=== PATIENT | male | born 1940 | race Caucasian/White ===

== ENCOUNTER 2017-02-12 09:50 | Emergency (ER) | payer MEDICARE ==
[~2017-02-12] VITALS: Ht 182.9 cm; Wt 93.0 kg
[~2017-02-12 09:50] MED LIST: ALLO300T PO; CLON1TAB3 PO; CLOP75TA PO; ESOM40CA PO; FLUO40CA2 PO; LOSA50TA6 PO; SIMV80TA3 PO; SUCR1TAB29 PO; TAMS0.4C2 PO
[2017-02-12] MEDS ORDERED: ONDANSETRON PF 4 MG/2 ML VIAL. IV ONE (10:15)
[2017-02-12] MEDS ORDERED: IV NORMAL SALINE 1000ML BAG 1,000 ML IV ONE (10:15)
--- NOTE | 2017-02-12 10:17 | RAD ---
Indication: Dizziness and lightheadedness beginning today. Technique: Upright portable chest radiograph was obtained. No comparison is available. Findings: The lungs are clear. The cardiopulmonary silhouette is within normal limits. The bony structures are intact. Leads overlie the patient. Impression: No active pulmonary disease.
[2017-02-12 10:25] LABS: CALCIUM 9.5 mg/dL (8.5-10.1); CREATININE 1.3 mg/dL (0.7-1.3); GFR 53.5
[2017-02-12 10:27] LABS: BASO % 1 % (0-3); EOS % 1 % (0-3); HEMATOCRIT 44.3 % (39.0-53.0); HEMOGLOBIN 14.7 g/dL (13.0-17.5); LYMPH # 1.2 x10^3/uL (1.0-4.8); LYMPH % 17 % (24-48); MEAN CORPUSCULAR HEMOGLOBIN 29 pg (25-35); MEAN CORPUSCULAR HGB CONC 33 g/dL (31-37); MEAN CORPUSCULAR VOLUME 86 fL (79-100); MONO % 10 % (0-9); NEUT % 72 % (31-73); PLATELET COUNT 168 x10^3/uL (140-400); RED BLOOD COUNT 5.17 x10^6/uL (4.30-5.70); RED CELL DISTRIBUTION WIDTH 14.3 % (11.5-14.5); WHITE BLOOD COUNT 7.4 x10^3/uL (4.0-11.0)
[2017-02-12] MEDS ORDERED: IOHEXOL 300 MG/ML 75 ML VIAL IV ONE (10:30)
[2017-02-12 10:31] LABS: ALBUMIN 3.8 g/dL (3.4-5.0); ALBUMIN/GLOBULIN RATIO 1.5 (1.0-1.7); MAGNESIUM 2.1 mg/dL (1.8-2.4); TOTAL BILIRUBIN 0.6 mg/dL (0.2-1.0); TOTAL PROTEIN 6.4 g/dL (6.4-8.2)
[2017-02-12 10:32] LABS: POTASSIUM ISTAT 3.9 mmol/L (3.5-5.0)
[2017-02-12 10:39] LABS: CKMB MASS 0.7 ng/mL (0.0-3.6); CREATINE KINASE 63 U/L (39-308)
[2017-02-12] MEDS ORDERED: CONTRAST GIVEN MC PRN (10:45)
--- NOTE | 2017-02-12 11:11 | RAD ---
Indication: 76-year-old with abdominal pain and near syncopal episode. Technique: Axial images and coronal and sagittal reformatted images are provided. 60 mL of intravenous Omnipaque 300 was administered without complication. No comparison is available. One or more of the following individualized dose reduction techniques were utilized for this examination: 1. Automated exposure control 2. Adjustment of the mA and/or kV according to patient size 3. Use of iterative reconstruction technique Findings: There is atelectasis in the lung bases. There is no pleural effusion. The heart is not enlarged. There is fatty infiltration of the liver. Gallbladder is unremarkable. Spleen is not enlarged. Pancreas and left adrenal are unremarkable. Right adrenal nodule measures 14 mm. Kidneys are symmetrically perfused with bilateral cysts, largest on the left measuring 3.9 cm. There is atheromatous disease in the abdominal aorta with mild ectasia. There is no small bowel obstruction or mural thickening. Colon is grossly unremarkable. Normal appendix is visualized Bladder is unremarkable. Prostate is mildly enlarged. Calcified phleboliths are noted. Degenerative changes in the spine are greatest at the lumbosacral junction. Impression: 1. No acute abdominal findings. 2. Fatty infiltration of the liver, mild. 3. Probable cysts in each kidney 4. Indeterminate small right adrenal nodule.
--- NOTE | 2017-02-12 11:15 | EKG ---
[facility] [address] [place] [address] Test Date: 2017-02-12 Test Time: 10:00:10 Pat Name: COREEN MALIN Department: Room: Gender: M Sql Tech: : 1940 Requested By: JAYA SALGADO Order Number: [id number] Reading MD: Kirsten German Measurements Intervals [place] Rate: 65 P: -28 VA: 214 QRS: -9 QRSD: 82 T: 27 QT: 388 QTc: 408 Interpretive Statements SINUS RHYTHM LEFTWARD AXIS RI6.01 Unconfirmed report Compared to ECG 08/20/2016 09:53:53 No significant changes Electronically Signed On 02-12-2017 15:22:21 CDT by Kirsten German
[2017-02-12 13:43] VITALS: BP 130/72
[2017-02-12 13:49] LABS: BILIRUBIN,URINE NEGATIVE (NEG); GLUCOSE,URINE NEGATIVE (NEG); NITRITE,URINE NEGATIVE (NEG); PH,URINE 7.5; PROTEIN,URINE NEGATIVE (NEG-TRACE)
[2017-02-12 14:07] LABS: BACTERIA,URINE 0 /HPF (0-FEW); RBC,URINE RARE /HPF (0-2); WBC,URINE RARE /HPF (0-4)
--- NOTE | 2017-02-12 14:24 | PHYS DOC ---
Past Medical History Past Medical History: CVA, High Cholesterol, Hypertension, Other Additional Past Medical Histor: gout Past Surgical History: Other Additional Past Surgical Histo: cataract surgery Alcohol Use: None Drug Use: None Adult General Chief Complaint Chief Complaint: NEAR SYNCOPE HPI HPI Patient is a 76 year old male who presents after near syncopal episode. Patient reports she started having some lower abdominal pain at mandaen. He then got sweaty and lightheaded, and almost passed out. He did not actually lose consciousness. EMS was called; on their arrival patient had heart rate in the 40s, and he was given 0.5 mg of atropine. Heart rate increased to 60s, and has been there since. Patient does report some nausea, and vomited once. He denies any chest discomfort or shortness of breath at any point. He is no longer lightheaded. Review of Systems Review of Systems Constitutional: Episode of lightheadedness, diaphoresis. Denies fever or chills Eyes: Denies change in visual acuity or eye pain HENT: Denies nasal congestion or sore throat Respiratory: Denies cough or shortness of breath Cardiovascular: Denies chest pain GI: Nausea, emesis x1. Denies abdominal pain, bloody stools or diarrhea : Denies dysuria or hematuria Musculoskeletal: Denies back pain or joint pain Integument: Denies rash or skin lesions Neurologic: Denies headache, focal weakness or sensory changes Current Medications Current Medications Current Medications Medications (Trade) Dose Ordered Sig/[place] Start Time Stop Time Status Last Admin Dose Admin Info (Do NOT chart on this entry -- for MONITORING) 1 each PRN DAILY PRN 02/12/17 10:45 02/12/17 15:14 DC Iohexol (Omnipaque 300 Mg/ml) 75 ml 1X ONCE 02/12/17 10:30 02/12/17 10:31 DC 02/12/17 10:50 75 ML Ondansetron HCl (Zofran) 4 mg 1X ONCE 02/12/17 10:15 02/12/17 10:16 DC 02/12/17 10:26 4 MG Sodium Chloride (Iv Sodium Chloride 0.9% 1000ml Bag) 1,000 ml @ 1,000 mls/hr 1X ONCE 02/12/17 10:15 02/12/17 11:14 DC 02/12/17 10:26 1,000 MLS/HR Allergies Allergies Allergies Coded Allergies Type Severity Reaction Last Updated Verified No Known Drug Allergies 08/20/16 No Physical Exam Physical Exam Constitutional: Well developed, well nourished, no acute distress, non-toxic appearance HENT: Normocephalic, atraumatic, bilateral external ears normal Eyes: PERRL, EOMI, conjunctiva normal, no discharge Neck: Normal range of motion, no stridor Cardiovascular: Heart rate normal, regular rhythm, no murmur Lungs & Thorax: Bilateral breath sounds clear to auscultation Abdomen: Bowel sounds normal, soft, non-distended, no TTP Skin: Warm, dry, no erythema, no rash Extremities: No obvious deformity, no edema Neurologic: Alert and oriented X 3, GCS 15, CN II-XII grossly intact, strength intact and symmetrical throughout, sensation to light touch intact throughout, no dystaxia noted Psychologic: Affect normal, judgement normal, mood normal Current Patient Data Vital Signs Vital Signs Date Time Temp Pulse Resp B/P Pulse Ox O2 Delivery O2 Flow Rate FiO2 02/12/17 13:43 56 130/72 99 Room Air 02/12/17 13:13 19 02/12/17 09:50 97.4 97.4 Lab Values Laboratory Tests Test 02/12/17 10:00 02/12/17 10:27 02/12/17 13:28 White Blood Count 7.4x10^3/uL (4.0-11.0) Red Blood Count 5.17x10^6/uL (4.30-5.70) Hemoglobin 14.7g/dL (13.0-17.5) Hematocrit 44.3% (39.0-53.0) Mean Corpuscular Volume 86fL (79-100) Mean Corpuscular Hemoglobin 29pg (25-35) Mean Corpuscular Hemoglobin Concent 33g/dL (31-37) Red Cell Distribution Width 14.3% (11.5-14.5) Platelet Count 168x10^3/uL (140-400) Neutrophils (%) (Auto) 72% (31-73) Lymphocytes (%) (Auto) 17% (24-48) L Monocytes (%) (Auto) 10% (0-9) H Eosinophils (%) (Auto) 1% (0-3) Basophils (%) (Auto) 1% (0-3) Neutrophils # (Auto) 5.3x10^3uL (1.8-7.7) Lymphocytes # (Auto) 1.2x10^3/uL (1.0-4.8) Monocytes # (Auto) 0.7x10^3/uL (0.0-1.1) Eosinophils # (Auto) 0.1x10^3/uL (0.0-0.7) Basophils # (Auto) 0.0x10^3/uL (0.0-0.2) Sodium Level 143mmol/L (136-145) Potassium Level 4.0mmol/L (3.5-5.1) Chloride Level 107mmol/L (98-107) Carbon Dioxide Level 33mmol/L (21-32) H Anion Gap 3 (6-14) L 15mmol/L (6-14) H Blood Urea Nitrogen 23mg/dL (8-26) Creatinine 1.3mg/dL (0.7-1.3) Estimated GFR (Cockcroft-Gault) 53.5 BUN/Creatinine Ratio 18 (6-20) Glucose Level 101mg/dL (70-99) H 93mg/dL (70-99) Lactic Acid Level 1.6mmol/L (0.4-2.0) Calcium Level 9.5mg/dL (8.5-10.1) Magnesium Level 2.1mg/dL (1.8-2.4) Total Bilirubin 0.6mg/dL (0.2-1.0) Aspartate Amino Transferase (AST) 24U/L (15-37) Alanine Aminotransferase (ALT) 34U/L (16-63) Alkaline Phosphatase 84U/L (46-116) Creatine Kinase 63U/L (39-308) Creatine Kinase MB (Mass) 0.7ng/mL (0.0-3.6) Creatine Kinase MB Relative Index % (0-4) Troponin I Quantitative < 0.017ng/mL (0.000-0.055) Total Protein 6.4g/dL (6.4-8.2) Albumin 3.8g/dL (3.4-5.0) Albumin/Globulin Ratio 1.5 (1.0-1.7) Lipase 141U/L (73-393) POC Hemoglobin 15.0g/dL (14-18) POC Hematocrit 44% (37-52) POC Sodium 141mmol/L (135-145) POC Potassium 3.9mmol/L (3.5-5.0) POC Chloride 99mmol/L (98-110) POC Total CO2 32mmol/L (23-32) POC Blood Urea Nitrogen 25mg/dL (8-26) POC Creatinine 1.2mg/dL (0.5-1.4) POC Ionized Calcium (Yolanda) 1.28mmol/L (1.13-1.32) Urine Collection Type Void Urine Color Yellow Urine Clarity Clear Urine pH 7.5 Urine Specific Isabel[place] >=1.030 Urine Protein Negativemg/dL (NEG-TRACE) Urine Glucose (UA) Negativemg/dL (NEG) Urine Ketones (Stick) Negativemg/dL (NEG) Urine Blood Negative (NEG) Urine Nitrite Negative (NEG) Urine Bilirubin Negative (NEG) Urine Urobilinogen Dipstick 1.0mg/dL (0.2 mg/dL) Urine Leukocyte Esterase Negative (NEG) Urine RBC Rare/HPF (0-2) Urine WBC Rare/HPF (0-4) Urine Squamous Epithelial Cells None/LPF Urine Bacteria 0/HPF (0-FEW) Urine Hyaline Casts Few/HPF Urine Mucus Slight/LPF Laboratory Tests 02/12/17 10:00 Laboratory Tests 02/12/17 10:00 02/12/17 10:27 EKG EKG EKG (my read): sinus rhythm, rate 65, borderline LAD, intervals wnl, no acute ST /T changes Radiology/Procedures Radiology/Procedures CT A/P: Impression: 1. No acute abdominal findings. 2. Fatty infiltration of the liver, mild. 3. Probable cysts in each kidney 4. Indeterminate small right adrenal nodule. CXR: Impression: No active pulmonary disease. Course & Med Decision Making Course & Med Decision Making Pertinent Labs and Imaging studies reviewed. (See chart for details) Patient is 76-year-old male who presents after a near syncopal episode. Description sounds like vasovagal episode. Patient essentially asymptomatic at this point in time (other than minimal nausea). Physical exam shows no concerning findings. Will obtain EKG, chest x-ray, CT abdomen/pelvis, labs to evaluate. IV fluid bolus and dose of Zofran ordered. EKG and imaging results as above. Labs largely unremarkable. Discussed results with patient, who remains asymptomatic. Patient discharged home with instructions for close follow-up, strict return precautions. Dragon Disclaimer Dragon Disclaimer This electronic medical record was generated, in whole or in part, using a voice recognition dictation system. Departure Departure Impression: Primary Impression: Vasovagal episode Disposition: HOME, SELF-CARE Condition: IMPROVED Referrals: BATOOL KIMBLE (PCP) Patient Instructions: Vagal Nerve Stimulation Additional Instructions: Thank you for allowing us to provide care today in the Emergency Department. It appears that her symptoms this morning were caused by a vasovagal episode. Schedule a follow up appointment with your primary care doctor. Return promptly to the Emergency Department if you develop any new or concerning symptoms, such as difficulty breathing or loss of consciousness. BERTHA VALERIO MD Feb 12, 2017 14:24
== END 2017-02-12 14:35 | disposition home or self-care (01) ==
LOC: ER 09:50
DX: R55 Syncope and collapse (principal); R11.2 Nausea with vomiting, unspecified; R10.30 Lower abdominal pain, unspecified; E78.00 Pure hypercholesterolemia, unspecified; I10 Essential (primary) hypertension; Z86.73 Personal history of transient ischemic attack (TIA), and cerebral infarction without residual deficits; M10.9 Gout, unspecified; Z98.49 Cataract extraction status, unspecified eye
CPT/HCPCS: 36415; 71010; 74177; 80047; 80053; 81001; 82553; 83605; 83690; 83735; 84484; 85027; 93005; 96361; 96374; 99285; J2405; J7030; Q9967

== ENCOUNTER 2017-10-15 08:55 | Inpatient (IN) | payer MEDICARE ==
[~2017-10-15] VITALS: Ht 180.3 cm; Wt 89.4 kg
[~2017-10-15 08:55] MED LIST changes: +LANS15CA78 PO; -SUCR1TAB29 PO; +SUCR1TAB35 PO
--- NOTE | 2017-10-15 09:21 | EKG ---
[facility] [address] [place] [address] Test Date: 2017-10-15 Test Time: 09:10:09 Pat Name: COREEN MALIN Department: Room: Gender: M Financial Advocate: MADHURI : 1940 Requested By: JAYA STOVER Order Number: [id number] Reading MD: Adal Guerrero MD Measurements Intervals [place] Rate: 74 P: 0 AK: 188 QRS: -1 QRSD: 84 T: 22 QT: 362 QTc: 402 Interpretive Statements SINUS RHYTHM Electronically Signed On 10-16-2017 12:51:49 CONTRACT IMPLEMENTATION ANALYST by Adal Guerrero MD
--- NOTE | 2017-10-15 09:43 | RAD ---
AP PORTABLE CHEST Clinical Indication: Syncope. Upper abdominal pain and nausea. Comparison: Two-view chest 07/11/2017. Findings: There is left chest dual-chamber pacer. The cardiomediastinal silhouette is normal. Linear scarring or atelectasis at the left costophrenic angle. Lungs are otherwise clear. There is no pneumothorax. No pleural effusion is appreciated. There is no acute bone abnormality. IMPRESSION: No acute cardiopulmonary process.
[2017-10-15 10:06] LABS: BASO % 0 % (0-3); CALCIUM 9.6 mg/dL (8.5-10.1); CREATININE 1.1 mg/dL (0.7-1.3); EOS % 0 % (0-3); GFR 64.7; HEMATOCRIT 50.5 % (39.0-53.0); HEMOGLOBIN 16.8 g/dL (13.0-17.5); LYMPH # 0.8 x10^3/uL (1.0-4.8); LYMPH % 12 % (24-48); MEAN CORPUSCULAR HEMOGLOBIN 30 pg (25-35); MEAN CORPUSCULAR HGB CONC 33 g/dL (31-37); MEAN CORPUSCULAR VOLUME 89 fL (79-100); MONO % 7 % (0-9); NEUT % 80 % (31-73); PLATELET COUNT 197 x10^3/uL (140-400); POTASSIUM 3.7 mmol/L (3.5-5.1); RED BLOOD COUNT 5.68 x10^6/uL (4.30-5.70); RED CELL DISTRIBUTION WIDTH 14.4 % (11.5-14.5); WHITE BLOOD COUNT 6.6 x10^3/uL (4.0-11.0)
--- NOTE | 2017-10-15 10:07 | ED.ADGEN ---
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 Guerrero. Patient states that he was at [employer], he states that he been standing for approximately 5 minutes, [facility], when he had a sudden onset of sharp shooting pain underneath his "breastbone", without radiation, associated with nausea and one episode of vomiting, then had a witnessed syncopal event. Patient was lowered to the ground , did not fall or strike his head, although he does have a small abrasion on his knee and on his finger for when he swayed 4. He denies any focal weakness, numbness or tingling, any headache, any vision changes, any changes in cognition , any preceding GI symptoms, chest pain shortness of breath, recent travel, swelling extremities or other complaints. He states that "this is exactly like what happened" with his 2 previous episodes of syncope, which also occurred while he was at [employer]. Patient's episode was witnessed by family, they deny any seizure-like activity, or any deviation from the patient reports, they stated that he regained consciousness quickly, but it took a few minutes to come back to normal. Patient is currently a and O 4 in the emergency department moving all extremities and denying all complaints, he states that he is feeling much better. Tetanus is up-to-date. Review of Systems Review of Systems Constitutional: Denies fever or chills. [] Eyes: Denies change in visual acuity. [] HENT: Denies nasal congestion or sore throat. [] Respiratory: Denies cough or shortness of breath. [] Cardiovascular: Denies chest pain or edema. [] Sudden onset of substernal chest pain associated with nausea and vomiting with a syncopal episode. GI: Denies abdominal pain, nausea, vomiting, bloody stools or diarrhea. [] : Denies dysuria. [] Musculoskeletal: Denies back pain or joint pain. [] Integument: Denies rash. [] Neurologic: Denies headache, focal weakness or sensory changes. [] Syncope. Endocrine: Denies polyuria or polydipsia. [] Lymphatic: Denies swollen glands. [] Psychiatric: Denies depression or anxiety. [] Allergies Allergies Allergies Coded Allergies Type Severity Reaction Last Updated Verified No Known Drug Allergies 08/20/16 No Physical Exam Physical Exam Constitutional: Well developed, well nourished, no acute distress, non-toxic appearance. [] HENT: Normocephalic, atraumatic, bilateral external ears normal, oropharynx moist, no oral exudates, nose normal. [] Eyes: PERRLA, EOMI, conjunctiva normal, no discharge. [] Neck: Normal range of motion, no tenderness, supple, no stridor. [] Cardiovascular:Heart rate regular rhythm, no murmur, S1, S2, no rubs or gallops. No chest wall crepitus or tenderness, patient with pacemaker in place, site is clean dry and intact in the left chest wall, no crepitus, no abnormalities identified.[] Lungs & Thorax: Bilateral breath sounds clear to auscultation [] Abdomen: Bowel sounds normal, soft, no tenderness, no masses, no pulsatile masses. [] Skin: Warm, dry, no erythema, no rash. [] Back: No tenderness, no CVA tenderness. [] Extremities: No tenderness, no cyanosis, no clubbing, ROM intact, no edema. Negative Homans sign. Patient noted to have a small abrasion just distal to the left knee, full range of motion without pain, noted to have a small abrasion on the fifth phalanx, with full range of motion that is painless.[] Neurologic: Alert and oriented X 3, normal motor function, normal sensory function, no focal deficits noted. [] Psychologic: Affect normal, judgement normal, mood normal. [] Current Patient Data Vital Signs Vital Signs Date Time Temp Pulse Resp B/P (MAP) Pulse Ox O2 Delivery O2 Flow Rate FiO2 10/15/17 12:02 72 20 142/74 (96) 98 Room Air 10/15/17 09:33 98.2 98.2 Lab Values Laboratory Tests Test 10/15/17 09:30 10/15/17 11:10 White Blood Count 6.6 x10^3/uL (4.0-11.0) Red Blood Count 5.68 x10^6/uL (4.30-5.70) Hemoglobin 16.8 g/dL (13.0-17.5) Hematocrit 50.5 % (39.0-53.0) Mean Corpuscular Volume 89 fL (79-100) Mean Corpuscular Hemoglobin 30 pg (25-35) Mean Corpuscular Hemoglobin Concent 33 g/dL (31-37) Red Cell Distribution Width 14.4 % (11.5-14.5) Platelet Count 197 x10^3/uL (140-400) Neutrophils (%) (Auto) 80 % (31-73) H Lymphocytes (%) (Auto) 12 % (24-48) L Monocytes (%) (Auto) 7 % (0-9) Eosinophils (%) (Auto) 0 % (0-3) Basophils (%) (Auto) 0 % (0-3) Neutrophils # (Auto) 5.3 x10^3uL (1.8-7.7) Lymphocytes # (Auto) 0.8 x10^3/uL (1.0-4.8) L Monocytes # (Auto) 0.5 x10^3/uL (0.0-1.1) Eosinophils # (Auto) 0.0 x10^3/uL (0.0-0.7) Basophils # (Auto) 0.0 x10^3/uL (0.0-0.2) Prothrombin Time 12.9 SEC (11.7-14.0) Prothrombin Time INR 1.0 (0.8-1.1) PTT 28 SEC (24-38) Sodium Level 138 mmol/L (136-145) Potassium Level 3.7 mmol/L (3.5-5.1) Chloride Level 101 mmol/L (98-107) Carbon Dioxide Level 32 mmol/L (21-32) Anion Gap 5 (6-14) L Blood Urea Nitrogen 15 mg/dL (8-26) Creatinine 1.1 mg/dL (0.7-1.3) Estimated GFR (Cockcroft-Gault) 64.7 BUN/Creatinine Ratio 14 (6-20) Glucose Level 103 mg/dL (70-99) H Calcium Level 9.6 mg/dL (8.5-10.1) Magnesium Level 1.9 mg/dL (1.8-2.4) Total Bilirubin 0.9 mg/dL (0.2-1.0) Aspartate Amino Transferase (AST) 27 U/L (15-37) Alanine Aminotransferase (ALT) 42 U/L (16-63) Alkaline Phosphatase 96 U/L (46-116) Troponin I Quantitative < 0.017 ng/mL (0.000-0.055) Total Protein 7.0 g/dL (6.4-8.2) Albumin 4.3 g/dL (3.4-5.0) Albumin/Globulin Ratio 1.6 (1.0-1.7) Urine Collection Type Unknown Urine Color Nancy Urine Clarity Cloudy Urine pH 7.0 Urine Specific [place] 1.020 Urine Protein 30 mg/dL (NEG-TRACE) Urine Glucose (UA) Negative mg/dL (NEG) Urine Ketones (Stick) Trace mg/dL (NEG) Urine Blood Negative (NEG) Urine Nitrite Negative (NEG) Urine Bilirubin Small (NEG) Urine Urobilinogen Dipstick 1.0 mg/dL (0.2 mg/dL) Urine Leukocyte Esterase Small (NEG) Urine RBC 0 /HPF (0-2) Urine WBC 1-4 /HPF (0-4) Urine Squamous Epithelial Cells Few /LPF Urine Bacteria 0 /HPF (0-FEW) Urine Hyaline Casts Moderate /HPF Urine Mucus Slight /LPF Urine Opiates Screen Neg (NEG) Urine Methadone Screen Neg (NEG) Urine Barbiturates Neg (NEG) Urine Phencyclidine Screen Neg (NEG) Urine Amphetamine/Methamphetamine Neg (NEG) Urine Benzodiazepines Screen Neg (NEG) Urine Cocaine Screen Neg (NEG) Urine Cannabinoids Screen Neg (NEG) Urine Ethyl Alcohol Neg (NEG) Laboratory Tests 10/15/17 09:30 Laboratory Tests 10/15/17 09:30 EKG EKG EC: Sinus rhythm, left axis deviation, heart rate 74 bpm, no ST elevations, no depressions, aside from left axis deviation, no specific ECG abnormalities identified. QTC of 42, [place] 188, QRS of 84, as interpreted by me.[] Radiology/Procedures Radiology/Procedures [][facility] [address] [place] [address] IMAGING REPORT Signed PATIENT: COREEN MALIN ACCOUNT: [id number] : 1940 LOCATION: ER AGE: 77 SEX: M EXAM STATUS: PRE ER ORD. PHYSICIAN: JAYA STOVER DO REASON: Syncope PROCEDURE: PORTABLE CHEST 1V AP PORTABLE CHEST Clinical Indication: Syncope. Upper abdominal pain and nausea. Comparison: Two-view chest 07/11/2017. Findings: There is left chest dual-chamber pacer. The cardiomediastinal silhouette is normal. Linear scarring or atelectasis at the left costophrenic angle. Lungs are otherwise clear. There is no pneumothorax. No pleural effusion is appreciated. There is no acute bone abnormality. IMPRESSION: No acute cardiopulmonary process. DICTATED and SIGNED BY: JOSE RICE MD DATE: 10/15/17 0936 CC: JAYA STOVER DO; BATOOL KIMBLE ~ Course & Med Decision Making Course & Med Decision Making Pertinent Labs and Imaging studies reviewed. (See chart for details) Patient well-appearing at this time, and at 4, CT of head obtained along with imaging of the chest, laboratory studies, an interrogation of the patient's pacemaker. No concerning findings were identified. I did discuss this with patient and family at bedside, due to the patient's age, comorbidities, and unclear etiology of syncopal be, although it may be vasovagal, patient is agreeable for admission the hospital for acute monitoring and evaluation. I did discuss with Dr. Stringer of internal medicine, patient was accepted to her service as a full admission to the medical telemetry floor, with consultation placed for cardiology. Patient remained stable and comfortable in the emergency department without recurrence of symptoms, with bridge orders entered per discussion. Dragon Disclaimer Dragon Disclaimer This electronic medical record was generated, in whole or in part, using a voice recognition dictation system. Departure Impression: Primary Impression: Syncope Disposition: ADMITTED INPATIENT Condition: STABLE JAYA STOVER DO Oct 15, 2017 10:07
[2017-10-15 10:13] LABS: ALBUMIN 4.3 g/dL (3.4-5.0); ALBUMIN/GLOBULIN RATIO 1.6 (1.0-1.7); MAGNESIUM 1.9 mg/dL (1.8-2.4); TOTAL BILIRUBIN 0.9 mg/dL (0.2-1.0)
[2017-10-15 10:22] LABS: PROTHROMBIN TIME PATIENT 12.9 SEC (11.7-14.0)
--- NOTE | 2017-10-15 10:37 | RAD ---
PQRS Compliance Statement: One or more of the following individualized dose reduction techniques were utilized for this examination: 1. Automated exposure control 2. Adjustment of the mA and/or kV according to patient size 3. Use of iterative reconstruction technique CT HEAD WITHOUT CONTRAST History: Syncope x this morning . Comparison: CT head without contrast 08/20/2016. MR brain with and without contrast, 08/21/2016. Technique: Axial images are obtained of the head from the skull base through the vertex without IV contrast. Findings: No mass-effect, midline shift, hemorrhage or obvious acute infarction is identified. Basilar cisterns are patent. The ventricles and sulci are prominent, consistent with age-related cerebral atrophy. There is subcortical and periventricular white matter hypoattenuation. This is a nonspecific finding but is commonly due to chronic small vessel ischemic disease in a patient of this age. Bone windows demonstrate no acute calvarial abnormality. The visualized paranasal sinuses appear clear. Mastoid air cells are well aerated. IMPRESSION: No acute intracranial abnormality. Stable senescent changes.
[2017-10-15 11:17] LABS: BILIRUBIN,URINE SMALL (NEG); GLUCOSE,URINE NEGATIVE (NEG); NITRITE,URINE NEGATIVE (NEG); PROTEIN,URINE 30 mg/dL (NEG-TRACE)
[2017-10-15 11:23] LABS: BARBITURATES NEG (NEG); BENZODIAZEPINES NEG (NEG); CANNABINOIDS NEG (NEG); COCAINE NEG (NEG); METHADONE NEG (NEG); OPIATES NEG (NEG); PHENCYCLIDINE NEG (NEG)
[2017-10-15 11:34] LABS: BACTERIA,URINE 0 /HPF (0-FEW); RBC,URINE 0 /HPF (0-2); SQUAMOUS EPITHELIAL CELL,UR FEW /LPF
[2017-10-15 13:30] VITALS: BP 160/84
[2017-10-15] MEDS ORDERED: ONDANSETRON PF 4 MG/2 ML VIAL. IV PRN (13:45)
[2017-10-15] MEDS ORDERED: ACETAMINOPHEN 325 MG TABLET. PO PRN (13:45)
--- NOTE | 2017-10-15 14:13 | PDOC2 ---
CONSULT Date of Consult Date of Consult DATE: 10/15/17 TIME: 14:13 Reason for Consult Reason for Consult: Syncope Referring Physician Referring Physician: Dr. Galeana Identification/Chief Complaint Chief Complaint Syncope Problems: Source Source: Chart review, Patient History of Present Illness Reason for Visit: 77-year-old male with history of sick sinus syndrome and syncope s/p permanent pacemaker implantation by my partner Dr. Guerrero in June 2017 was apparently at [employer] standing for 5 minutes when he suddenly felt queasy in his stomach, dizzy and passed out. Patient stated that this is the first time his syncope recurred after pacemaker implantation. He denied any chest pain, orthopnea/PND or palpitations. Past Medical History Cardiovascular: Hyperlipidemia, Other (SSS s/p permanent pacemaker implantation ) Pulmonary: Bronchitis CENTRAL NERVOUS SYSTEM: TIA GI: GERD Rheumatologic: Gout Past Surgical History Past Surgical History: Pacemaker Family History Family History: Hypertension Social History ALCOHOL: none Drugs: None Current Problem List Problem List Problems Medical Problems: (1) Syncope Status: Acute Current Medications Current Medications Current Medications Ondansetron HCl (Zofran) 4 mg PRN Q8HRS PRN IV NAUSEA/VOMITING; Start at 13:45; Stop 10/16/17 at 13:44 Acetaminophen (Tylenol) 650 mg PRN Q4HRS PRN PO FEVER; Start 10/15/17 at 13:45 ; Stop 10/16/17 at 13:44 Active Scripts Active Reported Prevacid (Lansoprazole) 15 Mg Capsule.dr 1 Cap PO DAILY Clonazepam 1 Mg Tablet 1 Mg PO DAILY Clopidogrel (Clopidogrel Bisulfate) 75 Mg Tablet 75 Mg PO DAILY Tamsulosin Hcl 0.4 Mg Cap.er.24h 0.4 Mg PO DAILY Simvastatin 80 Mg Tablet 80 Mg PO DAILY Fluoxetine Hcl 40 Mg Capsule 40 Mg PO DAILY Carafate (Sucralfate) 1 Gm Tablet 1 Gm PO BID Losartan Potassium 50 Mg Tablet 50 Mg PO DAILY Allopurinol 300 Mg Tablet 300 Mg PO DAILY Allergies Allergies: Coded Allergies: No Known Drug Allergies (Unverified , 08/20/16) ROS PSYCHOLOGICAL ROS: No: Hallucinations Eyes: No Loss of vision Respiratory: No: Shortness of breath Cardiovascular: No Chest Pain Gastrointestinal: No Vomiting Genitourinary: No Hematuria Neurological: Yes Other (syncope), No Seizures Skin: No Rash Physical Exam General: Alert, Oriented X3 HEENT: Atraumatic, PERRLA Lungs: Clear to auscultation Heart: Regular rate Abdomen: Soft, No tenderness Extremities: No edema Psych/Mental Status: Mood NL Vitals VITALS Vital Signs Date Time Temp Pulse Resp B/P (MAP) Pulse Ox O2 Delivery O2 Flow Rate FiO2 10/15/17 13:03 65 18 140/65 (90) 98 Room Air 10/15/17 09:33 98.2 98.2 Labs Labs Laboratory Tests Test 10/15/17 09:30 10/15/17 11:10 White Blood Count 6.6 x10^3/uL (4.0-11.0) Red Blood Count 5.68 x10^6/uL (4.30-5.70) Hemoglobin 16.8 g/dL (13.0-17.5) Hematocrit 50.5 % (39.0-53.0) Mean Corpuscular Volume 89 fL (79-100) Mean Corpuscular Hemoglobin 30 pg (25-35) Mean Corpuscular Hemoglobin Concent 33 g/dL (31-37) Red Cell Distribution Width 14.4 % (11.5-14.5) Platelet Count 197 x10^3/uL (140-400) Neutrophils (%) (Auto) 80 % (31-73) Lymphocytes (%) (Auto) 12 % (24-48) Monocytes (%) (Auto) 7 % (0-9) Eosinophils (%) (Auto) 0 % (0-3) Basophils (%) (Auto) 0 % (0-3) Neutrophils # (Auto) 5.3 x10^3uL (1.8-7.7) Lymphocytes # (Auto) 0.8 x10^3/uL (1.0-4.8) Monocytes # (Auto) 0.5 x10^3/uL (0.0-1.1) Eosinophils # (Auto) 0.0 x10^3/uL (0.0-0.7) Basophils # (Auto) 0.0 x10^3/uL (0.0-0.2) Prothrombin Time 12.9 SEC (11.7-14.0) Prothromb Time International Ratio 1.0 (0.8-1.1) Activated Partial Thromboplast Time 28 SEC (24-38) Sodium Level 138 mmol/L (136-145) Potassium Level 3.7 mmol/L (3.5-5.1) Chloride Level 101 mmol/L (98-107) Carbon Dioxide Level 32 mmol/L (21-32) Anion Gap 5 (6-14) Blood Urea Nitrogen 15 mg/dL (8-26) Creatinine 1.1 mg/dL (0.7-1.3) Estimated GFR (Cockcroft-Gault) 64.7 BUN/Creatinine Ratio 14 (6-20) Glucose Level 103 mg/dL (70-99) Calcium Level 9.6 mg/dL (8.5-10.1) Magnesium Level 1.9 mg/dL (1.8-2.4) Total Bilirubin 0.9 mg/dL (0.2-1.0) Aspartate Amino Transf (AST/SGOT) 27 U/L (15-37) Alanine Aminotransferase (ALT/SGPT) 42 U/L (16-63) Alkaline Phosphatase 96 U/L (46-116) Troponin I Quantitative < 0.017 ng/mL (0.000-0.055) Total Protein 7.0 g/dL (6.4-8.2) Albumin 4.3 g/dL (3.4-5.0) Albumin/Globulin Ratio 1.6 (1.0-1.7) Urine Collection Type Unknown Urine Color Nancy Urine Clarity Cloudy Urine pH 7.0 Urine Specific [place] 1.020 Urine Protein 30 mg/dL (NEG-TRACE) Urine Glucose (UA) Negative mg/dL (NEG) Urine Ketones (Stick) Trace mg/dL (NEG) Urine Blood Negative (NEG) Urine Nitrite Negative (NEG) Urine Bilirubin Small (NEG) Urine Urobilinogen Dipstick 1.0 mg/dL (0.2 mg/dL) Urine Leukocyte Esterase Small (NEG) Urine RBC 0 /HPF (0-2) Urine WBC 1-4 /HPF (0-4) Urine Squamous Epithelial Cells Few /LPF Urine Bacteria 0 /HPF (0-FEW) Urine Hyaline Casts Moderate /HPF Urine Mucus Slight /LPF Urine Opiates Screen Neg (NEG) Urine Methadone Screen Neg (NEG) Urine Barbiturates Neg (NEG) Urine Phencyclidine Screen Neg (NEG) Urine Amphetamine/Methamphetamine Neg (NEG) Urine Benzodiazepines Screen Neg (NEG) Urine Cocaine Screen Neg (NEG) Urine Cannabinoids Screen Neg (NEG) Urine Ethyl Alcohol Neg (NEG) Laboratory Tests Test 10/15/17 09:30 10/15/17 11:10 White Blood Count 6.6 x10^3/uL (4.0-11.0) Red Blood Count 5.68 x10^6/uL (4.30-5.70) Hemoglobin 16.8 g/dL (13.0-17.5) Hematocrit 50.5 % (39.0-53.0) Mean Corpuscular Volume 89 fL (79-100) Mean Corpuscular Hemoglobin 30 pg (25-35) Mean Corpuscular Hemoglobin Concent 33 g/dL (31-37) Red Cell Distribution Width 14.4 % (11.5-14.5) Platelet Count 197 x10^3/uL (140-400) Neutrophils (%) (Auto) 80 % (31-73) Lymphocytes (%) (Auto) 12 % (24-48) Monocytes (%) (Auto) 7 % (0-9) Eosinophils (%) (Auto) 0 % (0-3) Basophils (%) (Auto) 0 % (0-3) Neutrophils # (Auto) 5.3 x10^3uL (1.8-7.7) Lymphocytes # (Auto) 0.8 x10^3/uL (1.0-4.8) Monocytes # (Auto) 0.5 x10^3/uL (0.0-1.1) Eosinophils # (Auto) 0.0 x10^3/uL (0.0-0.7) Basophils # (Auto) 0.0 x10^3/uL (0.0-0.2) Prothrombin Time 12.9 SEC (11.7-14.0) Prothromb Time International Ratio 1.0 (0.8-1.1) Activated Partial Thromboplast Time 28 SEC (24-38) Sodium Level 138 mmol/L (136-145) Potassium Level 3.7 mmol/L (3.5-5.1) Chloride Level 101 mmol/L (98-107) Carbon Dioxide Level 32 mmol/L (21-32) Anion Gap 5 (6-14) Blood Urea Nitrogen 15 mg/dL (8-26) Creatinine 1.1 mg/dL (0.7-1.3) Estimated GFR (Cockcroft-Gault) 64.7 BUN/Creatinine Ratio 14 (6-20) Glucose Level 103 mg/dL (70-99) Calcium Level 9.6 mg/dL (8.5-10.1) Magnesium Level 1.9 mg/dL (1.8-2.4) Total Bilirubin 0.9 mg/dL (0.2-1.0) Aspartate Amino Transf (AST/SGOT) 27 U/L (15-37) Alanine Aminotransferase (ALT/SGPT) 42 U/L (16-63) Alkaline Phosphatase 96 U/L (46-116) Troponin I Quantitative < 0.017 ng/mL (0.000-0.055) Total Protein 7.0 g/dL (6.4-8.2) Albumin 4.3 g/dL (3.4-5.0) Albumin/Globulin Ratio 1.6 (1.0-1.7) Urine Collection Type Unknown Urine Color Nancy Urine Clarity Cloudy Urine pH 7.0 Urine Specific [place] 1.020 Urine Protein 30 mg/dL (NEG-TRACE) Urine Glucose (UA) Negative mg/dL (NEG) Urine Ketones (Stick) Trace mg/dL (NEG) Urine Blood Negative (NEG) Urine Nitrite Negative (NEG) Urine Bilirubin Small (NEG) Urine Urobilinogen Dipstick 1.0 mg/dL (0.2 mg/dL) Urine Leukocyte Esterase Small (NEG) Urine RBC 0 /HPF (0-2) Urine WBC 1-4 /HPF (0-4) Urine Squamous Epithelial Cells Few /LPF Urine Bacteria 0 /HPF (0-FEW) Urine Hyaline Casts Moderate /HPF Urine Mucus Slight /LPF Urine Opiates Screen Neg (NEG) Urine Methadone Screen Neg (NEG) Urine Barbiturates Neg (NEG) Urine Phencyclidine Screen Neg (NEG) Urine Amphetamine/Methamphetamine Neg (NEG) Urine Benzodiazepines Screen Neg (NEG) Urine Cocaine Screen Neg (NEG) Urine Cannabinoids Screen Neg (NEG) Urine Ethyl Alcohol Neg (NEG) Assessment/Plan Assessment/Plan 1. Syncope, most probably vasovagal since he had stomach discomfort before he passed out. He could have had significant vasodepressor response during this episode. Pacemaker interrogation in ED showed normal function. 2-D echo in June 2017 showed normal LV function without any significant structural abnormalities. 2. Hypertension: Controlled 3. Hyperlipidemia: Continue statin therapy 4. History of TIA: Currently on Plavix Thank you for your consultation HARDIK BRAGG MD Oct 15, 2017 14:13
[2017-10-15 15:00] VITALS: BP 148/82
[2017-10-15 19:55] VITALS: BP 128/71
[2017-10-15] MEDS ORDERED: SIMVASTATIN 40 MG TABLET. PO SCH (21:00)
--- NOTE | 2017-10-15 21:27 | HP ---
ADMIT DATE: 10/15/2017 CHIEF COMPLAINT: Syncope. HISTORY OF PRESENT ILLNESS: The patient is a 77-year-old gentleman with history of sick sinus syndrome and syncopal events, who had a pacemaker placed subsequently in June of 2017. He had been doing well. Today, however, once again in restoration, he started feeling dizzy, had severe subxiphoid pain and burning and tried to go outside to get some fresh air. There he leaned against the restoration wall and another person actually helped him slight down to the ground. He states he did not lose consciousness, recovered fairly quickly. Denies any chest pain. Denies any diaphoresis. When he awoke, he actually felt much better. Pain has resolved. In the Emergency Room, he was found with stable labs and stable vital signs and admitted for further management. PAST MEDICAL HISTORY: Sick sinus syndrome, status post pacer placement, hyperlipidemia, hypertension, CVA and gout. He is status post cataract surgery. FAMILY HISTORY: Hypertension. SOCIAL HISTORY: Never smoked. No toxic habits. ALLERGIES: No known drug allergies. MEDICATIONS: MAR reconciled with home medications. REVIEW OF SYSTEMS: Positive as per HPI. Denies any ongoing nausea, vomiting or any diarrhea. No abdominal pain. No other symptoms in rest of organ system review. PHYSICAL EXAMINATION: VITAL SIGNS: From today show a blood pressure of 148/82, heart rate of 69 and respiratory rate of 20. He is afebrile. GENERAL: This is a well-nourished 77-year-old gentleman, awake and alert, in no acute distress. LUNGS: Clear. HEART: Has regular rate and rhythm. ABDOMEN: Has positive bowel sounds. Soft and nontender. EXTREMITIES: Show no edema. SKIN: Warm, soft and dry without any rash. NEUROLOGICAL: He appears grossly intact. LABORATORY DATA: CBC with a WBC of 6.6, hemoglobin 16.8 and platelets of 197. Chemistries with a BUN and creatinine of 15 and 1.1, normal electrolytes and normal LFTs. Glucose at 103. Initial troponin negative. Tox screen completely negative. Urine negative for infectious symptoms. IMAGING STUDIES: Chest x-ray in the Emergency Room revealed no acute cardiopulmonary process. Noncontrast CT of the head shows no acute intracranial abnormality. ASSESSMENT AND PLAN: The patient is a 77-year-old gentleman with sick sinus syndrome, status post pacer placement 3 months ago who now presents with syncopal episode. His vital signs at the event were actually completely within normal. A bystander actually checked his blood pressure and it was in the 140s/70s. Further workup as per Cardiology, Dr. Ordaz has seen the patient already. We will continue all his other home medications in the meantime. TAYLOR JACOB MD DR: UR/nts JOB#: [id number] / [id number] [facility] Grace
[2017-10-15 22:19] VITALS: BP 116/75
[2017-10-16 01:54] LABS: BASO % 0 % (0-3); EOS % 1 % (0-3); HEMATOCRIT 45.6 % (39.0-53.0); HEMOGLOBIN 15.1 g/dL (13.0-17.5); LYMPH # 1.4 x10^3/uL (1.0-4.8); LYMPH % 22 % (24-48); MEAN CORPUSCULAR HEMOGLOBIN 29 pg (25-35); MEAN CORPUSCULAR HGB CONC 33 g/dL (31-37); MEAN CORPUSCULAR VOLUME 88 fL (79-100); MONO % 8 % (0-9); NEUT % 70 % (31-73); PLATELET COUNT 172 x10^3/uL (140-400); RED BLOOD COUNT 5.16 x10^6/uL (4.30-5.70); RED CELL DISTRIBUTION WIDTH 14.3 % (11.5-14.5); WHITE BLOOD COUNT 6.3 x10^3/uL (4.0-11.0)
[2017-10-16 02:04] LABS: CALCIUM 9.3 mg/dL (8.5-10.1); CREATININE 0.7 mg/dL (0.7-1.3); GFR 109.1; POTASSIUM 3.7 mmol/L (3.5-5.1)
[2017-10-16 03:34] VITALS: BP 132/79
[2017-10-16 07:00] VITALS: BP 142/88
[2017-10-16] MEDS ORDERED: CLOPIDOGREL BISULFATE 75 MG TABLET PO SCH (07:00)
[2017-10-16] MEDS ORDERED: PANTOPRAZOLE 40 MG TABLET.DR. PO SCH (07:30)
[2017-10-16] MEDS ORDERED: ALLOPURINOL 300 MG TABLET. PO SCH (09:00)
[2017-10-16] MEDS ORDERED: FLUoxetine HCL 20 MG CAPSULE PO SCH (09:00)
[2017-10-16] MEDS ORDERED: clonazePAM 1 MG TABLET PO SCH (09:00)
[2017-10-16] MEDS ORDERED: TAMSULOSIN 0.4 MG CAP.ER.24H. PO SCH (09:00)
[2017-10-16] MEDS ORDERED: LOSARTAN POTASSIUM 50 MG TABLET. PO SCH (09:00)
[2017-10-16 11:00] VITALS: BP 134/79
--- NOTE | 2017-10-16 13:12 | PDOC ---
PROGRESS NOTES Chief Complaint Chief Complaint CVA High Cholesterol Hypertension Gout History of Present Illness History of Present Illness Pt admits to three previous events of loosing consciousness. They have all been during [facility] near 8am. Vitals Vitals Vital Signs Date Time Temp Pulse Resp B/P (MAP) Pulse Ox O2 Delivery O2 Flow Rate FiO2 10/16/17 11:00 97.4 62 18 134/79 (97) 95 Room Air 97.4 Physical Exam General: Alert, Cooperative, No acute distress Heart: Other (Orthostatic testing was negative) Lungs: Other Labs LABS Laboratory Tests Test 10/15/17 17:25 10/16/17 01:40 Troponin I Quantitative < 0.017 ng/mL (0.000-0.055) < 0.017 ng/mL (0.000-0.055) White Blood Count 6.3 x10^3/uL (4.0-11.0) Red Blood Count 5.16 x10^6/uL (4.30-5.70) Hemoglobin 15.1 g/dL (13.0-17.5) Hematocrit 45.6 % (39.0-53.0) Mean Corpuscular Volume 88 fL (79-100) Mean Corpuscular Hemoglobin 29 pg (25-35) Mean Corpuscular Hemoglobin Concent 33 g/dL (31-37) Red Cell Distribution Width 14.3 % (11.5-14.5) Platelet Count 172 x10^3/uL (140-400) Neutrophils (%) (Auto) 70 % (31-73) Lymphocytes (%) (Auto) 22 % (24-48) Monocytes (%) (Auto) 8 % (0-9) Eosinophils (%) (Auto) 1 % (0-3) Basophils (%) (Auto) 0 % (0-3) Neutrophils # (Auto) 4.4 x10^3uL (1.8-7.7) Lymphocytes # (Auto) 1.4 x10^3/uL (1.0-4.8) Monocytes # (Auto) 0.5 x10^3/uL (0.0-1.1) Eosinophils # (Auto) 0.0 x10^3/uL (0.0-0.7) Basophils # (Auto) 0.0 x10^3/uL (0.0-0.2) Sodium Level 137 mmol/L (136-145) Potassium Level 3.7 mmol/L (3.5-5.1) Chloride Level 103 mmol/L (98-107) Carbon Dioxide Level 30 mmol/L (21-32) Anion Gap 4 (6-14) Blood Urea Nitrogen 14 mg/dL (8-26) Creatinine 0.7 mg/dL (0.7-1.3) Estimated GFR (Cockcroft-Gault) 109.1 Glucose Level 104 mg/dL (70-99) Calcium Level 9.3 mg/dL (8.5-10.1) Assessment and Plan Assessmemt and Plan Problems Medical Problems: (1) Syncope Status: Acute ASSESSMENT CVA High Cholesterol Hypertension Gout PLAN Continue cardiac monitoring Discussed with RN Await cardiac input Consult PT/OT Continue home meds Possible discharge today if ok with cardiology Problems: Comment Review of Relevant I have reviewed the following items [place] (where applicable) has been applied. Labs Laboratory Tests Test 10/15/17 09:30 10/15/17 11:10 10/15/17 17:25 10/16/17 01:40 White Blood Count 6.6 x10^3/uL (4.0-11.0) 6.3 x10^3/uL (4.0-11.0) Red Blood Count 5.68 x10^6/uL (4.30-5.70) 5.16 x10^6/uL (4.30-5.70) Hemoglobin 16.8 g/dL (13.0-17.5) 15.1 g/dL (13.0-17.5) Hematocrit 50.5 % (39.0-53.0) 45.6 % (39.0-53.0) Mean Corpuscular Volume 89 fL (79-100) 88 fL (79-100) Mean Corpuscular Hemoglobin 30 pg (25-35) 29 pg (25-35) Mean Corpuscular Hemoglobin Concent 33 g/dL (31-37) 33 g/dL (31-37) Red Cell Distribution Width 14.4 % (11.5-14.5) 14.3 % (11.5-14.5) Platelet Count 197 x10^3/uL (140-400) 172 x10^3/uL (140-400) Neutrophils (%) (Auto) 80 % (31-73) 70 % (31-73) Lymphocytes (%) (Auto) 12 % (24-48) 22 % (24-48) Monocytes (%) (Auto) 7 % (0-9) 8 % (0-9) Eosinophils (%) (Auto) 0 % (0-3) 1 % (0-3) Basophils (%) (Auto) 0 % (0-3) 0 % (0-3) Neutrophils # (Auto) 5.3 x10^3uL (1.8-7.7) 4.4 x10^3uL (1.8-7.7) Lymphocytes # (Auto) 0.8 x10^3/uL (1.0-4.8) 1.4 x10^3/uL (1.0-4.8) Monocytes # (Auto) 0.5 x10^3/uL (0.0-1.1) 0.5 x10^3/uL (0.0-1.1) Eosinophils # (Auto) 0.0 x10^3/uL (0.0-0.7) 0.0 x10^3/uL (0.0-0.7) Basophils # (Auto) 0.0 x10^3/uL (0.0-0.2) 0.0 x10^3/uL (0.0-0.2) Prothrombin Time 12.9 SEC (11.7-14.0) Prothromb Time International Ratio 1.0 (0.8-1.1) Activated Partial Thromboplast Time 28 SEC (24-38) Sodium Level 138 mmol/L (136-145) 137 mmol/L (136-145) Potassium Level 3.7 mmol/L (3.5-5.1) 3.7 mmol/L (3.5-5.1) Chloride Level 101 mmol/L (98-107) 103 mmol/L (98-107) Carbon Dioxide Level 32 mmol/L (21-32) 30 mmol/L (21-32) Anion Gap 5 (6-14) 4 (6-14) Blood Urea Nitrogen 15 mg/dL (8-26) 14 mg/dL (8-26) Creatinine 1.1 mg/dL (0.7-1.3) 0.7 mg/dL (0.7-1.3) Estimated GFR (Cockcroft-Gault) 64.7 109.1 BUN/Creatinine Ratio 14 (6-20) Glucose Level 103 mg/dL (70-99) 104 mg/dL (70-99) Calcium Level 9.6 mg/dL (8.5-10.1) 9.3 mg/dL (8.5-10.1) Magnesium Level 1.9 mg/dL (1.8-2.4) Total Bilirubin 0.9 mg/dL (0.2-1.0) Aspartate Amino Transf (AST/SGOT) 27 U/L (15-37) Alanine Aminotransferase (ALT/SGPT) 42 U/L (16-63) Alkaline Phosphatase 96 U/L (46-116) Troponin I Quantitative < 0.017 ng/mL (0.000-0.055) < 0.017 ng/mL (0.000-0.055) < 0.017 ng/mL (0.000-0.055) Total Protein 7.0 g/dL (6.4-8.2) Albumin 4.3 g/dL (3.4-5.0) Albumin/Globulin Ratio 1.6 (1.0-1.7) Urine Collection Type Unknown Urine Color Nancy Urine Clarity Cloudy Urine pH 7.0 Urine Specific [place] 1.020 Urine Protein 30 mg/dL (NEG-TRACE) Urine Glucose (UA) Negative mg/dL (NEG) Urine Ketones (Stick) Trace mg/dL (NEG) Urine Blood Negative (NEG) Urine Nitrite Negative (NEG) Urine Bilirubin Small (NEG) Urine Urobilinogen Dipstick 1.0 mg/dL (0.2 mg/dL) Urine Leukocyte Esterase Small (NEG) Urine RBC 0 /HPF (0-2) Urine WBC 1-4 /HPF (0-4) Urine Squamous Epithelial Cells Few /LPF Urine Bacteria 0 /HPF (0-FEW) Urine Hyaline Casts Moderate /HPF Urine Mucus Slight /LPF Urine Opiates Screen Neg (NEG) Urine Methadone Screen Neg (NEG) Urine Barbiturates Neg (NEG) Urine Phencyclidine Screen Neg (NEG) Urine Amphetamine/Methamphetamine Neg (NEG) Urine Benzodiazepines Screen Neg (NEG) Urine Cocaine Screen Neg (NEG) Urine Cannabinoids Screen Neg (NEG) Urine Ethyl Alcohol Neg (NEG) Laboratory Tests Test 10/15/17 17:25 10/16/17 01:40 Troponin I Quantitative < 0.017 ng/mL (0.000-0.055) < 0.017 ng/mL (0.000-0.055) White Blood Count 6.3 x10^3/uL (4.0-11.0) Red Blood Count 5.16 x10^6/uL (4.30-5.70) Hemoglobin 15.1 g/dL (13.0-17.5) Hematocrit 45.6 % (39.0-53.0) Mean Corpuscular Volume 88 fL (79-100) Mean Corpuscular Hemoglobin 29 pg (25-35) Mean Corpuscular Hemoglobin Concent 33 g/dL (31-37) Red Cell Distribution Width 14.3 % (11.5-14.5) Platelet Count 172 x10^3/uL (140-400) Neutrophils (%) (Auto) 70 % (31-73) Lymphocytes (%) (Auto) 22 % (24-48) Monocytes (%) (Auto) 8 % (0-9) Eosinophils (%) (Auto) 1 % (0-3) Basophils (%) (Auto) 0 % (0-3) Neutrophils # (Auto) 4.4 x10^3uL (1.8-7.7) Lymphocytes # (Auto) 1.4 x10^3/uL (1.0-4.8) Monocytes # (Auto) 0.5 x10^3/uL (0.0-1.1) Eosinophils # (Auto) 0.0 x10^3/uL (0.0-0.7) Basophils # (Auto) 0.0 x10^3/uL (0.0-0.2) Sodium Level 137 mmol/L (136-145) Potassium Level 3.7 mmol/L (3.5-5.1) Chloride Level 103 mmol/L (98-107) Carbon Dioxide Level 30 mmol/L (21-32) Anion Gap 4 (6-14) Blood Urea Nitrogen 14 mg/dL (8-26) Creatinine 0.7 mg/dL (0.7-1.3) Estimated GFR (Cockcroft-Gault) 109.1 Glucose Level 104 mg/dL (70-99) Calcium Level 9.3 mg/dL (8.5-10.1) Microbiology 10/15/17 Urine Culture - Preliminary, Resulted 10/15/17 Urine Culture Result 1 (ONOFRE) - Preliminary, Resulted Medications Current Medications Ondansetron HCl (Zofran) 4 mg PRN Q8HRS PRN IV NAUSEA/VOMITING; Start at 13:45; Stop 10/16/17 at 13:44 Acetaminophen (Tylenol) 650 mg PRN Q4HRS PRN PO FEVER; Start 10/15/17 at 13:45 ; Stop 10/16/17 at 13:44 Allopurinol (Zyloprim) 300 mg DAILY PO Last administered on 10/16/17 08:15; Start 10/16/17 at 09:00 Clonazepam (KlonoPIN) 1 mg DAILY PO Last administered on 10/16/17 08:16; Start 10/16/17 at 09:00 Clopidogrel Bisulfate (Plavix) 75 mg DAILY07 PO Last administered on 08:15; Start 10/16/17 at 07:00 Losartan Potassium (Cozaar) 50 mg DAILY PO Last administered on 10/16/17 08: 16; Start 10/16/17 at 09:00 Tamsulosin HCl (Flomax) 0.4 mg DAILY PO Last administered on 10/16/17 08:16; Start 10/16/17 at 09:00 Fluoxetine HCl (PROzac) 40 mg DAILY PO Last administered on 10/16/17 08:15; Start 10/16/17 at 09:00 Pantoprazole Sodium (Protonix) 40 mg DAILYAC PO Last administered on 08:16; Start 10/16/17 at 07:30 Simvastatin (Zocor) 80 mg QHS PO Last administered on 10/15/17 21:14; Start 10/15/17 at 21:00 Active Scripts Active Reported Prevacid (Lansoprazole) 15 Mg Capsule.dr 1 Cap PO DAILY Clonazepam 1 Mg Tablet 1 Mg PO DAILY Clopidogrel (Clopidogrel Bisulfate) 75 Mg Tablet 75 Mg PO DAILY Tamsulosin Hcl 0.4 Mg Cap.er.24h 0.4 Mg PO DAILY Simvastatin 80 Mg Tablet 80 Mg PO DAILY Fluoxetine Hcl 40 Mg Capsule 40 Mg PO DAILY Carafate (Sucralfate) 1 Gm Tablet 1 Gm PO BID Losartan Potassium 50 Mg Tablet 50 Mg PO DAILY Allopurinol 300 Mg Tablet 300 Mg PO DAILY Vitals/I & O Vital Sign - Last 24 Hours 10/15/17 10/15/17 10/15/17 10/15/17 13:30 13:30 15:00 19:55 Temp 98.0 98.0 98.1 97.7 98.0 98.0 98.1 97.7 Pulse 64 68 69 65 Resp 20 20 B/P (MAP) 160/84 (109) 160/84 (109) 148/82 (104) 128/71 (90) Pulse Ox 97 97 96 97 O2 Delivery Room Air Room Air Room Air Room Air 10/15/17 10/15/17 10/16/17 10/16/17 20:00 22:19 03:34 07:00 Temp 97.9 98.2 97.7 97.9 98.2 97.7 Pulse 62 68 65 Resp 18 18 19 B/P (MAP) 116/75 (89) 132/79 (96) 142/88 (106) Pulse Ox 95 96 94 O2 Delivery Room Air Room Air Room Air Room Air 10/16/17 10/16/17 10/16/17 08:00 08:16 11:00 Temp 97.4 97.4 Pulse 65 62 Resp 18 B/P (MAP) 134/79 (97) Pulse Ox 95 O2 Delivery Room Air Room Air Intake and Output 10/15/17 10/15/17 10/16/17 15:00 23:00 07:00 Intake Total 1075 ml 880 ml Output Total 450 ml 200 ml Balance 625 ml 680 ml CHAU CARTER III DO Oct 16, 2017 13:12
== END 2017-10-16 13:25 | disposition home or self-care (01) | DRG 66 ==
LOC: ER 08:55 → 2 NORTH 12:12
PROVIDERS: ADMIT Internal Medicine Hematology & Oncology; ATTEND Internal Medicine Hematology & Oncology
DX: I63.9 Cerebral infarction, unspecified (principal); G90.8 Other disorders of autonomic nervous system; E78.5 Hyperlipidemia, unspecified; I10 Essential (primary) hypertension; K21.9 Gastro-esophageal reflux disease without esophagitis; S80.212A Abrasion, left knee, initial encounter; S60.312A Abrasion of left thumb, initial encounter; X58.XXXA Exposure to other specified factors, initial encounter; M10.9 Gout, unspecified; Z82.49 Family history of ischemic heart disease and other diseases of the circulatory system; Z86.73 Personal history of transient ischemic attack (TIA), and cerebral infarction without residual deficits; Z95.0 Presence of cardiac pacemaker; Z98.49 Cataract extraction status, unspecified eye; Y93.89 Activity, other specified; Y92.89 Other specified places as the place of occurrence of the external cause; Y99.8 Other external cause status
CPT/HCPCS: 36415; 70450; 71010; 80048; 80053; 80307; 81001; 83735; 84484; 85025; 85610; 85730; 87086; 93005; 99285-25; G0479

== ENCOUNTER → 2017-10-30 | Outpatient (CLI) | payer MEDICARE ==
[2017-10-16 11:00] VITALS: BP 134/79
[~2017-10-30] MED LIST changes: +REGADENOSON 0.4 MG/5 ML DISP.SYRIN. IV ONE
--- NOTE | 2017-10-30 12:39 | RAD ---
APPROVED REPORT Test Type: Pharmacological Stress Nurse/Tech: Shanna Michael R.N. Test Indications: syncope Cardiac History: Family history, Hypertension, pacemaker Medications: See Electronic Medical Record Medical History: See Electronic Medical Record Resting ECG: NSR Resting Heart Rate: 68 bpm Resting Blood Pressure: 143/76mmHg Pretest Chest Pain: No chest pain Nurse/Tech Notes S1S2, lungs sound clear Consent: The procedure was explained to the patient in lay terms. Informed consent was witnessed. Robert eout was entered into [employer]. History and Stress Test performed by Shanna Michael R.N. Pharm. Details Pharmacologic stress testing was performed using 0.4mg per 5ml of regadenoson given intravenously ove r 7-10 seconds. Stress Symptoms No chest pain or symptoms. POST EXERCISE Reason for Termination: Infusion complete Max HR: 90 bpm Max Blood Pressure: 152/66mmHg Blood Pressure response to exercise: Normal blood pressure response during stress. Chest Pain: No. Arrhythmia: No. ST Change: No. INTERPRETATION Stress EKG Conclusion: Baseline EKG showed sinus rhythm. No ischemic changes at peak stress. No arr hythmias. Imaging Protocol IMAGE PROTOCOL: Rest Tc-99m/stress Tc-99m 1 day Rest: Stress: Viability: Radiopharm.Tc99m [id number] Sestamibi Dose10.6mCi 32.4mCi Duration 15min. 10min. Img Date 10/30/2017 10/30/2017 Inj-Img [id number]. 60min. Rest Admin Site:IV - Right AntecubitalAdministrator:RT Obey (R)(N) Stress Admin Site: IV - Right AntecubitalAdministrator: COLBY Nunez STRESS DATA End Diast. Vol.120.0mlAv. Heart Rate69.0bpm End Syst. Vol.54.0mlCO Index BSA0.0L/min Myocardial Mrfm231.0gEject. Feyrjolv58.0% Stress Rates Pk. Fill Rate1.91EDV/secLVtime Pk. Fill 247.90msec Pk. Empty Rate3.32ESV/secLVtime Pk. Fcflh674.46msec 1/3 Pk. Fill0.58EDV/sec Stress Scores Regional WT2.00Summed WT23.00 Regional WM0.00Summed WM7.00 LV Perfusion Scintigraphic images showed fixed inferoapical perfusion defect most probably diaphragmatic attenuati on artifact based on normal regional wall motion. No other fixed or reversible defects seen. Wall Motion Normal left ventricle systolic function with ejection fraction calculated at 55%. LV Perf. Quant 17 Seg. SSS11.00 17 Seg. SRS12.00 17 Seg. SDS1.00 Stress Defect Extent (% LAD)13.80Rest Defect Extent (% LAD)20.60Rev. Defect Extent (% LAD)0.00 Stress Defect Extent (% LCX) 28.80Rest Defect Extent (% LCX)31.30Rev. Defect Extent (% LCX)0.00 Stress Defect Extent (% RCA)7.80Rest Defect Extent (% RCA)11.10Rev. Defect Extent (% RCA)0.00 Stress Defect Extent (% DAMON)17.60Rest Defect Extent (% DAMON)22.00Rev. Defect Extent (% DAMON)0.00 Conclusion 1. Regadenoson cardioisotope stress test showed diaphragmatic attenuation artifact without any defini te evidence of ischemia or infarct. 2. Normal left ventricular systolic function with ejection fraction calculated at 55%. 3. Low risk for cardiac events.
--- NOTE | 2017-10-30 13:14 | RAD ---
APPROVED REPORT Patient Location: OUT-PATIENT Laterality:Bilateral Indications Syncope Doppler Spectral Velocity Analysis Right Left pCCA 66/16 cm/spCCA 82/20 cm/s mCCA 71/15 cm/smCCA 77/18 cm/s dCCA 72/16 cm/sdCCA 71/18 cm/s Bulb 69/19 cm/sBulb 162/38 cm/s ECA 96/ cm/sECA 172/ cm/s pICA 111/38 cm/spICA 123/35 cm/s Nancy 122/42 cm/smICA 109/34 cm/s dICA 63/17 cm/sdICA 81/29 cm/s Vert. 23/ cm/sVert. 34/ cm/s Subcl. 54/ cm/sSubcl. 83/ cm/s ICA/CCA 1.69ICA/CCA 1.50 Findings Grayscale images of the bilateral common carotid arteries reveal moderate atherosclerotic plaque on t he left greater than the right involving the carotid bulbs. Whether the plaque extends into the proxi mal internal carotid artery is unclear. Spectral waveforms and color Doppler in the proximal mid and distal internal carotid artery on the ri ght side suggestive 0 to less than 50% stenosis. The external carotid artery on the right side is pat ent. The vertebral artery velocity is antegrade and within normal limits. The ICA to CCA ratios are a lso within normal limits. On the left the proximal mid and distal internal carotid arteries are suggestive of approximately 50% stenosis. Spectral waveforms and color Doppler are unremarkable. The external carotid artery on the left side appears to demonstrate greater than 50% stenosis at a velocity 172 cm/s. Again ICA to CCA r atios are grossly unremarkable. The vertebral velocity is antegrade. Critical Notification Critical Value: No <Conclusion> 1. Mild to moderate nonobstructive atherosclerotic plaque involving the bilateral carotid bulbs. 2. Mild to moderate bilateral internal carotid artery disease.
== END | disposition home or self-care (01) ==
LOC: NM 08:45
PROVIDERS: ATTEND Internal Medicine Cardiovascular Disease
DX: I65.23 Occlusion and stenosis of bilateral carotid arteries (principal); I49.5 Sick sinus syndrome; R55 Syncope and collapse
CPT/HCPCS: 78452; 93017; 93880; 96374; 96375; 96376; A9500; J2785

== ENCOUNTER 2019-02-03 09:08 | Inpatient (IN) | payer MEDICARE ==
[~2019-02-03] VITALS: Ht 182.9 cm; Wt 91.2 kg
[~2019-02-03 09:08] MED LIST changes: +CLON1TAB11 PO; -CLON1TAB3 PO; +LOSA-73 PO; -LOSA50TA6 PO; +METO-239 PO; -REGADENOSON 0.4 MG/5 ML DISP.SYRIN. IV ONE; +SIMV80TA17 PO; -SIMV80TA3 PO
[2019-02-03] MEDS ORDERED: IV NORMAL SALINE 1000ML BAG 1,000 ML IV ONE (09:15)
--- NOTE | 2019-02-03 09:15 | PHYS DOC ---
Past Medical History Past Medical History: Anxiety, Depression, GERD, Hypertension, Stroke Additional Past Medical Histor: GOUT, BPH; ulcers Past Surgical History: Pacemaker Additional Past Surgical Histo: cataract surgery, PACEMAKER; hemorrhoid Alcohol Use: None Drug Use: None Adult General HPI HPI 78-year-old male presents to ER via EMS from [facility] after her multiple syncope episodes while sitting in a pew. Per EMS patient slumped over while sitting and woke up complaining of left-sided abdominal pain and vomited what appeared to be blood. Following vomiting episode patient had another syncope episode. EMS deny patient falling out of the pew. EMS report pt was unresponsive during initial exam and during IV start they report pt had no response. On arrival pt has eyes closed- did open on voice command and was A&Ox3. Slow to respond to questions c/o lt side abd pain. He is denying any CP/SOA. He is denying WILKES, dizziness, or vision changes. He reports he is feeling fatigued. Review of Systems Review of Systems Constitutional: Denies fever or chills. Reports generalized fatigue Eyes: Denies change in visual acuity, redness, or eye pain [] HENT: Denies nasal congestion or sore throat [] Respiratory: Denies cough or shortness of breath [] Cardiovascular: Denies CP/palpitations GI: Denies bloody stools or diarrhea. Per EMS pt had episode of vomiting en route which appeared bloody. Reports lt side abd pain : Denies dysuria or hematuria [] Musculoskeletal: Denies back pain or joint pain [] Integument: Denies rash or skin lesions [] Neurologic: Denies headache, focal weakness or sensory changes Endocrine: Denies polyuria or polydipsia [] All other systems were reviewed and found to be within normal limits, except as documented in this note. Current Medications Current Medications Current Medications Medications (Trade) Dose Ordered Sig/[place] Start Time Stop Time Status Last Admin Dose Admin Info (CONTRAST GIVEN -- Rx MONITORING) 1 each PRN DAILY PRN 02/03/19 10:15 02/05/19 10:14 Cancel Iohexol (Omnipaque 300 Mg/ml) 60 ml 1X ONCE 02/03/19 10:15 02/03/19 10:16 DC 02/03/19 10:14 60 ML Sodium Chloride 1,000 ml @ 1,000 mls/hr 1X ONCE 02/03/19 09:15 02/03/19 10:14 DC 02/03/19 09:15 1,000 MLS/HR Allergies Allergies Allergies Coded Allergies Type Severity Reaction Last Updated Verified No Known Drug Allergies 08/20/16 No Physical Exam Physical Exam Constitutional: Well developed, well nourished, no acute distress, non-toxic appearance. Fatigued appearance HENT: Normocephalic, atraumatic, bilateral ears normal, mucous membranes pink/ dry, no oral exudates, nose normal. [] Eyes: 3mm PERRLA, EOMI- no eye pain with movements, no nystagmus, conjunctiva normal, no discharge. [] Neck: Normal range of motion, no tenderness, supple, no stridor. Trachea midline Cardiovascular: Heart rate regular rhythm, no murmur [] Lungs & Thorax: Bilateral breath sounds clear to auscultation. Resp. equal/ nonlabored Abdomen: Bowel sounds normal, soft, tender on palp. lt side abd- diffuse in upper/lower quadrants- no distention/rigidity, no masses, no pulsatile masses. [ ] Skin: Warm, dry, no erythema, no rash. [] Back: No tenderness, no CVA tenderness. [] Extremities: No tenderness, no cyanosis, no clubbing, ROM intact, no edema. [] Neurologic: Alert and oriented X 3- slow responses to questions- answering questions appropr, normal motor function, normal sensory function, no focal deficits noted. [] Psychologic: Affect normal, judgement normal, mood normal. [] Current Patient Data Vital Signs Vital Signs Date Time Temp Pulse Resp B/P (MAP) Pulse Ox O2 Delivery O2 Flow Rate FiO2 02/03/19 10:00 60 16 142/68 (92) 95 Room Air 02/03/19 09:08 97.4 97.4 Lab Values Laboratory Tests Test 02/03/19 09:15 White Blood Count 7.5 x10^3/uL (4.0-11.0) Red Blood Count 5.32 x10^6/uL (4.30-5.70) Hemoglobin 15.5 g/dL (13.0-17.5) Hematocrit 47.2 % (39.0-53.0) Mean Corpuscular Volume 89 fL (79-100) Mean Corpuscular Hemoglobin 29 pg (25-35) Mean Corpuscular Hemoglobin Concent 33 g/dL (31-37) Red Cell Distribution Width 14.9 % (11.5-14.5) H Platelet Count 200 x10^3/uL (140-400) Neutrophils (%) (Auto) 70 % (31-73) Lymphocytes (%) (Auto) 20 % (24-48) L Monocytes (%) (Auto) 9 % (0-9) Eosinophils (%) (Auto) 1 % (0-3) Basophils (%) (Auto) 0 % (0-3) Neutrophils # (Auto) 5.2 x10^3uL (1.8-7.7) Lymphocytes # (Auto) 1.5 x10^3/uL (1.0-4.8) Monocytes # (Auto) 0.7 x10^3/uL (0.0-1.1) Eosinophils # (Auto) 0.1 x10^3/uL (0.0-0.7) Basophils # (Auto) 0.0 x10^3/uL (0.0-0.2) Prothrombin Time 14.9 SEC (11.7-14.0) H Prothrombin Time INR 1.2 (0.8-1.1) H PTT 28 SEC (24-38) Sodium Level 142 mmol/L (136-145) Potassium Level 4.1 mmol/L (3.5-5.1) Chloride Level 102 mmol/L (98-107) Carbon Dioxide Level 31 mmol/L (21-32) Anion Gap 9 (6-14) Blood Urea Nitrogen 16 mg/dL (8-26) Creatinine 1.3 mg/dL (0.7-1.3) Estimated GFR (Cockcroft-Gault) 53.3 BUN/Creatinine Ratio 12 (6-20) Glucose Level 108 mg/dL (70-99) H Lactic Acid Level 1.5 mmol/L (0.4-2.0) Calcium Level 9.7 mg/dL (8.5-10.1) Magnesium Level 2.2 mg/dL (1.8-2.4) Total Bilirubin 1.2 mg/dL (0.2-1.0) H Aspartate Amino Transferase (AST) 51 U/L (15-37) H Alanine Aminotransferase (ALT) 73 U/L (16-63) H Alkaline Phosphatase 96 U/L (46-116) Troponin I Quantitative < 0.017 ng/mL (0.000-0.055) Total Protein 6.9 g/dL (6.4-8.2) Albumin 4.2 g/dL (3.4-5.0) Albumin/Globulin Ratio 1.6 (1.0-1.7) Lipase 189 U/L (73-393) Ethyl Alcohol Level < 10 mg/dL (0-10) Laboratory Tests 02/03/19 09:15 Laboratory Tests 02/03/19 09:15 EKG EKG EKG obtained 02/03/19 at [address] Carlos Paced rhythm Rate 64 No STEMI Radiology/Procedures Radiology/Procedures PROCEDURE: CHEST AP ONLY AP chest. HISTORY: Syncope, vomiting blood AP view was taken of the chest. Pacemaker on the left is unchanged. There is linear scarring in the left lung base without change. Heart is normal in size without heart failure. There is no effusion. There are no confluent infiltrates. IMPRESSION: 1. No acute infiltrates. Electronically signed by: Gonzalo Bustillo MD (02/03/2019 9:41 AM) [facility] DICTATED and SIGNED BY: GONZALO BUSTILLO MD DATE: 02/03/19 0993 PROCEDURE: CT HEAD WO CONTRAST CT brain without contrast. HISTORY: Syncope, left-sided abdominal pain, vomiting blood CT scan of brain was done without contrast. There is no intracranial hemorrhage or subdural hematoma. Ventricles are normal in size. There is no mass or shift of the midline. Sinuses are clear. There is decreased density in the periventricular white matter from chronic microvascular changes. An acute CVA is not identified. IMPRESSION: 1. Chronic microvascular changes in the white matter. 2. No intracranial hemorrhage or acute CVA noted. Electronically signed by: Gonzalo Bustillo MD (02/03/2019 10:09 AM) [facility] DICTATED and SIGNED BY: GONZALO BUSTILLO MD DATE: 02/03/19 1009 PROCEDURE: CT ABD PELV W/ IV CONTRST ONLY CT abdomen and pelvis with contrast. HISTORY: Left-sided abdominal pain, vomiting blood CT scan of the abdomen and pelvis was done using 60 mL Omnipaque 300 contrast. Lung bases are clear. There is mild atelectasis in the lung bases. There is no effusion. A liver lesion is not identified. There is no calcified gallstone. Spleen and adrenal glands are normal. Pancreas is normal. There are bilateral renal cysts. There is no renal mass or hydronephrosis. Stomach is mildly distended. There is no obvious gastric mass. There is no bowel obstruction or ascites. Appendix is normal. There is facet arthritis and degenerative disc disease in the lower lumbar spine. There is slight degenerative spondylolisthesis at L4-5. There is a small aortic aneurysm measuring 3.4 cm. IMPRESSION: 1. Multiple bilateral renal cysts. 2. Degenerative change in the lumbar spine. 3. Small abdominal aortic aneurysm. 4. Mild distention of the stomach. 5. No abdominal or pelvic mass or other acute finding noted. PQRS Compliance Statement: One or more of the following individualized dose reduction techniques were utilized for this examination: 1. Automated exposure control 2. Adjustment of the mA and/or kV according to patient size 3. Use of iterative reconstruction technique Electronically signed by: Gonzalo Bustillo MD (02/03/2019 11:14 AM) [facility] DICTATED and SIGNED BY: GONZALO BUSTILLO MD DATE: 02/03/19 1114 Course & Med Decision Making Course & Med Decision Making Pertinent Labs and Imaging studies reviewed. (See chart for details) 0955: Pt's Tania arrived at bedside and provided additional information- she reports patient has had 4 other episodes where he has syncope during spiritism with her reporting episodes typically happen when patient is singing. She reports patient had eaten breakfast this morning and had been acting appropriate with no complaints of medical symptoms. She reports during singing while at spiritism he slumped over while sitting on the by mouth she denies any falls. She reports patient woke up and had a few more episodes where he went unresponsive. She reports patient had not vomited while at the spiritism so the vomiting episode must have happened during transport by EMS. She reports this episode is different as patient appears in a fall and slow to respond. She reports the other episodes per the time she arrived to the bedside in the ER patient was alert and back to baseline for his normal mental status. Patient is A&Ox3 with slow responses to questions and slow purposeful movements. No facial droop/drifts in extremities. He is answering questions appropriate with full range of motion of all extremities. 1024: Spoke with Dr. Osborne, hospitalist and discussed pt's case and plan of care- will admit to their services for further care. Will consult neurology/ cardiology with admit orders and admit to Med/Tele for further monitoring. Pt's H&H was 15.5/47.2 he did receive IV flds while in the ER. WBCs NL at 7.5 with NL lactic acid of 1.5. EKG with no acute ST elevation/STEMI and troponin < 0.017. Head CT and abd pelvis CT were obtained- results discussed with Dr. Osborne. Test results and admit plan was discussed with pt and his . Dragon Disclaimer Dragon Disclaimer This electronic medical record was generated, in whole or in part, using a voice recognition dictation system. Departure Departure Impression: Primary Impression: Syncope Disposition: ADMITTED INPATIENT Admitting Physician: Derick Osborne Condition: STABLE Referrals: BATOOL KIMBLE (PCP) NIHSS Stroke Scale NIH Stroke Scale: NIH Stroke Scale Response (Comments) Value Level of Consciousness: 0 Alert/Responsive 0 LOC Questions: 0 Answers both correctly 0 LOC Commands: 0 Performs both tasks 0 Best Gaze: 0 Normal 0 Visual: 0 No visual loss 0 Facial Palsy: 0 Normal, symmetrical 0 Motor - Left Arm 0 No drift 0 Motor - Right Arm 0 No drift 0 Motor - Left Leg 0 No drift 0 Motor: Right Leg 0 No drift 0 Limb Ataxia: 0 Absent 0 Sensory: 0 No loss 0 Best Language: 0 Normal 0 Dysathria: 0 Normal 0 Extinction and Inattention: 0 Normal (NIHSS obtained during initial exam) 0 Total 0 SHANDA COVARRUBIAS APRN Feb 03, 2019 09:15
[2019-02-03 09:42] LABS: CALCIUM 9.7 mg/dL (8.5-10.1); CREATININE 1.3 mg/dL (0.7-1.3); GFR 53.3; POTASSIUM 4.1 mmol/L (3.5-5.1)
[2019-02-03 09:43] LABS: BASO % 0 % (0-3); EOS # 0.1 x10^3/uL (0.0-0.7); EOS % 1 % (0-3); HEMATOCRIT 47.2 % (39.0-53.0); HEMOGLOBIN 15.5 g/dL (13.0-17.5); LYMPH # 1.5 x10^3/uL (1.0-4.8); LYMPH % 20 % (24-48); MEAN CORPUSCULAR HEMOGLOBIN 29 pg (25-35); MEAN CORPUSCULAR HGB CONC 33 g/dL (31-37); MEAN CORPUSCULAR VOLUME 89 fL (79-100); MONO # 0.7 x10^3/uL (0.0-1.1); MONO % 9 % (0-9); NEUT # 5.2 x10^3uL (1.8-7.7); NEUT % 70 % (31-73); PLATELET COUNT 200 x10^3/uL (140-400); RED BLOOD COUNT 5.32 x10^6/uL (4.30-5.70); RED CELL DISTRIBUTION WIDTH 14.9 % (11.5-14.5); WHITE BLOOD COUNT 7.5 x10^3/uL (4.0-11.0)
--- NOTE | 2019-02-03 09:44 | RAD ---
AP chest. HISTORY: Syncope, vomiting blood AP view was taken of the chest. Pacemaker on the left is unchanged. There is linear scarring in the left lung base without change. Heart is normal in size without heart failure. There is no effusion. There are no confluent infiltrates. IMPRESSION: 1. No acute infiltrates. Electronically signed by: Gonzalo Bustillo MD (02/03/2019 9:41 AM) [facility]
[2019-02-03 09:46] LABS: PROTHROMBIN TIME PATIENT 14.9 SEC (11.7-14.0)
[2019-02-03 09:48] LABS: ALBUMIN 4.2 g/dL (3.4-5.0); ALBUMIN/GLOBULIN RATIO 1.6 (1.0-1.7); MAGNESIUM 2.2 mg/dL (1.8-2.4); TOTAL BILIRUBIN 1.2 mg/dL (0.2-1.0); TOTAL PROTEIN 6.9 g/dL (6.4-8.2)
--- NOTE | 2019-02-03 10:12 | RAD ---
CT brain without contrast. HISTORY: Syncope, left-sided abdominal pain, vomiting blood CT scan of brain was done without contrast. There is no intracranial hemorrhage or subdural hematoma. Ventricles are normal in size. There is no mass or shift of the midline. Sinuses are clear. There is decreased density in the periventricular white matter from chronic microvascular changes. An acute CVA is not identified. IMPRESSION: 1. Chronic microvascular changes in the white matter. 2. No intracranial hemorrhage or acute CVA noted. Electronically signed by: Gonzalo Bustillo MD (02/03/2019 10:09 AM) [facility]
[2019-02-03] MEDS ORDERED: CONTRAST GIVEN. MC PRN (10:15)
[2019-02-03] MEDS ORDERED: IOHEXOL 300 MG/ML 100ML VIAL. IV ONE (10:15)
[2019-02-03 11:09] VITALS: BP 136/86
--- NOTE | 2019-02-03 11:10 | NUR ---
PATIENT BROUGHT TO ROOM 260 BY ED PERSONNEL PER WILLOW. PATIENT ORIENTED TO THIS RN, ROOM, AND CALL LIGHT. PATIENT STATES HE IS NOT DIZZY OR NAUSEOUS AT THIS TIME. PATIENTS VITALS OBTAINED AND PATIENT ASSESSED AT THIS TIME. PATIENT IS STABLE. PATIENT INFORMED TO NOT GET OUT OF BED WITHOUT HELP. BED ALARM IN PLACE. CALL LIGHT IN REACH. WILL CONTINUE TO MONITOR PATIENT.
--- NOTE | 2019-02-03 11:17 | RAD ---
CT abdomen and pelvis with contrast. HISTORY: Left-sided abdominal pain, vomiting blood CT scan of the abdomen and pelvis was done using 60 mL Omnipaque 300 contrast. Lung bases are clear. There is mild atelectasis in the lung bases. There is no effusion. A liver lesion is not identified. There is no calcified gallstone. Spleen and adrenal glands are normal. Pancreas is normal. There are bilateral renal cysts. There is no renal mass or hydronephrosis. Stomach is mildly distended. There is no obvious gastric mass. There is no bowel obstruction or ascites. Appendix is normal. There is facet arthritis and degenerative disc disease in the lower lumbar spine. There is slight degenerative spondylolisthesis at L4-5. There is a small aortic aneurysm measuring 3.4 cm. IMPRESSION: 1. Multiple bilateral renal cysts. 2. Degenerative change in the lumbar spine. 3. Small abdominal aortic aneurysm. 4. Mild distention of the stomach. 5. No abdominal or pelvic mass or other acute finding noted. PQRS Compliance Statement: One or more of the following individualized dose reduction techniques were utilized for this examination: 1. Automated exposure control 2. Adjustment of the mA and/or kV according to patient size 3. Use of iterative reconstruction technique Electronically signed by: Gonzalo Bustillo MD (02/03/2019 11:14 AM) [facility]
[2019-02-03] MEDS: FLUoxetine HCL 20 MG CAPSULE PO SCH (12:00)
[2019-02-03] MEDS: PANTOPRAZOLE 40 MG TABLET.DR. PO SCH (12:00)
[2019-02-03] MEDS: ALLOPURINOL 300 MG TABLET. PO SCH (12:00)
[2019-02-03] MEDS: clonazePAM 1 MG TABLET PO SCH (12:00)
[2019-02-03] MEDS: LOSARTAN POTASSIUM 50 MG TABLET. PO SCH (12:00)
[2019-02-03] MEDS: CLOPIDOGREL BISULFATE 75 MG TABLET PO SCH (12:00)
[2019-02-03] MEDS: METOPROLOL SUCC 24HR ER 25 MG TAB.ER.24H. PO SCH (12:00)
--- NOTE | 2019-02-03 12:37 | PDOC2 ---
CARDIOLOGY CONSULT NOTE CHEIF COMPLAINT: Passing out HPI: Pleasant 78-year-old man who is well-known to our office and previously admitted for recurrent syncope presents again with another episode of syncope. Each of his last for episodes appear to have occurred at [facility]. He is usually in his usual state of health and has a normal breakfast and subsequently at [facility] while singing or sitting there has a transient episode of syncope and this resolves within a few minutes. This time around it lasted several minutes and he had some confusion up to one hour. He denies any preceding auras or visual changes. He denies any chest pain or palpitations. He's otherwise been well functioning at home. He thinks he may have had some left lower quadrant abdominal pain prior to this episode. He was due to get a tilt table study to rule out any vasovagal etiologies. He does have a pacemaker which is been well-functioning upon recent evaluation. Upon initial arrival in the ER his blood pressure was in the 80s or 50s. Heart rate was not significantly elevated. PMHX: 1. CVA 2. Hypertension 3. Dyslipidemia 4. Sick sinus syndrome with syncope status post dual-chamber pacemaker. SOCHX: No alcohol, tobacco or illicit drug use. He is . FAMHX: Noncontributory. CURRENT MEDS: Current Medications Medications (Trade) Dose Ordered Sig/[place] Start Time Stop Time Status Last Admin Dose Admin Allopurinol (Zyloprim) 300 mg DAILY 02/03/19 12:00 Clonazepam (KlonoPIN) 1 mg DAILY 02/03/19 12:00 Clopidogrel Bisulfate (Plavix) 75 mg DAILY 02/03/19 12:00 Fluoxetine HCl (PROzac) 40 mg DAILY 02/03/19 12:00 Info (CONTRAST GIVEN -- Rx MONITORING) 1 each PRN DAILY PRN 02/03/19 10:15 02/05/19 10:14 Iohexol (Omnipaque 300 Mg/ml) 60 ml 1X ONCE 02/03/19 10:15 02/03/19 10:16 DC 02/03/19 10:14 60 ML Losartan Potassium (Cozaar) 25 mg DAILY 02/03/19 12:00 Metoprolol Succinate (Toprol Xl) 12.5 mg DAILY 02/03/19 12:00 Pantoprazole Sodium (Protonix) 40 mg DAILYAC 02/03/19 12:00 Simvastatin (Zocor) 40 mg QHS 02/03/19 21:00 Sodium Chloride 1,000 ml @ 1,000 mls/hr 1X ONCE 02/03/19 09:15 02/03/19 10:14 DC 02/03/19 09:15 1,000 MLS/HR Sucralfate (Carafate) 1 gm BIDAC 02/03/19 16:30 ALLERGIES: Allergies Coded Allergies Type Severity Reaction Last Updated Verified No Known Drug Allergies 08/20/16 No ROS: Negative for 10 out of 14 systems reviewed unless otherwise mentioned above in history of present illness. PHYSICAL EXAM: Vital Signs: Vital Signs Date Time Temp Pulse Resp B/P (MAP) Pulse Ox O2 Delivery O2 Flow Rate FiO2 02/03/19 11:09 97.3 76 18 136/86 (103) 95 Room Air 97.3 Physical Exam: On examination he appears alert and oriented. Head and neck exam is unremarkable. Cardiac regular rate and rhythm without any obvious murmurs rubs Normal lung sounds. No significant edema. No focal deficits. DIAGNOSTIC TESTING: Labs are grossly unremarkable. EKG does not demonstrate any significant abnormalities. ASSESSMENT: 1. Recurrent syncope of unclear etiology, this episode appears to be vagal in nature as this may have been preceded by a episode of left lower quadrant pain. The situational nature of his syncope is quite perplexing as he only usually passes out at [facility] so it is unclear if he is exposed to any noxious stimuli may precipitate this. PLAN: 1. Vasovagal syncope - unclear why it keeps happening at [facility]. Plan for tilt table testing in a.m. 2. Will obtain a device interrogation tomorrow morning and likely increase his base pacing rate to 70 bpm. Discussed with patient and family and nursing team. Nothing by mouth at midnight. CORAZON ABREU MD Feb 03, 2019 12:36
--- NOTE | 2019-02-03 13:01 | HP ---
ADMIT DATE: 02/03/2019 CHIEF COMPLAINT: Near syncope at [facility]. HISTORY OF PRESENT ILLNESS: The patient is a pleasant 78-year-old male who had a near syncopal episode at the [facility]w in [facility]. EMS was called. He was brought in by ambulance and while he was in the ambulance, he apparently vomited some blood. He woke up complaining of some left-sided abdominal pain and then had another syncopal episode. He rates his symptoms as 7/10, he has associated anxiety. I discussed the case with the ER physician. We are going to admit the patient and consult Neurology and Cardiology and GI. PAST MEDICAL HISTORY: Anxiety, depression, GERD, hypertension, gout, BPH, pacemaker, cataract surgery, hemorrhoids. ALLERGIES: None. FAMILY HISTORY: Hypertension. SOCIAL HISTORY: Does not drink, smoke or take drugs. He is retired from [employer] where he worked for 33 years. MEDICATIONS: Reviewed. He is on Flomax, Plavix, simvastatin, metoprolol, losartan, clonazepam, fluoxetine, Carafate, Prevacid and allopurinol. REVIEW OF SYSTEMS: GENERAL: No history of weight change, weakness or fevers. SKIN: No bruising, hair changes or rashes. EYES: No blurred, double or loss of vision. NOSE AND THROAT: No history of nosebleeds, hoarseness or sore throat. HEART: No history of palpitations, chest pain or shortness of breath on exertion. LUNGS: Denies cough, hemoptysis, wheezing or shortness of breath. GASTROINTESTINAL: Denies changes in appetite, nausea, vomiting, diarrhea or constipation. GENITOURINARY: No history of frequency, urgency, hesitancy or nocturia. NEUROLOGIC: Denies history of numbness, tingling, tremor or weakness. PSYCHIATRIC: No history of panic, anxiety or depression. ENDOCRINE: No history of heat or cold intolerance, polyuria or polydipsia. EXTREMITIES: Denies muscle weakness, joint pain, pain on walking or stiffness. PHYSICAL EXAMINATION: VITAL SIGNS: Temperature afebrile, pulse 98, respirations 18, blood pressure 144/90. GENERAL: He is alert, cooperative. HEART: Normal S1, S2. LUNGS: Clear. ABDOMEN: Soft. EXTREMITIES: No edema. SKIN: No rash. ENDOCRINE: No thyromegaly. LYMPHATICS: No cervical nodes. HEMATOPOIETIC: No bruising. PSYCHIATRIC: He is stable. LABORATORY DATA: Hematology is normal. Electrolytes are normal. Troponin is 0. INR is 1.2. Alcohol level is negative. CT of the abdomen, he has multiple renal cysts and some arthritis of the lumbar spine, a small abdominal aortic aneurysm, but no acute findings. Chest x-ray negative. CT of the head, chronic small vessel disease, but no acute changes. ASSESSMENT AND PLAN: Near syncopal episode with a possible gastrointestinal bleed where he vomited blood. The patient has been admitted. We will go ahead and resume his home meds, but I am going to hold his Flomax perhaps that could be causing some of these near syncopal episodes. Consult GI, consult Cardiology, consult Neurology, home meds, DVT prophylaxis, full code, IV fluids. CHAU CARTER DO DR: SHANTA/cynthia JOB#: [id number] / [id number]
--- NOTE | 2019-02-03 13:28 | NUR ---
VERBAL ORDERS PER DR ABREU TO HOLD PATIENTS BLOOD PRESSURE MEDICATIONS AT THIS TIME. WILL CONTINUE TO MONITOR PATIENT
[2019-02-03 13:36] LABS: BILIRUBIN,URINE NEGATIVE (NEG); CLARITY,URINE CLEAR; COLOR,URINE YELLOW; NITRITE,URINE NEGATIVE (NEG); PH,URINE 7.5; PROTEIN,URINE 30 mg/dL (NEG-TRACE)
[2019-02-03 13:41] LABS: AMPHETAMINE/METHAMPHETAMINE NEG (NEG); BARBITURATES NEG (NEG); BENZODIAZEPINES NEG (NEG); CANNABINOIDS NEG (NEG); COCAINE NEG (NEG); METHADONE NEG (NEG); OPIATES NEG (NEG); PHENCYCLIDINE NEG (NEG)
[2019-02-03 13:44] LABS: BACTERIA,URINE 0 /HPF (0-FEW); HYALINE CASTS, URINE FEW /HPF; RBC,URINE OCC /HPF (0-2); SQUAMOUS EPITHELIAL CELL,UR OCC /LPF; WBC,URINE RARE /HPF (0-4)
[2019-02-03 14:24] VITALS: BP 144/79
--- NOTE | 2019-02-03 15:12 | PDOC2 ---
NEUROLOGY CONSULT Date of Admission Date of Admission DATE: 02/03/19 TIME: 15:06 Reason for Consult Reason for Consult: Syncope Referring Physician Referring Physician: Dr. Osborne Source Source: Chart review, Patient History of Present Illness History of Present Illness The patient is a 78-year-old right-handed male who [facility]ed [facility] yesterday. He felt fine in the morning and at [facility] while sitting in the [place], knows some left upper quadrant gassy-type pain. This was exited quite severe. He did not feel right. He could not get his words out. Blood pressure was 80/50 in the field and remained low in the emergency department. The patient indeed was confused but once he hit the emergency department, he was fine. He's never had a stroke, seizure, or head injury. He did have a transient ischemic attack several years ago with right leg weakness. I saw him for his last episode of syncope in November. 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 He has a pacemaker. Past Medical History Cardiovascular: HTN, Syncope, Hyperlipidemia CENTRAL NERVOUS SYSTEM: TIA GI: GERD Psych: Anxiety, Depression Musculoskeletal: Osteoarthritis Renal/: Benign prostatic enlarg. Past Surgical History Past Surgical History: Pacemaker, Cataract Removal, Other (vasectomy) Family History Family History: CAD Social History Social History , retired, no alcohol or tobacco Current Medications Current Medications Current Medications Sodium Chloride 1,000 ml @ 1,000 mls/hr 1X ONCE IV Last administered on at 09:15; Start 02/03/19 at 09:15; Stop 02/03/19 at 10:14; Status DC Iohexol (Omnipaque 300 Mg/ml) 60 ml 1X ONCE IV Last administered on 02/03/19at 10:14; Start 02/03/19 at 10:15; Stop 02/03/19 at 10:16; Status DC Info (CONTRAST GIVEN -- Rx MONITORING) 1 each PRN DAILY PRN MC SEE COMMENTS; Start 02/03/19 at 10:15; Stop 02/05/19 at 10:14 Allopurinol (Zyloprim) 300 mg DAILY PO ; Start 02/03/19 at 12:00 Clonazepam (KlonoPIN) 1 mg DAILY PO ; Start 02/03/19 at 12:00 Clopidogrel Bisulfate (Plavix) 75 mg DAILY PO ; Start 02/03/19 at 12:00 Losartan Potassium (Cozaar) 25 mg DAILY PO ; Start 02/03/19 at 12:00 Metoprolol Succinate (Toprol Xl) 12.5 mg DAILY PO ; Start 02/03/19 at 12:00 Fluoxetine HCl (PROzac) 40 mg DAILY PO ; Start 02/03/19 at 12:00 Pantoprazole Sodium (Protonix) 40 mg DAILYAC PO ; Start 02/03/19 at 12:00 Simvastatin (Zocor) 40 mg QHS PO ; Start 02/03/19 at 21:00 Sucralfate (Carafate) 1 gm BIDAC PO ; Start 02/03/19 at 16:30 Active Scripts Active Metoprolol Succinate ( Xl ) (Metoprolol Succinate) 25 Mg Tab.er.24h 0.5 Tab PO DAILY Losartan Potassium 50 Mg Tablet 25 Mg PO DAILY 30 Days Reported Prevacid (Lansoprazole) 15 Mg Capsule.dr 1 Cap PO DAILY Clonazepam 1 Mg Tablet 1 Mg PO DAILY Clopidogrel (Clopidogrel Bisulfate) 75 Mg Tablet 75 Mg PO DAILY Tamsulosin Hcl 0.4 Mg Cap.er.24h 0.4 Mg PO DAILY Simvastatin 80 Mg Tablet 80 Mg PO DAILY Fluoxetine Hcl 40 Mg Capsule 40 Mg PO DAILY Carafate (Sucralfate) 1 Gm Tablet 1 Gm PO BID Allopurinol 300 Mg Tablet 300 Mg PO DAILY Allergies Allergies: Coded Allergies: No Known Drug Allergies (Unverified , 08/20/16) ROS Review of System Negative for fever, chills, weight loss, shortness of breath, chest pain, indigestion, hematochezia, melena, and dysuria. Full 14-point review of systems is negative. Physical Exam Physical Examination General: Well-developed, well-nourished white male in no acute distress HEENT: Normocephalic andatraumatic. Tympanic membranes clear.Temporal arteries pulsatile and nontender.Fundoscopic exam unremarkable Neck: Supple without bruit, no meningismus Musculoskeletal: Stability:see neurologic. Gait exam:see neurologic. Tone:see neurologic. Strength:see neurologic. Neurological: Mental Status:intact, orientation, memory, attention span/concentration, language, fund of knowledge normal. Cranial Nerves:Pupils equal and reactive to light, extraocular movements areintact, visual pandey are full to confrontation. Facial sensation is normal. There is no facial asymmetry. Vestibulo-ocular reflex is intact. Palate elevates and tongue protrudes in midline. All other cranial related problems are negative except as mentioned before.Reflexes:2+ and symmetric with flexor plantar responses. Motor:5/5 strength with normal tone and bulk. Coordination:Finger-nose finger and heel-to -johnson testing are normal. Rapid alternating movements and fine finger movements are intact. Gait:Normal, including tandem. Sensory:Normal pinprick, vibration , light touch, proprioception. Vitals VITALS Vital Signs Date Time Temp Pulse Resp B/P (MAP) Pulse Ox O2 Delivery O2 Flow Rate FiO2 02/03/19 14:24 98.1 80 18 144/79 (100) 96 Room Air 98.1 Labs Labs Laboratory Tests Test 02/03/19 09:15 02/03/19 13:20 White Blood Count 7.5 x10^3/uL (4.0-11.0) Red Blood Count 5.32 x10^6/uL (4.30-5.70) Hemoglobin 15.5 g/dL (13.0-17.5) Hematocrit 47.2 % (39.0-53.0) Mean Corpuscular Volume 89 fL (79-100) Mean Corpuscular Hemoglobin 29 pg (25-35) Mean Corpuscular Hemoglobin Concent 33 g/dL (31-37) Red Cell Distribution Width 14.9 % (11.5-14.5) Platelet Count 200 x10^3/uL (140-400) Neutrophils (%) (Auto) 70 % (31-73) Lymphocytes (%) (Auto) 20 % (24-48) Monocytes (%) (Auto) 9 % (0-9) Eosinophils (%) (Auto) 1 % (0-3) Basophils (%) (Auto) 0 % (0-3) Neutrophils # (Auto) 5.2 x10^3uL (1.8-7.7) Lymphocytes # (Auto) 1.5 x10^3/uL (1.0-4.8) Monocytes # (Auto) 0.7 x10^3/uL (0.0-1.1) Eosinophils # (Auto) 0.1 x10^3/uL (0.0-0.7) Basophils # (Auto) 0.0 x10^3/uL (0.0-0.2) Prothrombin Time 14.9 SEC (11.7-14.0) Prothromb Time International Ratio 1.2 (0.8-1.1) Activated Partial Thromboplast Time 28 SEC (24-38) Sodium Level 142 mmol/L (136-145) Potassium Level 4.1 mmol/L (3.5-5.1) Chloride Level 102 mmol/L (98-107) Carbon Dioxide Level 31 mmol/L (21-32) Anion Gap 9 (6-14) Blood Urea Nitrogen 16 mg/dL (8-26) Creatinine 1.3 mg/dL (0.7-1.3) Estimated GFR (Cockcroft-Gault) 53.3 BUN/Creatinine Ratio 12 (6-20) Glucose Level 108 mg/dL (70-99) Lactic Acid Level 1.5 mmol/L (0.4-2.0) Calcium Level 9.7 mg/dL (8.5-10.1) Magnesium Level 2.2 mg/dL (1.8-2.4) Total Bilirubin 1.2 mg/dL (0.2-1.0) Aspartate Amino Transf (AST/SGOT) 51 U/L (15-37) Alanine Aminotransferase (ALT/SGPT) 73 U/L (16-63) Alkaline Phosphatase 96 U/L (46-116) Troponin I Quantitative < 0.017 ng/mL (0.000-0.055) Total Protein 6.9 g/dL (6.4-8.2) Albumin 4.2 g/dL (3.4-5.0) Albumin/Globulin Ratio 1.6 (1.0-1.7) Lipase 189 U/L (73-393) Ethyl Alcohol Level < 10 mg/dL (0-10) Urine Collection Type Unknown Urine Color Yellow Urine Clarity Clear Urine pH 7.5 Urine Specific [place] >=1.030 Urine Protein 30 mg/dL (NEG-TRACE) Urine Glucose (UA) Negative mg/dL (NEG) Urine Ketones (Stick) Negative mg/dL (NEG) Urine Blood Negative (NEG) Urine Nitrite Negative (NEG) Urine Bilirubin Negative (NEG) Urine Urobilinogen Dipstick 1.0 mg/dL (0.2 mg/dL) Urine Leukocyte Esterase Negative (NEG) Urine RBC Occ /HPF (0-2) Urine WBC Rare /HPF (0-4) Urine Squamous Epithelial Cells Occ /LPF Urine Bacteria 0 /HPF (0-FEW) Urine Hyaline Casts Few /HPF Urine Mucus Mod /LPF Urine Opiates Screen Neg (NEG) Urine Methadone Screen Neg (NEG) Urine Barbiturates Neg (NEG) Urine Phencyclidine Screen Neg (NEG) Urine Amphetamine/Methamphetamine Neg (NEG) Urine Benzodiazepines Screen Neg (NEG) Urine Cocaine Screen Neg (NEG) Urine Cannabinoids Screen Neg (NEG) Urine Ethyl Alcohol Neg (NEG) Laboratory Tests Test 02/03/19 09:15 02/03/19 13:20 White Blood Count 7.5 x10^3/uL (4.0-11.0) Red Blood Count 5.32 x10^6/uL (4.30-5.70) Hemoglobin 15.5 g/dL (13.0-17.5) Hematocrit 47.2 % (39.0-53.0) Mean Corpuscular Volume 89 fL (79-100) Mean Corpuscular Hemoglobin 29 pg (25-35) Mean Corpuscular Hemoglobin Concent 33 g/dL (31-37) Red Cell Distribution Width 14.9 % (11.5-14.5) Platelet Count 200 x10^3/uL (140-400) Neutrophils (%) (Auto) 70 % (31-73) Lymphocytes (%) (Auto) 20 % (24-48) Monocytes (%) (Auto) 9 % (0-9) Eosinophils (%) (Auto) 1 % (0-3) Basophils (%) (Auto) 0 % (0-3) Neutrophils # (Auto) 5.2 x10^3uL (1.8-7.7) Lymphocytes # (Auto) 1.5 x10^3/uL (1.0-4.8) Monocytes # (Auto) 0.7 x10^3/uL (0.0-1.1) Eosinophils # (Auto) 0.1 x10^3/uL (0.0-0.7) Basophils # (Auto) 0.0 x10^3/uL (0.0-0.2) Prothrombin Time 14.9 SEC (11.7-14.0) Prothromb Time International Ratio 1.2 (0.8-1.1) Activated Partial Thromboplast Time 28 SEC (24-38) Sodium Level 142 mmol/L (136-145) Potassium Level 4.1 mmol/L (3.5-5.1) Chloride Level 102 mmol/L (98-107) Carbon Dioxide Level 31 mmol/L (21-32) Anion Gap 9 (6-14) Blood Urea Nitrogen 16 mg/dL (8-26) Creatinine 1.3 mg/dL (0.7-1.3) Estimated GFR (Cockcroft-Gault) 53.3 BUN/Creatinine Ratio 12 (6-20) Glucose Level 108 mg/dL (70-99) Lactic Acid Level 1.5 mmol/L (0.4-2.0) Calcium Level 9.7 mg/dL (8.5-10.1) Magnesium Level 2.2 mg/dL (1.8-2.4) Total Bilirubin 1.2 mg/dL (0.2-1.0) Aspartate Amino Transf (AST/SGOT) 51 U/L (15-37) Alanine Aminotransferase (ALT/SGPT) 73 U/L (16-63) Alkaline Phosphatase 96 U/L (46-116) Troponin I Quantitative < 0.017 ng/mL (0.000-0.055) Total Protein 6.9 g/dL (6.4-8.2) Albumin 4.2 g/dL (3.4-5.0) Albumin/Globulin Ratio 1.6 (1.0-1.7) Lipase 189 U/L (73-393) Ethyl Alcohol Level < 10 mg/dL (0-10) Urine Collection Type Unknown Urine Color Yellow Urine Clarity Clear Urine pH 7.5 Urine Specific [place] >=1.030 Urine Protein 30 mg/dL (NEG-TRACE) Urine Glucose (UA) Negative mg/dL (NEG) Urine Ketones (Stick) Negative mg/dL (NEG) Urine Blood Negative (NEG) Urine Nitrite Negative (NEG) Urine Bilirubin Negative (NEG) Urine Urobilinogen Dipstick 1.0 mg/dL (0.2 mg/dL) Urine Leukocyte Esterase Negative (NEG) Urine RBC Occ /HPF (0-2) Urine WBC Rare /HPF (0-4) Urine Squamous Epithelial Cells Occ /LPF Urine Bacteria 0 /HPF (0-FEW) Urine Hyaline Casts Few /HPF Urine Mucus Mod /LPF Urine Opiates Screen Neg (NEG) Urine Methadone Screen Neg (NEG) Urine Barbiturates Neg (NEG) Urine Phencyclidine Screen Neg (NEG) Urine Amphetamine/Methamphetamine Neg (NEG) Urine Benzodiazepines Screen Neg (NEG) Urine Cocaine Screen Neg (NEG) Urine Cannabinoids Screen Neg (NEG) Urine Ethyl Alcohol Neg (NEG) Images Images CT head: CT scan of brain was done without contrast. There is no intracranial hemorrhage or subdural hematoma. Ventricles are normal in size. There is no mass or shift of the midline. Sinuses are clear. There is decreased density in the periventricular white matter from chronic microvascular changes. An acute CVA is not identified. IMPRESSION: 1. Chronic microvascular changes in the white matter. 2. No intracranial hemorrhage or acute CVA noted. Assessment/Plan Assessment/Plan Impression: Vasovagal syncope, this time precipitated by gas pain, I find no evidence of stroke, transient ischemic attack, seizure, but I do note that he had abnormal carotid Doppler studies last time. The left carotid stenosis was subcritical, but there was also possible right vertebral artery occlusion. Recommendations: CT angiogram Agree with cardiac plans for tilt table No evidence of seizure disorder that would require an electroencephalogram and he cannot have an MRI because of the pacemaker. Thank you for letting me help with the patient's care. ADINA HINOJOSA MD Feb 03, 2019 15:11
[2019-02-03] MEDS: SUCRALFATE 1 GM TABLET. PO SCH (16:42)
--- NOTE | 2019-02-03 17:56 | PDOC2 ---
CONSULT Date of Consult Date of Consult DATE: 02/03/19 TIME: 17:43 Reason for Consult Reason for Consult: syncope with vomiting ?? hematemesis History of Present Illness Reason for Visit: 78 yo male with no chronic GI symptoms other than rare heartburn with certain foods. He presents today as he has a few times before with syncope- he has dizziness, then nausea and pain in right abd followed by syncope and vomiting. He ate normally this morning and felt well. He does take a lot of meds and sometimes takes then after eating like he did today- He has had extensive neuro and CV work ups suggesting vasovagal origin but no trigger is idenfied. He ? maybe ulcer in remote past but no chronic dyspeptic symptoms, nausea etc. His CT showed on obvious abdominal abnormalities- certainly none that would account for these events He had screening colonoscopy 2 years ago. He has regular bowel pattern as well. Past Medical History Cardiovascular: HTN, Syncope, Hyperlipidemia Pulmonary: Bronchitis CENTRAL NERVOUS SYSTEM: TIA GI: GERD Heme/Onc: No pertinent hx Hepatobiliary: No pertinent hx Psych: Anxiety, Depression Musculoskeletal: Osteoarthritis Rheumatologic: No pertinent hx Infectious disease: No pertinent hx Renal/: Benign prostatic enlarg. Endocrine: No pertinent hx Past Surgical History Past Surgical History: Pacemaker, Cataract Removal, Other Family History Family History: Heart Disease, Hypertension Social History ALCOHOL: none Drugs: None Lives: with Family Current Medications Current Medications Current Medications Sodium Chloride 1,000 ml @ 1,000 mls/hr 1X ONCE IV Last administered on at 09:15; Start 02/03/19 at 09:15; Stop 02/03/19 at 10:14; Status DC Iohexol (Omnipaque 300 Mg/ml) 60 ml 1X ONCE IV Last administered on 02/03/19at 10:14; Start 02/03/19 at 10:15; Stop 02/03/19 at 10:16; Status DC Info (CONTRAST GIVEN -- Rx MONITORING) 1 each PRN DAILY PRN MC SEE COMMENTS; Start 02/03/19 at 10:15; Stop 02/05/19 at 10:14 Allopurinol (Zyloprim) 300 mg DAILY PO ; Start 02/03/19 at 12:00 Clonazepam (KlonoPIN) 1 mg DAILY PO ; Start 02/03/19 at 12:00 Clopidogrel Bisulfate (Plavix) 75 mg DAILY PO ; Start 02/03/19 at 12:00 Losartan Potassium (Cozaar) 25 mg DAILY PO ; Start 02/03/19 at 12:00 Metoprolol Succinate (Toprol Xl) 12.5 mg DAILY PO ; Start 02/03/19 at 12:00 Fluoxetine HCl (PROzac) 40 mg DAILY PO ; Start 02/03/19 at 12:00 Pantoprazole Sodium (Protonix) 40 mg DAILYAC PO ; Start 02/03/19 at 12:00 Simvastatin (Zocor) 40 mg QHS PO ; Start 02/03/19 at 21:00 Sucralfate (Carafate) 1 gm BIDAC PO Last administered on 02/03/19at 16:42; Start 02/03/19 at 16:30 Active Scripts Active Metoprolol Succinate ( Xl ) (Metoprolol Succinate) 25 Mg Tab.er.24h 0.5 Tab PO DAILY Losartan Potassium 50 Mg Tablet 25 Mg PO DAILY 30 Days Reported Prevacid (Lansoprazole) 15 Mg Capsule.dr 1 Cap PO DAILY Clonazepam 1 Mg Tablet 1 Mg PO DAILY Clopidogrel (Clopidogrel Bisulfate) 75 Mg Tablet 75 Mg PO DAILY Tamsulosin Hcl 0.4 Mg Cap.er.24h 0.4 Mg PO DAILY Simvastatin 80 Mg Tablet 80 Mg PO DAILY Fluoxetine Hcl 40 Mg Capsule 40 Mg PO DAILY Carafate (Sucralfate) 1 Gm Tablet 1 Gm PO BID Allopurinol 300 Mg Tablet 300 Mg PO DAILY Allergies Allergies: Coded Allergies: No Known Drug Allergies (Unverified , 08/20/16) Physical Exam General: Alert, Oriented X3 HEENT: PERRLA Lungs: Clear to auscultation Heart: Regular rate, Normal S1, Normal S2 Abdomen: Normal bowel sounds, Soft, No tenderness, No hepatosplenomegaly, No masses Extremities: No clubbing, No cyanosis Neuro: Normal speech Psych/Mental Status: Mental status NL Vitals VITALS Vital Signs Date Time Temp Pulse Resp B/P (MAP) Pulse Ox O2 Delivery O2 Flow Rate FiO2 02/03/19 14:24 98.1 80 18 144/79 (100) 96 Room Air 98.1 Labs Labs Laboratory Tests Test 02/03/19 09:15 02/03/19 13:20 White Blood Count 7.5 x10^3/uL (4.0-11.0) Red Blood Count 5.32 x10^6/uL (4.30-5.70) Hemoglobin 15.5 g/dL (13.0-17.5) Hematocrit 47.2 % (39.0-53.0) Mean Corpuscular Volume 89 fL (79-100) Mean Corpuscular Hemoglobin 29 pg (25-35) Mean Corpuscular Hemoglobin Concent 33 g/dL (31-37) Red Cell Distribution Width 14.9 % (11.5-14.5) Platelet Count 200 x10^3/uL (140-400) Neutrophils (%) (Auto) 70 % (31-73) Lymphocytes (%) (Auto) 20 % (24-48) Monocytes (%) (Auto) 9 % (0-9) Eosinophils (%) (Auto) 1 % (0-3) Basophils (%) (Auto) 0 % (0-3) Neutrophils # (Auto) 5.2 x10^3uL (1.8-7.7) Lymphocytes # (Auto) 1.5 x10^3/uL (1.0-4.8) Monocytes # (Auto) 0.7 x10^3/uL (0.0-1.1) Eosinophils # (Auto) 0.1 x10^3/uL (0.0-0.7) Basophils # (Auto) 0.0 x10^3/uL (0.0-0.2) Prothrombin Time 14.9 SEC (11.7-14.0) Prothromb Time International Ratio 1.2 (0.8-1.1) Activated Partial Thromboplast Time 28 SEC (24-38) Sodium Level 142 mmol/L (136-145) Potassium Level 4.1 mmol/L (3.5-5.1) Chloride Level 102 mmol/L (98-107) Carbon Dioxide Level 31 mmol/L (21-32) Anion Gap 9 (6-14) Blood Urea Nitrogen 16 mg/dL (8-26) Creatinine 1.3 mg/dL (0.7-1.3) Estimated GFR (Cockcroft-Gault) 53.3 BUN/Creatinine Ratio 12 (6-20) Glucose Level 108 mg/dL (70-99) Lactic Acid Level 1.5 mmol/L (0.4-2.0) Calcium Level 9.7 mg/dL (8.5-10.1) Magnesium Level 2.2 mg/dL (1.8-2.4) Total Bilirubin 1.2 mg/dL (0.2-1.0) Aspartate Amino Transf (AST/SGOT) 51 U/L (15-37) Alanine Aminotransferase (ALT/SGPT) 73 U/L (16-63) Alkaline Phosphatase 96 U/L (46-116) Troponin I Quantitative < 0.017 ng/mL (0.000-0.055) Total Protein 6.9 g/dL (6.4-8.2) Albumin 4.2 g/dL (3.4-5.0) Albumin/Globulin Ratio 1.6 (1.0-1.7) Lipase 189 U/L (73-393) Ethyl Alcohol Level < 10 mg/dL (0-10) Urine Collection Type Unknown Urine Color Yellow Urine Clarity Clear Urine pH 7.5 Urine Specific [place] >=1.030 Urine Protein 30 mg/dL (NEG-TRACE) Urine Glucose (UA) Negative mg/dL (NEG) Urine Ketones (Stick) Negative mg/dL (NEG) Urine Blood Negative (NEG) Urine Nitrite Negative (NEG) Urine Bilirubin Negative (NEG) Urine Urobilinogen Dipstick 1.0 mg/dL (0.2 mg/dL) Urine Leukocyte Esterase Negative (NEG) Urine RBC Occ /HPF (0-2) Urine WBC Rare /HPF (0-4) Urine Squamous Epithelial Cells Occ /LPF Urine Bacteria 0 /HPF (0-FEW) Urine Hyaline Casts Few /HPF Urine Mucus Mod /LPF Urine Opiates Screen Neg (NEG) Urine Methadone Screen Neg (NEG) Urine Barbiturates Neg (NEG) Urine Phencyclidine Screen Neg (NEG) Urine Amphetamine/Methamphetamine Neg (NEG) Urine Benzodiazepines Screen Neg (NEG) Urine Cocaine Screen Neg (NEG) Urine Cannabinoids Screen Neg (NEG) Urine Ethyl Alcohol Neg (NEG) Laboratory Tests Test 02/03/19 09:15 02/03/19 13:20 White Blood Count 7.5 x10^3/uL (4.0-11.0) Red Blood Count 5.32 x10^6/uL (4.30-5.70) Hemoglobin 15.5 g/dL (13.0-17.5) Hematocrit 47.2 % (39.0-53.0) Mean Corpuscular Volume 89 fL (79-100) Mean Corpuscular Hemoglobin 29 pg (25-35) Mean Corpuscular Hemoglobin Concent 33 g/dL (31-37) Red Cell Distribution Width 14.9 % (11.5-14.5) Platelet Count 200 x10^3/uL (140-400) Neutrophils (%) (Auto) 70 % (31-73) Lymphocytes (%) (Auto) 20 % (24-48) Monocytes (%) (Auto) 9 % (0-9) Eosinophils (%) (Auto) 1 % (0-3) Basophils (%) (Auto) 0 % (0-3) Neutrophils # (Auto) 5.2 x10^3uL (1.8-7.7) Lymphocytes # (Auto) 1.5 x10^3/uL (1.0-4.8) Monocytes # (Auto) 0.7 x10^3/uL (0.0-1.1) Eosinophils # (Auto) 0.1 x10^3/uL (0.0-0.7) Basophils # (Auto) 0.0 x10^3/uL (0.0-0.2) Prothrombin Time 14.9 SEC (11.7-14.0) Prothromb Time International Ratio 1.2 (0.8-1.1) Activated Partial Thromboplast Time 28 SEC (24-38) Sodium Level 142 mmol/L (136-145) Potassium Level 4.1 mmol/L (3.5-5.1) Chloride Level 102 mmol/L (98-107) Carbon Dioxide Level 31 mmol/L (21-32) Anion Gap 9 (6-14) Blood Urea Nitrogen 16 mg/dL (8-26) Creatinine 1.3 mg/dL (0.7-1.3) Estimated GFR (Cockcroft-Gault) 53.3 BUN/Creatinine Ratio 12 (6-20) Glucose Level 108 mg/dL (70-99) Lactic Acid Level 1.5 mmol/L (0.4-2.0) Calcium Level 9.7 mg/dL (8.5-10.1) Magnesium Level 2.2 mg/dL (1.8-2.4) Total Bilirubin 1.2 mg/dL (0.2-1.0) Aspartate Amino Transf (AST/SGOT) 51 U/L (15-37) Alanine Aminotransferase (ALT/SGPT) 73 U/L (16-63) Alkaline Phosphatase 96 U/L (46-116) Troponin I Quantitative < 0.017 ng/mL (0.000-0.055) Total Protein 6.9 g/dL (6.4-8.2) Albumin 4.2 g/dL (3.4-5.0) Albumin/Globulin Ratio 1.6 (1.0-1.7) Lipase 189 U/L (73-393) Ethyl Alcohol Level < 10 mg/dL (0-10) Urine Collection Type Unknown Urine Color Yellow Urine Clarity Clear Urine pH 7.5 Urine Specific [place] >=1.030 Urine Protein 30 mg/dL (NEG-TRACE) Urine Glucose (UA) Negative mg/dL (NEG) Urine Ketones (Stick) Negative mg/dL (NEG) Urine Blood Negative (NEG) Urine Nitrite Negative (NEG) Urine Bilirubin Negative (NEG) Urine Urobilinogen Dipstick 1.0 mg/dL (0.2 mg/dL) Urine Leukocyte Esterase Negative (NEG) Urine RBC Occ /HPF (0-2) Urine WBC Rare /HPF (0-4) Urine Squamous Epithelial Cells Occ /LPF Urine Bacteria 0 /HPF (0-FEW) Urine Hyaline Casts Few /HPF Urine Mucus Mod /LPF Urine Opiates Screen Neg (NEG) Urine Methadone Screen Neg (NEG) Urine Barbiturates Neg (NEG) Urine Phencyclidine Screen Neg (NEG) Urine Amphetamine/Methamphetamine Neg (NEG) Urine Benzodiazepines Screen Neg (NEG) Urine Cocaine Screen Neg (NEG) Urine Cannabinoids Screen Neg (NEG) Urine Ethyl Alcohol Neg (NEG) Images Images CT- see report Assessment/Plan Assessment/Plan Episodes of syncope- associated with dizziness, then nausea- also relates pain in left abd- then syncope and vomiting. EMS reports ? flecks of blood in emesis but none reported before by patient and none reported by ER or nursing staff- he denies chronic GI symptoms as well- there is no clear pattern or trigger or prodome other than above. Except some occur while at [employer] Plan- since he is asymptomatic now and eating dinner, will hold on GI testing - but elective EGD might be reasonable to clear the ? xen[place] of blood story but the negative CT and lack of chronic symptoms speaks against GI pathology or a GI trigger Dr. Willard will assume his GI care tomorrow BEAU HYLTON MD Feb 03, 2019 17:56
[2019-02-03 19:11] VITALS: BP 144/80
[2019-02-03] MEDS ORDERED: SIMVASTATIN 40 MG TABLET. PO SCH (21:00)
[2019-02-03 23:10] VITALS: BP 134/79
[2019-02-04 03:30] VITALS: BP 162/100
[2019-02-04 07:00] VITALS: BP 155/84
--- NOTE | 2019-02-04 07:06 | EKG ---
[facility] [address] [place] [address] Test Date: 2019-02-03 Test Time: 09:18:04 Pat Name: COREEN MALIN Department: Room: 260 1 Gender: M Afterschool: [employer] : 1940 Requested By: SHANDA COVARRUBIAS Order Number: [id number] Reading MD: Adal Guerrero MD Measurements Intervals [place] Rate: 64 P: 0 VT: 144 QRS: -54 QRSD: 172 T: 108 QT: 486 QTc: 506 Interpretive Statements AV PACED Electronically Signed On 02-12-2019 22:14:40 CDT by Adal Guerrero MD
[2019-02-04] MEDS ORDERED: IOHEXOL 350 MG/ML 100 ML VIAL. IV ONE (07:15)
[2019-02-04] MEDS ORDERED: CONTRAST GIVEN. MC PRN (07:15)
[2019-02-04] MEDS: SUCRALFATE 1 GM TABLET. PO SCH ×2 (07:30→17:01)
[2019-02-04] MEDS: METOPROLOL SUCC 24HR ER 25 MG TAB.ER.24H. PO SCH (09:11)
[2019-02-04] MEDS: LOSARTAN POTASSIUM 50 MG TABLET. PO SCH (09:12)
[2019-02-04] MEDS: PANTOPRAZOLE 40 MG TABLET.DR. PO SCH (09:13)
[2019-02-04] MEDS ORDERED: cloNIDine HCL 0.1 MG TABLET PO PRN (09:15)
[2019-02-04] MEDS ORDERED: ONDANSETRON PF 4 MG/2 ML VIAL. IV PRN (09:15)
[2019-02-04] MEDS ORDERED: ACETAMINOPHEN 500 MG TABLET PO PRN (09:15)
[2019-02-04] MEDS ORDERED: TAMSULOSIN 0.4 MG CAP.ER.24H. PO SCH (10:00)
--- NOTE | 2019-02-04 10:36 | PDOC ---
PROGRESS NOTES Chief Complaint Chief Complaint SYncope, vaso vagal 2.,. CVA 2. Hypertension 3. Dyslipidemia 4. Sick sinus syndrome with syncope status post dual-chamber pacemaker. History of Present Illness History of Present Illness Chart reviewed Out having tilt table testing Indwelling pacer/device will be checked as per cardiology Confusion seems to have resolved-neurology was also consulted GI bleed, Hemoccult positive but hemodynamically stable and no symptoms hence no further plans from GI and I agree Plan: await from tilt table testing I have reconciled home meds and other supportive meds Add PT OT Vitals Vitals Vital Signs Date Time Temp Pulse Resp B/P (MAP) Pulse Ox O2 Delivery O2 Flow Rate FiO2 02/04/19 09:12 74 155/84 02/04/19 07:50 Room Air 02/04/19 07:00 98.0 16 95 98.0 Physical Exam General: Alert, Oriented X3 Heart: Regular rate, Normal S1, Normal S2 Lungs: Other Abdomen: Normal bowel sounds, Soft, No tenderness, No hepatosplenomegaly, No masses Extremities: No clubbing, No cyanosis Labs LABS Laboratory Tests Test 02/03/19 13:20 Urine Collection Type Unknown Urine Color Yellow Urine Clarity Clear Urine pH 7.5 Urine Specific [place] >=1.030 Urine Protein 30 mg/dL (NEG-TRACE) Urine Glucose (UA) Negative mg/dL (NEG) Urine Ketones (Stick) Negative mg/dL (NEG) Urine Blood Negative (NEG) Urine Nitrite Negative (NEG) Urine Bilirubin Negative (NEG) Urine Urobilinogen Dipstick 1.0 mg/dL (0.2 mg/dL) Urine Leukocyte Esterase Negative (NEG) Urine RBC Occ /HPF (0-2) Urine WBC Rare /HPF (0-4) Urine Squamous Epithelial Cells Occ /LPF Urine Bacteria 0 /HPF (0-FEW) Urine Hyaline Casts Few /HPF Urine Mucus Mod /LPF Urine Opiates Screen Neg (NEG) Urine Methadone Screen Neg (NEG) Urine Barbiturates Neg (NEG) Urine Phencyclidine Screen Neg (NEG) Urine Amphetamine/Methamphetamine Neg (NEG) Urine Benzodiazepines Screen Neg (NEG) Urine Cocaine Screen Neg (NEG) Urine Cannabinoids Screen Neg (NEG) Urine Ethyl Alcohol Neg (NEG) Review of Systems Review of Systems A 14 point ROS was completed with the following noted as positive: Other systems reviewed and negative. \CONSTITUTIONAL: No fever or chills EYES: No recent changes SKIN: No rash or itching CARDIOVASCULAR: No chest pain, syncope, palpitations, or edema RESPIRATORY: No SOB or cough GASTROINTESTINAL: No nausea, vomiting or abdominal pain NEUROLOGICAL: No headaches or weakness ENDOCRINE: No cold or heat intolerance GENITOURINARY: No urgency or frequency of urination MUSCULOSKELETAL: No back pain or joint pain LYMPHATICS: No enlarged lymph nodes PSYCHIATRIC: No anxiety or depression Comment Review of Relevant I have reviewed the following items [place] (where applicable) has been applied. Labs Laboratory Tests Test 02/03/19 09:15 02/03/19 13:20 White Blood Count 7.5 x10^3/uL (4.0-11.0) Red Blood Count 5.32 x10^6/uL (4.30-5.70) Hemoglobin 15.5 g/dL (13.0-17.5) Hematocrit 47.2 % (39.0-53.0) Mean Corpuscular Volume 89 fL (79-100) Mean Corpuscular Hemoglobin 29 pg (25-35) Mean Corpuscular Hemoglobin Concent 33 g/dL (31-37) Red Cell Distribution Width 14.9 % (11.5-14.5) Platelet Count 200 x10^3/uL (140-400) Neutrophils (%) (Auto) 70 % (31-73) Lymphocytes (%) (Auto) 20 % (24-48) Monocytes (%) (Auto) 9 % (0-9) Eosinophils (%) (Auto) 1 % (0-3) Basophils (%) (Auto) 0 % (0-3) Neutrophils # (Auto) 5.2 x10^3uL (1.8-7.7) Lymphocytes # (Auto) 1.5 x10^3/uL (1.0-4.8) Monocytes # (Auto) 0.7 x10^3/uL (0.0-1.1) Eosinophils # (Auto) 0.1 x10^3/uL (0.0-0.7) Basophils # (Auto) 0.0 x10^3/uL (0.0-0.2) Prothrombin Time 14.9 SEC (11.7-14.0) Prothromb Time International Ratio 1.2 (0.8-1.1) Activated Partial Thromboplast Time 28 SEC (24-38) Sodium Level 142 mmol/L (136-145) Potassium Level 4.1 mmol/L (3.5-5.1) Chloride Level 102 mmol/L (98-107) Carbon Dioxide Level 31 mmol/L (21-32) Anion Gap 9 (6-14) Blood Urea Nitrogen 16 mg/dL (8-26) Creatinine 1.3 mg/dL (0.7-1.3) Estimated GFR (Cockcroft-Gault) 53.3 BUN/Creatinine Ratio 12 (6-20) Glucose Level 108 mg/dL (70-99) Lactic Acid Level 1.5 mmol/L (0.4-2.0) Calcium Level 9.7 mg/dL (8.5-10.1) Magnesium Level 2.2 mg/dL (1.8-2.4) Total Bilirubin 1.2 mg/dL (0.2-1.0) Aspartate Amino Transf (AST/SGOT) 51 U/L (15-37) Alanine Aminotransferase (ALT/SGPT) 73 U/L (16-63) Alkaline Phosphatase 96 U/L (46-116) Troponin I Quantitative < 0.017 ng/mL (0.000-0.055) Total Protein 6.9 g/dL (6.4-8.2) Albumin 4.2 g/dL (3.4-5.0) Albumin/Globulin Ratio 1.6 (1.0-1.7) Lipase 189 U/L (73-393) Ethyl Alcohol Level < 10 mg/dL (0-10) Urine Collection Type Unknown Urine Color Yellow Urine Clarity Clear Urine pH 7.5 Urine Specific [place] >=1.030 Urine Protein 30 mg/dL (NEG-TRACE) Urine Glucose (UA) Negative mg/dL (NEG) Urine Ketones (Stick) Negative mg/dL (NEG) Urine Blood Negative (NEG) Urine Nitrite Negative (NEG) Urine Bilirubin Negative (NEG) Urine Urobilinogen Dipstick 1.0 mg/dL (0.2 mg/dL) Urine Leukocyte Esterase Negative (NEG) Urine RBC Occ /HPF (0-2) Urine WBC Rare /HPF (0-4) Urine Squamous Epithelial Cells Occ /LPF Urine Bacteria 0 /HPF (0-FEW) Urine Hyaline Casts Few /HPF Urine Mucus Mod /LPF Urine Opiates Screen Neg (NEG) Urine Methadone Screen Neg (NEG) Urine Barbiturates Neg (NEG) Urine Phencyclidine Screen Neg (NEG) Urine Amphetamine/Methamphetamine Neg (NEG) Urine Benzodiazepines Screen Neg (NEG) Urine Cocaine Screen Neg (NEG) Urine Cannabinoids Screen Neg (NEG) Urine Ethyl Alcohol Neg (NEG) Laboratory Tests Test 02/03/19 13:20 Urine Collection Type Unknown Urine Color Yellow Urine Clarity Clear Urine pH 7.5 Urine Specific [place] >=1.030 Urine Protein 30 mg/dL (NEG-TRACE) Urine Glucose (UA) Negative mg/dL (NEG) Urine Ketones (Stick) Negative mg/dL (NEG) Urine Blood Negative (NEG) Urine Nitrite Negative (NEG) Urine Bilirubin Negative (NEG) Urine Urobilinogen Dipstick 1.0 mg/dL (0.2 mg/dL) Urine Leukocyte Esterase Negative (NEG) Urine RBC Occ /HPF (0-2) Urine WBC Rare /HPF (0-4) Urine Squamous Epithelial Cells Occ /LPF Urine Bacteria 0 /HPF (0-FEW) Urine Hyaline Casts Few /HPF Urine Mucus Mod /LPF Urine Opiates Screen Neg (NEG) Urine Methadone Screen Neg (NEG) Urine Barbiturates Neg (NEG) Urine Phencyclidine Screen Neg (NEG) Urine Amphetamine/Methamphetamine Neg (NEG) Urine Benzodiazepines Screen Neg (NEG) Urine Cocaine Screen Neg (NEG) Urine Cannabinoids Screen Neg (NEG) Urine Ethyl Alcohol Neg (NEG) Medications Current Medications Sodium Chloride 1,000 ml @ 1,000 mls/hr 1X ONCE IV Last administered on at 09:15; Start 02/03/19 at 09:15; Stop 02/03/19 at 10:14; Status DC Iohexol (Omnipaque 300 Mg/ml) 60 ml 1X ONCE IV Last administered on 02/03/19at 10:14; Start 02/03/19 at 10:15; Stop 02/03/19 at 10:16; Status DC Info (CONTRAST GIVEN -- Rx MONITORING) 1 each PRN DAILY PRN MC SEE COMMENTS; Start 02/03/19 at 10:15; Stop 02/05/19 at 10:14; Status Cancel Allopurinol (Zyloprim) 300 mg DAILY PO ; Start 02/03/19 at 12:00 Clonazepam (KlonoPIN) 1 mg DAILY PO ; Start 02/03/19 at 12:00 Clopidogrel Bisulfate (Plavix) 75 mg DAILY PO ; Start 02/03/19 at 12:00 Losartan Potassium (Cozaar) 25 mg DAILY PO Last administered on 02/04/19at 09:12 ; Start 02/03/19 at 12:00 Metoprolol Succinate (Toprol Xl) 12.5 mg DAILY PO Last administered on at 09:11; Start 02/03/19 at 12:00 Fluoxetine HCl (PROzac) 40 mg DAILY PO ; Start 02/03/19 at 12:00 Pantoprazole Sodium (Protonix) 40 mg DAILYAC PO Last administered on 02/04/19at 09:13; Start 02/03/19 at 12:00 Simvastatin (Zocor) 40 mg QHS PO Last administered on 02/03/19at 20:20; Start at 21:00 Sucralfate (Carafate) 1 gm BIDAC PO Last administered on 02/03/19at 16:42; Start 02/03/19 at 16:30 Iohexol (Omnipaque 350 Mg/ml) 60 ml 1X ONCE IV Last administered on 02/04/19at 07:15; Start 02/04/19 at 07:15; Stop 02/04/19 at 07:16; Status DC Info (CONTRAST GIVEN -- Rx MONITORING) 1 each PRN DAILY PRN MC SEE COMMENTS; Start 02/04/19 at 07:15; Stop 02/06/19 at 07:14 Clonidine HCl (Catapres) 0.1 mg PRN Q1HR PRN PO HYPERTENSION, SEE COMMENTS; Start 02/04/19 at 09:15 Acetaminophen (Tylenol) 500 mg PRN Q6HRS PRN PO MILD PAIN / TEMP; Start at 09:15 Ondansetron HCl (Zofran) 4 mg PRN Q6HRS PRN IV NAUSEA/VOMITING; Start 02/04/19 at 09:15 Tamsulosin HCl (Flomax) 0.4 mg DAILY PO ; Start 02/04/19 at 10:00 Active Scripts Active Metoprolol Succinate ( Xl ) (Metoprolol Succinate) 25 Mg Tab.er.24h 0.5 Tab PO DAILY Losartan Potassium 50 Mg Tablet 25 Mg PO DAILY 30 Days Reported Prevacid (Lansoprazole) 15 Mg Capsule.dr 1 Cap PO DAILY Clonazepam 1 Mg Tablet 1 Mg PO DAILY Clopidogrel (Clopidogrel Bisulfate) 75 Mg Tablet 75 Mg PO DAILY Tamsulosin Hcl 0.4 Mg Cap.er.24h 0.4 Mg PO DAILY Simvastatin 80 Mg Tablet 80 Mg PO DAILY Fluoxetine Hcl 40 Mg Capsule 40 Mg PO DAILY Carafate (Sucralfate) 1 Gm Tablet 1 Gm PO BID Allopurinol 300 Mg Tablet 300 Mg PO DAILY Vitals/I & O Vital Sign - Last 24 Hours 02/03/19 02/03/19 02/03/19 02/03/19 11:09 11:10 14:24 19:11 Temp 97.3 98.1 98.1 97.3 98.1 98.1 Pulse 76 80 63 Resp 18 18 18 B/P (MAP) 136/86 (103) 144/79 (100) 144/80 (101) Pulse Ox 95 96 95 O2 Delivery Room Air Room Air Room Air Room Air 02/03/19 02/03/19 02/04/19 02/04/19 19:59 23:10 03:30 07:00 Temp 97.7 97.7 98.0 97.7 97.7 98.0 Pulse 78 72 74 Resp 18 18 16 B/P (MAP) 134/79 (97) 162/100 (120) 155/84 (107) Pulse Ox 95 96 95 O2 Delivery Room Air Room Air Room Air Room Air 02/04/19 02/04/19 02/04/19 07:50 09:11 09:12 Pulse 74 74 B/P (MAP) 155/84 155/84 O2 Delivery Room Air Intake and Output 02/03/19 02/03/19 02/04/19 14:59 22:59 06:59 Intake Total 1000 ml 550 ml 0 ml Output Total 50 ml 200 ml Balance 950 ml 350 ml 0 ml LANDEN RICHARDS MD Feb 04, 2019 10:36
--- NOTE | 2019-02-04 10:40 | RAD ---
CTA of the head and neck with contrast, 02/04/2019: HISTORY: Syncope Multidetector CT imaging was performed following an IV bolus injection of iodinated contrast material. There is moderate calcific plaquing of the thoracic aorta no high-grade stenosis is seen at the origins of the cervical cephalic arteries from the aortic arch. On the right the common carotid artery is widely patent. There is moderate calcific plaquing at the right carotid bifurcation producing approximately proximal a 40 percent diameter narrowing at the level of the bulb and 50-60 percent diameter narrowing of the proximal right internal carotid artery. The right internal carotid artery is widely patent in the upper neck there is mild calcific plaquing involving its cavernous segment without evidence of high-grade stenosis. The right anterior cerebral and middle cerebral arteries are unremarkable. There is slightly more extensive calcific plaquing at the left carotid bifurcation. There is approximately 60 percent diameter narrowing of the left carotid bulb and the origin of the left internal carotid artery. The distal left internal carotid artery is widely patent. There is mild calcific plaquing involving its cavernous segment. The left anterior cerebral and middle cerebral arteries are unremarkable. The left vertebral artery in the neck is dominant and widely patent up through its junction with the basilar artery. The right vertebral artery in the neck is patent but small. It terminates primarily in right cerebellar branches. There is a tiny branch connecting to the basilar artery. The right posterior cerebral artery is unremarkable. The left posterior cerebral artery is supplied primarily via a prominent posterior communicating artery, which is a normal variant. No major intracranial stenosis or occlusion is identified. No aneurysm is evident. Moderate multilevel degenerative changes are present in the cervical spine. IMPRESSION: 1. Moderate calcific plaquing at both carotid bifurcations, left greater than right, with approximately 60 percent diameter narrowing of the proximal internal carotid arteries bilaterally. 2. Dominant left vertebral artery. 3. origin of the left posterior cerebral artery which is a normal variant. PQRS Compliance Statement: One or more of the following individualized dose reduction techniques were utilized for this examination: 1. Automated exposure control 2. Adjustment of the mA and/or kV according to patient size 3. Use of iterative reconstruction technique Electronically signed by: Ralph Pete MD (02/04/2019 10:37 AM) [facility]
[2019-02-04 10:59] VITALS: BP 168/81
--- NOTE | 2019-02-04 11:32 | PDOC ---
Subjective: Subjective: Feeling okay. Says back from CT and waiting on tilt-table test. Denies n/v or abd pain. Objective: Vital Signs: Vital Signs Date Time Temp Pulse Resp B/P (MAP) Pulse Ox O2 Delivery O2 Flow Rate FiO2 02/04/19 10:59 98.2 100 18 168/81 (110) 96 Room Air 98.2 Labs: Laboratory Tests Test 02/03/19 13:20 Urine Collection Type Unknown Urine Color Yellow Urine Clarity Clear Urine pH 7.5 Urine Specific [place] >=1.030 Urine Protein 30 mg/dL Urine Glucose (UA) Negative mg/dL Urine Ketones (Stick) Negative mg/dL Urine Blood Negative Urine Nitrite Negative Urine Bilirubin Negative Urine Urobilinogen Dipstick 1.0 mg/dL Urine Leukocyte Esterase Negative Urine RBC Occ /HPF Urine WBC Rare /HPF Urine Squamous Epithelial Cells Occ /LPF Urine Bacteria 0 /HPF Urine Hyaline Casts Few /HPF Urine Mucus Mod /LPF Urine Opiates Screen Neg Urine Methadone Screen Neg Urine Barbiturates Neg Urine Phencyclidine Screen Neg Urine Amphetamine/Methamphetamine Neg Urine Benzodiazepines Screen Neg Urine Cocaine Screen Neg Urine Cannabinoids Screen Neg Urine Ethyl Alcohol Neg Imaging: CT A/P IMPRESSION: 1. Multiple bilateral renal cysts. 2. Degenerative change in the lumbar spine. 3. Small abdominal aortic aneurysm. 4. Mild distention of the stomach. 5. No abdominal or pelvic mass or other acute finding noted. Head/Neck CTA IMPRESSION: 1. Moderate calcific plaquing at both carotid bifurcations, left greater than right, with approximately 60 percent diameter narrowing of the proximal internal carotid arteries bilaterally. 2. Dominant left vertebral artery. 3. origin of the left posterior cerebral artery which is a normal variant. PE: GEN: NAD LUNGS: CTAB HEART: RRR ABD: S/ND/NT NEURO/PSYCH: A & O 3 A/P: Syncope w/ n/v (?flecks of blood) and left abd pain Rare heartburn, ?remote h/o "ulcer" - Hgb and BUN WNL CRC screen - UTD Mildly elevated LFTs -- On Carafate and PPI. ?EGD down the road - will review w/ Dr. Willard. Can recheck LFTs, consider RUQ US. YANICK SHEPHERD Feb 04, 2019 11:32
[2019-02-04 12:31] LABS: ALBUMIN 3.5 g/dL (3.4-5.0); DIRECT BILIRUBIN 0.3 mg/dL (0.0-0.2); TOTAL BILIRUBIN 1.1 mg/dL (0.2-1.0); TOTAL PROTEIN 6.5 g/dL (6.4-8.2)
--- NOTE | 2019-02-04 13:06 | PDOC ---
NICHO LIZ [employer]PER[employer]OR 02/04/19 1305: CARDIO Progress Notes Date and Time Date of Service 02/04/19 Time of Evaluation 1245 Subjective Subjective: No Chest Pain, No shortness of breath, No Palpitations Comments: hungry, wanting to eat Vitals Vitals Vital Signs Date Time Temp Pulse Resp B/P (MAP) Pulse Ox O2 Delivery O2 Flow Rate FiO2 02/04/19 10:59 98.2 100 18 168/81 (110) 96 Room Air 98.2 Weight Weight [ ] Input and Output Intake and Output Intake and Output 02/04/19 07:00 Intake Total 1550 ml Output Total 250 ml Balance 1300 ml Intake Oral 550 ml IV Total 1000 ml Output Urine Total 250 ml Laboratory Labs Laboratory Tests Test 02/03/19 13:20 02/04/19 12:05 Urine Collection Type Unknown Urine Color Yellow Urine Clarity Clear Urine pH 7.5 Urine Specific [place] >=1.030 Urine Protein 30 mg/dL (NEG-TRACE) Urine Glucose (UA) Negative mg/dL (NEG) Urine Ketones (Stick) Negative mg/dL (NEG) Urine Blood Negative (NEG) Urine Nitrite Negative (NEG) Urine Bilirubin Negative (NEG) Urine Urobilinogen Dipstick 1.0 mg/dL (0.2 mg/dL) Urine Leukocyte Esterase Negative (NEG) Urine RBC Occ /HPF (0-2) Urine WBC Rare /HPF (0-4) Urine Squamous Epithelial Cells Occ /LPF Urine Bacteria 0 /HPF (0-FEW) Urine Hyaline Casts Few /HPF Urine Mucus Mod /LPF Urine Opiates Screen Neg (NEG) Urine Methadone Screen Neg (NEG) Urine Barbiturates Neg (NEG) Urine Phencyclidine Screen Neg (NEG) Urine Amphetamine/Methamphetamine Neg (NEG) Urine Benzodiazepines Screen Neg (NEG) Urine Cocaine Screen Neg (NEG) Urine Cannabinoids Screen Neg (NEG) Urine Ethyl Alcohol Neg (NEG) Total Bilirubin 1.1 mg/dL (0.2-1.0) Direct Bilirubin 0.3 mg/dL (0.0-0.2) Aspartate Amino Transf (AST/SGOT) 33 U/L (15-37) Alanine Aminotransferase (ALT/SGPT) 51 U/L (16-63) Alkaline Phosphatase 88 U/L (46-116) Total Protein 6.5 g/dL (6.4-8.2) Albumin 3.5 g/dL (3.4-5.0) Physical Exam HEENT: Neck Supple W Full Motion Chest: Symmetric LUNGS: Clear to Auscultation Heart: S1S2, RRR Abdomen: Soft N/T Extremities: No Edema Neurology: alert, oriented, follow commands Assessment Assessment 1. Syncope; most probable vasovagal; Tilt table today. No further dizziness today. Tele without acute events 2. SSS s/p PPM (Biotronik) 4. H/o CVA 4. Hypertension; hypotensive upon arrival- now hypertensive 5. Hyperlipidemia; statin 6. Carotid artery disease: L>R with 60% narrowing Recommendations Consider adding [employer]ES Biotronik to interrogate device Tilt table today Further recommendations pending above. CORAZON ABREU MD 02/04/19 1831: CARDIO Progress Notes Plan Plan Patient seen and examined. Agree with above nurse practitioner note. No clear evidence of etiology of syncope after his tilt table study. Pacemaker interrogation did not reveal any significant arrhythmias. Changes made to the device settings. He is occasionally have pacemaker mediated tachycardia but no significant hypotension has been noted. Supportive care for now. I've asked him to stay one more night to be monitored but he really wishes to go home. Okay to discharge and we will follow-up in the office later this week. NICHO LIZ APRN Feb 04, 2019 13:05 CORAZON ABREU MD Feb 04, 2019 18:31
--- NOTE | 2019-02-04 13:49 | NUR ---
SS following for discharge planning. SS reviewed pt chart. Pt is from home with spouse and is currently on room air. No discharge needs noted at this time. SS will continue to follow for pending discharge needs.
[2019-02-04] MEDS: ALLOPURINOL 300 MG TABLET. PO SCH (17:01)
[2019-02-04] MEDS: CLOPIDOGREL BISULFATE 75 MG TABLET PO SCH (17:01)
[2019-02-04] MEDS: FLUoxetine HCL 20 MG CAPSULE PO SCH (17:02)
[2019-02-04] MEDS: clonazePAM 1 MG TABLET PO SCH (17:04)
--- NOTE | 2019-02-04 17:18 | CARD ---
MR#: [id number] Date of Study: 02/04/2019 Ordering Physician: ADAL ABREU, Referring Physician: CHAU CARTER Tech: Genie Guardado RN APPROVED REPORT EXAM S1S2, lungs CTA, SR - vpacing Attending Nurse: Genie Guardado RN HISTORY The Patient is a 78 year-old male with a history of PPM, htn, high cholesterol INDICATIONS syncope x 8 PROCEDURE After explaining the risks, benefits, and alternative options, informed consent was obtained from the patient. Base - lineRhythm: SinusHR: 63 bpmBP: 171/44fdJlQ0 Sat: 97 % [id number]: SinusHR: 62 bpmBP: 173/56uqZuF2 Sat: 97 % [id number]: SinusHR: 62 bpmBP: 162/48xlNgB5 Sat: 96 % 80' [id number]: SinusHR: 69 bpmBP: 182/82hyVxG2 Sat: 96 % 80' [id number]: SinusHR: 85 bpmBP: 173/209zvLiS7 Sat: 96 % 80' Tilt15:45Rhythm: SinusHR: 83 bpmBP: 154/27jaPbR0 Sat: 96 % 80' Tilt15:50Rhythm: SinusHR: 85 bpmBP: 171/31leOiX1 Sat: 96 % 80' Tilt15:55Rhythm: SinusHR: 76 bpmBP: 189/54xmOwT5 Sat: 96 % 80' Tilt16:00Rhythm: SinusHR: 84 bpmBP: 167/890lfGtJ3 Sat: 98 % 80' Tilt16:05Rhythm: SinusHR: 83 bpmBP: 169/21zoXdZ4 Sat: 97 % Flat16:10Rhythm: Ventricular PacedHR: 71 bpmBP: 164/60edCbG5 Sat: 95 % Flat16:15Rhythm: SinusHR: 78 bpmBP: 163/35ylSlJ0 Sat: 95 % COMPLICATIONS denies any dizzinss. did have some paced beats as well as some few pvc's CONCLUSION No evidence of cardio-inhibitory or vasovagal orthostatic syncope. Signed by : Adal Abreu, Electronically Approved : 02/04/2019 17:18:09
--- NOTE | 2019-02-04 17:53 | PDOC3 ---
Discharge Summary Visit Information Date of Admission: Feb 03, 2019 Date of Discharge: Feb 04, 2019 Admitting Diagnosis Comment: SYncope, vaso vagal 2.,. CVA 2. Hypertension 3. Dyslipidemia 4. Sick sinus syndrome with syncope status post dual-chamber pacemaker. Brief Hospital Course Allergies Allergies Coded Allergies Type Severity Reaction Last Updated Verified No Known Drug Allergies 08/20/16 No Vital Signs Vital Signs Date Time Temp Pulse Resp B/P (MAP) Pulse Ox O2 Delivery O2 Flow Rate FiO2 02/04/19 10:59 98.2 100 18 168/81 (110) 96 Room Air 98.2 Lab Results Laboratory Tests Test 02/03/19 09:15 02/03/19 13:20 02/04/19 12:05 White Blood Count 7.5 x10^3/uL (4.0-11.0) Red Blood Count 5.32 x10^6/uL (4.30-5.70) Hemoglobin 15.5 g/dL (13.0-17.5) Hematocrit 47.2 % (39.0-53.0) Mean Corpuscular Volume 89 fL (79-100) Mean Corpuscular Hemoglobin 29 pg (25-35) Mean Corpuscular Hemoglobin Concent 33 g/dL (31-37) Red Cell Distribution Width 14.9 % (11.5-14.5) Platelet Count 200 x10^3/uL (140-400) Neutrophils (%) (Auto) 70 % (31-73) Lymphocytes (%) (Auto) 20 % (24-48) Monocytes (%) (Auto) 9 % (0-9) Eosinophils (%) (Auto) 1 % (0-3) Basophils (%) (Auto) 0 % (0-3) Neutrophils # (Auto) 5.2 x10^3uL (1.8-7.7) Lymphocytes # (Auto) 1.5 x10^3/uL (1.0-4.8) Monocytes # (Auto) 0.7 x10^3/uL (0.0-1.1) Eosinophils # (Auto) 0.1 x10^3/uL (0.0-0.7) Basophils # (Auto) 0.0 x10^3/uL (0.0-0.2) Prothrombin Time 14.9 SEC (11.7-14.0) Prothromb Time International Ratio 1.2 (0.8-1.1) Activated Partial Thromboplast Time 28 SEC (24-38) Sodium Level 142 mmol/L (136-145) Potassium Level 4.1 mmol/L (3.5-5.1) Chloride Level 102 mmol/L (98-107) Carbon Dioxide Level 31 mmol/L (21-32) Anion Gap 9 (6-14) Blood Urea Nitrogen 16 mg/dL (8-26) Creatinine 1.3 mg/dL (0.7-1.3) Estimated GFR (Cockcroft-Gault) 53.3 BUN/Creatinine Ratio 12 (6-20) Glucose Level 108 mg/dL (70-99) Lactic Acid Level 1.5 mmol/L (0.4-2.0) Calcium Level 9.7 mg/dL (8.5-10.1) Magnesium Level 2.2 mg/dL (1.8-2.4) Total Bilirubin 1.2 mg/dL (0.2-1.0) 1.1 mg/dL (0.2-1.0) Aspartate Amino Transf (AST/SGOT) 51 U/L (15-37) 33 U/L (15-37) Alanine Aminotransferase (ALT/SGPT) 73 U/L (16-63) 51 U/L (16-63) Alkaline Phosphatase 96 U/L (46-116) 88 U/L (46-116) Troponin I Quantitative < 0.017 ng/mL (0.000-0.055) Total Protein 6.9 g/dL (6.4-8.2) 6.5 g/dL (6.4-8.2) Albumin 4.2 g/dL (3.4-5.0) 3.5 g/dL (3.4-5.0) Albumin/Globulin Ratio 1.6 (1.0-1.7) Lipase 189 U/L (73-393) Ethyl Alcohol Level < 10 mg/dL (0-10) Urine Collection Type Unknown Urine Color Yellow Urine Clarity Clear Urine pH 7.5 Urine Specific [place] >=1.030 Urine Protein 30 mg/dL (NEG-TRACE) Urine Glucose (UA) Negative mg/dL (NEG) Urine Ketones (Stick) Negative mg/dL (NEG) Urine Blood Negative (NEG) Urine Nitrite Negative (NEG) Urine Bilirubin Negative (NEG) Urine Urobilinogen Dipstick 1.0 mg/dL (0.2 mg/dL) Urine Leukocyte Esterase Negative (NEG) Urine RBC Occ /HPF (0-2) Urine WBC Rare /HPF (0-4) Urine Squamous Epithelial Cells Occ /LPF Urine Bacteria 0 /HPF (0-FEW) Urine Hyaline Casts Few /HPF Urine Mucus Mod /LPF Urine Opiates Screen Neg (NEG) Urine Methadone Screen Neg (NEG) Urine Barbiturates Neg (NEG) Urine Phencyclidine Screen Neg (NEG) Urine Amphetamine/Methamphetamine Neg (NEG) Urine Benzodiazepines Screen Neg (NEG) Urine Cocaine Screen Neg (NEG) Urine Cannabinoids Screen Neg (NEG) Urine Ethyl Alcohol Neg (NEG) Direct Bilirubin 0.3 mg/dL (0.0-0.2) Laboratory Tests Test 02/04/19 12:05 Total Bilirubin 1.1 mg/dL (0.2-1.0) Direct Bilirubin 0.3 mg/dL (0.0-0.2) Aspartate Amino Transf (AST/SGOT) 33 U/L (15-37) Alanine Aminotransferase (ALT/SGPT) 51 U/L (16-63) Alkaline Phosphatase 88 U/L (46-116) Total Protein 6.5 g/dL (6.4-8.2) Albumin 3.5 g/dL (3.4-5.0) Brief Hospital Course Mr. Cruz is a 78 old male admitted for syncope likely vasovagal. He does have history of sick sinus with dual-chamber pacer interrogated/indwelling. Underwent tilt table testing - the patient wants to go home and is cleared from cardiology go home No new home meds No PT needs 2 notes today Discharge Information Condition at Discharge: Improved, Stable Disposition/Orders: D/C to Home Scheduled Allopurinol (Allopurinol) 300 Mg Tablet, 300 MG PO DAILY, (Reported) Entered as Reported by: JITENDRA CAMACHO on 08/20/161746 Last Action: Continued on 02/03/191126 by CHAU CARTER Clonazepam (Clonazepam) 1 Mg Tablet, 1 MG PO DAILY, (Reported) Entered as Reported by: JITENDRA CAMACHO on 08/20/161746 Last Action: Continued on 02/03/191126 by CHAU CARTER Clopidogrel Bisulfate (Clopidogrel) 75 Mg Tablet, 75 MG PO DAILY for TO PREVENT BLOOD CLOTS, #30 Ref 0 (Reported) Entered as Reported by: JITENDRA CAMACHO on 08/20/161746 Last Action: Continued on 02/03/191126 by NIAL CASTLE Fluoxetine Hcl (Fluoxetine Hcl) 40 Mg Capsule, 40 MG PO DAILY, (Reported) Entered as Reported by: JITENDRA CAMACHO on 08/20/161746 Last Action: Converted on 02/03/191126 by NIAL CASTLE Lansoprazole (Prevacid) 15 Mg Capsule.dr, 1 CAP PO DAILY, #30 Ref 3 (Reported) Entered as Reported by: RIGO ESTRADA on 07/11/17 1406 Last Action: Converted on 02/03/191126 by NIAL CASTLE Losartan Potassium (Losartan Potassium) 50 Mg Tablet, 25 MG PO DAILY for HTN/ CHF for 30 Days, #15 Prescribed by: MANDEEP SCALES MD on 12/03/181528 Last Action: Continued on 02/03/191126 by NIAL CASTLE Metoprolol Succinate (Metoprolol Succinate ( Xl )) 25 Mg Tab.er.24h, 0.5 TAB PO DAILY for CHF, #45 Ref 3 Prescribed by: MANDEEP SCALES MD on 12/03/181528 Last Action: Continued on 02/03/191126 by NIAL CASTLE Simvastatin (Simvastatin) 80 Mg Tablet, 80 MG PO DAILY for FOR CHOLESTEROL, #30 Ref 0 (Reported) Entered as Reported by: JITENDRA CAMACHO on 08/20/161746 Last Action: Converted on 02/03/191126 by NIAL CASTLE Sucralfate (Carafate) 1 Gm Tablet, 1 GM PO BID, (Reported) Entered as Reported by: JITENDRA CAMACHO on 08/20/161746 Last Action: Converted on 02/03/191126 by NIAL CASTLE Tamsulosin Hcl (Tamsulosin Hcl) 0.4 Mg Cap.er.24h, 0.4 MG PO DAILY, (Reported) Entered as Reported by: JITENDRA CAMACHO on 08/20/161746 Last Action: Continued on 02/04/19908 by LANDEN ENAMORADO MD Feb 04, 2019 17:53
--- NOTE | 2019-02-04 18:04 | PDOC ---
PROGRESS NOTES Assessment Assessment IMPRESSION: Syncope. Bilateral carotid A stenosis, 60%. SSS. Elevated hepatic enzymes. HTN. HLD. Gout. Pacemaker. RECOMMENDATIONS/PLAN: Continue Plavix 75 mg daily. Continue Zocor HS. Consulted Cardiology. Discussed with his at bedside. EEG, outpatient base [place]. FU with PCP. Past Medical History Cardiovascular: HTN, Syncope, Hyperlipidemia CENTRAL NERVOUS SYSTEM: TIA GI: GERD Psych: Anxiety, Depression Musculoskeletal: Osteoarthritis Renal/: Benign prostatic enlarg. Past Surgical History Pacemaker, Cataract Removal, Other (vasectomy) Family History CAD Social History , retired, no alcohol or tobacco ALLERGY: Reviewed. MEDICATIONS: Refer to MAR REVIEW OF SYSTEMS: Refer to PMH and PSH. PHYSICAL EXAMINATION: General appearance in no acute distress. HEENT: Normocephalic and nontraumatic. Eyes, nose, ears, and throat are unremarkable. Neck is supple. No lymphadenopathy. No bruits are heard over the carotid artery. No Crepitus. Cardiovascular: S1, S2, regular rate and rhythm. Pulmonary: Clear to auscultation bilaterally. Abdomen: Bowel sounds are positive. Abdomen is soft, nontender, and nondistended. Extremities: No rash, lesions, or edema. No restriction of range of motion NEUROLOGICAL EXAMINATION: Alert. Oriented to time, place and person. PERRL. EOMI. CN: no focal findings. Muscle tone: within normal. Muscle strength: 5 DTR: 2 Plantar reflex: Flexor response bilaterally Gait: At baseline normal. Sensory exam: no abnormal findings. No cerebellar signs elicited. F-T-N test accurate. Objective Objective Vital Signs Date Time Temp Pulse Resp B/P (MAP) Pulse Ox O2 Delivery O2 Flow Rate FiO2 02/04/19 10:59 98.2 100 18 168/81 (110) 96 Room Air 98.2 Intake and Output 02/04/19 07:00 Intake Total 1550 ml Output Total 250 ml Balance 1300 ml Intake Oral 550 ml IV Total 1000 ml Output Urine Total 250 ml Vitals Signs Vitals VS - Last 72 Hours, by Label Date Time Temp Pulse Resp B/P (MAP) Pulse Ox O2 Delivery O2 Flow Rate FiO2 02/04/19 10:59 98.2 100 18 168/81 (110) 96 Room Air 98.2 02/04/19 09:12 74 155/84 02/04/19 09:11 74 155/84 02/04/19 07:50 Room Air 02/04/19 07:00 98.0 74 16 155/84 (107) 95 Room Air 98.0 02/04/19 03:30 97.7 72 18 162/100 (120) 96 Room Air 97.7 02/03/19 23:10 97.7 78 18 134/79 (97) 95 Room Air 97.7 02/03/19 19:59 Room Air 02/03/19 19:11 98.1 63 18 144/80 (101) 95 Room Air 98.1 02/03/19 14:24 98.1 80 18 144/79 (100) 96 Room Air 98.1 02/03/19 11:10 Room Air 02/03/19 11:09 97.3 76 18 136/86 (103) 95 Room Air 97.3 02/03/19 10:00 60 16 142/68 (92) 95 Room Air 02/03/19 09:30 60 18 89/53 (65) 94 Room Air 02/03/19 09:08 97.4 81 28 89/52 (64) 97 Room Air 97.4 Laboratory Laboratory Laboratory Tests Test 02/04/19 12:05 Total Bilirubin 1.1 mg/dL (0.2-1.0) Direct Bilirubin 0.3 mg/dL (0.0-0.2) Aspartate Amino Transf (AST/SGOT) 33 U/L (15-37) Alanine Aminotransferase (ALT/SGPT) 51 U/L (16-63) Alkaline Phosphatase 88 U/L (46-116) Total Protein 6.5 g/dL (6.4-8.2) Albumin 3.5 g/dL (3.4-5.0) Medication Medications Current Medications Acetaminophen (Tylenol) 500 mg PRN Q6HRS PRN PO MILD PAIN / TEMP; Start at 09:15 Clonidine HCl (Catapres) 0.1 mg PRN Q1HR PRN PO HYPERTENSION, SEE COMMENTS; Start 02/04/19 at 09:15 Info (CONTRAST GIVEN -- Rx MONITORING) 1 each PRN DAILY PRN MC SEE COMMENTS; Start 02/04/19 at 07:15; Stop 02/06/19 at 07:14 Iohexol (Omnipaque 350 Mg/ml) 60 ml 1X ONCE IV Last administered on 02/04/19at 07:15; Start 02/04/19 at 07:15; Stop 02/04/19 at 07:16; Status DC Ondansetron HCl (Zofran) 4 mg PRN Q6HRS PRN IV NAUSEA/VOMITING; Start 02/04/19 at 09:15 Simvastatin (Zocor) 40 mg QHS PO Last administered on 02/03/19at 20:20; Start at 21:00 Tamsulosin HCl (Flomax) 0.4 mg DAILY PO Last administered on 02/04/19at 17:06; Start 02/04/19 at 10:00 Comment Review of Relevant I have reviewed the following items [place] (where applicable) has been applied. LELO CISNEROS MD Feb 04, 2019 18:04
--- NOTE | 2019-02-04 18:13 | NUR ---
DISCHARGE INSTRUCTIONS GIVEN TO PATIENT AND FAMILY. PIVA ND HEART MONITOR REMOVED. ESCORTED PATIENT PER AMBULATION TO EAST ENTRANCE INTO A PRIVATE VEHICLE.
== END 2019-02-04 18:10 | disposition home or self-care (01) | DRG 67 ==
LOC: ER 09:08 → 2 SOUTH 10:41
PROVIDERS: ADMIT Internal Medicine; ATTEND Internal Medicine
PROC: 4B02XSZ Measurement of Cardiac Pacemaker, External Approach (ICD-10-PCS; principal; 2019-02-04)
DX: I65.23 Occlusion and stenosis of bilateral carotid arteries (principal); G93.41 Metabolic encephalopathy; R55 Syncope and collapse; K21.9 Gastro-esophageal reflux disease without esophagitis; N40.0 Benign prostatic hyperplasia without lower urinary tract symptoms; M10.9 Gout, unspecified; I50.9 Heart failure, unspecified; I11.0 Hypertensive heart disease with heart failure; F41.9 Anxiety disorder, unspecified; K64.9 Unspecified hemorrhoids; F32.9 Major depressive disorder, single episode, unspecified; E78.5 Hyperlipidemia, unspecified; I95.9 Hypotension, unspecified; M19.90 Unspecified osteoarthritis, unspecified site; Z82.49 Family history of ischemic heart disease and other diseases of the circulatory system; Z86.73 Personal history of transient ischemic attack (TIA), and cerebral infarction without residual deficits; Z95.0 Presence of cardiac pacemaker; Z79.899 Other long term (current) drug therapy; Z79.02 Long term (current) use of antithrombotics/antiplatelets
CPT/HCPCS: 36415; 70450; 70496; 70498; 71045; 74177; 80053; 80076; 80307; 81001; 83605; 83690; 83735; 84484; 85025; 85610; 85730; 86850; 86900; 86901; 93005; 93660; 96360; G0480; J7030; Q9967; 99285-25

== ENCOUNTER → 2019-02-08 | Outpatient (CLI) | payer MEDICARE ==
[2019-02-04 10:59] VITALS: BP 168/81
--- NOTE | 2019-02-08 12:42 | EEG ---
DATE OF SERVICE: 02/08/2019 EEG NUMBER: [id number] OBJECTIVE: This is a 78-year-old male patient with a history of syncopal spell versus seizure or seizure-like episodes. EEG was requested to help rule out seizure. METHODS: Twenty electrodes were applied according to the international 10-20 electrode placement system. EKG monitoring, hyperventilation, intermittent photic stimulation, monopolar and bipolar montages are routinely utilized. The record was obtained on a digital system with video monitoring. FINDINGS: 1. Background: The patient was recorded in the awake and drowsy states. No actual sleep state was recorded. The overall background amplitude is 10-20 microvolts. A posterior dominant rhythm of 8 Hz is observed. 2. Abnormalities: No specific epileptiform discharge or electrographic seizure is seen. No focal or diffuse slowing. 3. Activation: Hyperventilation was performed with good efforts and normal response. Intermittent photic stimulation was performed with photic driving. IMPRESSION: This EEG is a normal study for the awake and drowsy states. No actual sleep state was recorded. No focal, lateralizing, specific epileptiform discharge or electrographic seizure is seen. LELO CISNEROS MD DR: JESUS/cynthia JOB#: [id number] / [id number] [place]
== END | disposition home or self-care (01) ==
LOC: RT 09:35
PROVIDERS: ATTEND Psychiatry & Neurology Neurology
DX: R55 Syncope and collapse (principal); R41.82 Altered mental status, unspecified
CPT/HCPCS: 95816

== ENCOUNTER → 2019-06-14 | Outpatient (CLI) | payer MEDICARE ==
--- NOTE | 2019-06-14 13:02 | RAD ---
DOPPLER CAROTID BILAT History: CVA. Comparison: CT angiogram neck February 04, 2019. Exam : Carotid Duplex with Grayscale Ultrasound and Spectral and Color Doppler Analysis: PQRS Compliance Statement - Stenosis calculations for CT, MR and conventional angiography are based upon measurement of the distal ICA diameter in accordance with the NASCET methodology. Stenosis calculations for carotid ultrasound studies are derived from validated velocity criteria which are known to correlate with the NASCET methodology. Findings: The common, internal and external carotid arteries were examined by grayscale, color and spectral Doppler ultrasound. Moderate bilateral distal common carotid artery and carotid bulb including proximal internal carotid artery calcifications, left greater than right. Flow in both vertebral arteries was antegrade and normal. The following are the velocities and ratios in the carotid arteries on both sides: RIGHT ICA PV: 123cm/sec RIGHT CCA PV: 83cm/sec RIGHT ICA ED: 38cm/sec RIGHT IC/CCPV: 1.5 RIGHT VERTEBRAL: antegrade flow RIGHT % STENOSIS: Less than 50 percent according to plaque LEFT ICA PV: 111cm/sec LEFT CCA PV: 73cm/sec LEFT ICA ED: 32 cm/sec LEFT IC/CCPV: 1.9 LEFT VERTEBRAL: antegrade flow LEFT % STENOSIS: Less than 50 percent according to plaque <50% ICA Stenosis: PSV < 125cm/s (EDV < 40cm/s; SVR < 2.0) 50-69% ICA Stenosis: PSV < 125-229cm/s (EDV 40-99cm/s; SVR 2.0-3.9) >70% ICA Stenosis: PSV > 230cm/s (EDV >100cm/s; SVR >4.0) Impression: 1. Less than 50 percent stenosis of the bilateral internal carotid arteries. 2. Moderate bilateral carotid atheromatous calcified plaque, left greater than right. Electronically signed by: Mychal Ho DO (06/14/2019 12:59 PM) [id number]
== END | disposition home or self-care (01) ==
LOC: US 10:27
PROVIDERS: ATTEND Internal Medicine Cardiovascular Disease
DX: I65.23 Occlusion and stenosis of bilateral carotid arteries (principal); I25.10 Atherosclerotic heart disease of native coronary artery without angina pectoris; I63.9 Cerebral infarction, unspecified
CPT/HCPCS: 93880

== ENCOUNTER 2019-08-08 06:02 | Inpatient (IN) | payer MEDICARE ==
[2019-08-08] VITALS (13 sets, daily range): BP systolic 119–158; BP diastolic 68–88
[~2019-08-08] VITALS: Ht 180.3 cm; Wt 89.0 kg
[~2019-08-08 06:02] MED LIST changes: -CLON1TAB11 PO; +CLONAZEPAM1 MG PO
--- NOTE | 2019-08-08 06:21 | PHYS DOC ---
Past Medical History Past Medical History: Anxiety, Depression, GERD, Hypertension, Stroke, Other Additional Past Medical Histor: GOUT, BPH; ulcers, sick sinus syndrome Past Surgical History: Pacemaker, Other Additional Past Surgical Histo: cataract surgery, PACEMAKER; hemorrhoid Smoking: Quit Greater Than 1 Year Alcohol Use: None Drug Use: None Adult General Chief Complaint Chief Complaint: CHEST PAIN HPI HPI Patient is a 78-year-old male with a past history of sick sinus syndrome, status post pacemaker placement, who presents to the emergency department via EMS. The patient reports that since this past Monday, he has been having waxing and wanin g chest discomfort, which seems to be worse with exertion. It is not necessarily associated with shortness of breath. Has had some intermittent nausea. EMS found the patient in what they thought was atrial fibrillation although the patient states he does not have a history of this, although he has had a stroke/TIA in the past and is on a blood thinner, although he is uncertain which one. EMS reportedly administered 324 mg of aspirin, as well as nitroglycerin, after which the patient became unresponsive briefly. He returned to consciousness, and was transported to the emergency department. He does report some residual discomfort across his chest. He denies any radiation of the pain, although complains of some back pain as well. There are no alleviating or exacerbating factors to the patient's symptoms except as noted above. He does not have a known history of coronary artery disease. Review of Systems Review of Systems Constitutional: Denies fever or chills [] Eyes: Denies change in visual acuity, redness, or eye pain [] HENT: Denies nasal congestion or sore throat [] Respiratory: Denies cough or current shortness of breath [] Cardiovascular: No additional information not addressed in HPI [] GI: Denies abdominal pain,vomiting, bloody stools or diarrhea [] : Denies dysuria or hematuria [] Musculoskeletal: Denies back pain or joint pain [] Integument: Denies rash or skin lesions [] Neurologic: Denies headache, focal weakness or sensory changes [] Endocrine: Denies polyuria or polydipsia [] All other systems were reviewed and found to be within normal limits, except as documented in this note. Current Medications Current Medications Current Medications Medications (Trade) Dose Ordered Sig/[place] Start Time Stop Time Status Last Admin Dose Admin Magnesium Sulfate/ Dextrose 100 ml @ 100 mls/hr 1X ONCE 9/12/19 07:15 08/08/19 08:14 Sodium Chloride 1,000 ml @ 1,000 mls/hr Q1H 08/08/19 06:30 08/08/19 07:29 08/08/19 06:29 1,000 MLS/HR Allergies Allergies Allergies Coded Allergies Type Severity Reaction Last Updated Verified No Known Drug Allergies 08/20/16 No Physical Exam Physical Exam PHYSICAL EXAM: CONSTITUTIONAL: Well developed, well nourished HEAD: normocephalic, atraumatic EENT: PERRL, EOMI. Conjunctivae appear pale, sclerae non-icteric; moist mucous membranes. NECK: Supple, non-tender; no meningismus. LUNGS: Lungs CTA, breathing even and unlabored. Normal air movement. HEART: Regular rate and rhythm, no murmur CHEST: No deformity; non-tender ABDOMEN: The abdomen is soft, and non-tender, no masses or bruits. EXTREM: Normal ROM; no deformity, no calf tenderness. Normal pulses palpable in all extremities. There is no pedal edema. SKIN: No rash; no diaphoresis NEURO: Alert; normal speech and cognition; CN's grossly intact; strength grossly intact without focal deficit. BACK: No CVA TTP. Current Patient Data Vital Signs Vital Signs Date Time Temp Pulse Resp B/P (MAP) Pulse Ox O2 Delivery O2 Flow Rate FiO2 08/08/19 06:28 69 115/79 (91) 96 Room Air 08/08/19 06:02 98.1 19 98.1 Lab Values Laboratory Tests Test 08/08/19 06:10 White Blood Count 7.9 x10^3/uL (4.0-11.0) Red Blood Count 5.48 x10^6/uL (4.30-5.70) Hemoglobin 16.1 g/dL (13.0-17.5) Hematocrit 47.0 % (39.0-53.0) Mean Corpuscular Volume 86 fL (79-100) Mean Corpuscular Hemoglobin 29 pg (25-35) Mean Corpuscular Hemoglobin Concent 34 g/dL (31-37) Red Cell Distribution Width 15.2 % (11.5-14.5) H Platelet Count 180 x10^3/uL (140-400) Neutrophils (%) (Auto) 73 % (31-73) Lymphocytes (%) (Auto) 20 % (24-48) L Monocytes (%) (Auto) 6 % (0-9) Eosinophils (%) (Auto) 1 % (0-3) Basophils (%) (Auto) 0 % (0-3) Neutrophils # (Auto) 5.8 x10^3/uL (1.8-7.7) Lymphocytes # (Auto) 1.6 x10^3/uL (1.0-4.8) Monocytes # (Auto) 0.5 x10^3/uL (0.0-1.1) Eosinophils # (Auto) 0.1 x10^3/uL (0.0-0.7) Basophils # (Auto) 0.0 x10^3/uL (0.0-0.2) Prothrombin Time 14.5 SEC (11.7-14.0) H Prothrombin Time INR 1.2 (0.8-1.1) H Sodium Level 141 mmol/L (136-145) Potassium Level 3.8 mmol/L (3.5-5.1) Chloride Level 103 mmol/L (98-107) Carbon Dioxide Level 28 mmol/L (21-32) Anion Gap 10 (6-14) Blood Urea Nitrogen 14 mg/dL (8-26) Creatinine 1.2 mg/dL (0.7-1.3) Estimated GFR (Cockcroft-Gault) 58.4 BUN/Creatinine Ratio 12 (6-20) Glucose Level 121 mg/dL (70-99) H Calcium Level 10.4 mg/dL (8.5-10.1) H Magnesium Level 1.6 mg/dL (1.8-2.4) L Total Bilirubin 1.0 mg/dL (0.2-1.0) Aspartate Amino Transferase (AST) 51 U/L (15-37) H Alanine Aminotransferase (ALT) 88 U/L (16-63) H Alkaline Phosphatase 96 U/L (46-116) Creatine Kinase 113 U/L (39-308) Creatine Kinase MB (Mass) 2.0 ng/mL (0.0-3.6) Creatine Kinase MB Relative Index 1.8 % (0-4) Troponin I Quantitative < 0.017 ng/mL (0.000-0.055) RC-Ldf-Q-Type Natriuretic Peptide 956 pg/mL (0-449) H Total Protein 7.0 g/dL (6.4-8.2) Albumin 4.0 g/dL (3.4-5.0) Albumin/Globulin Ratio 1.3 (1.0-1.7) Lipase 164 U/L (73-393) Thyroid Stimulating Hormone (TSH) 2.056 uIU/mL (0.358-3.74) Laboratory Tests 08/08/19 06:10 Laboratory Tests 08/08/19 06:10 EKG EKG []Normal sinus rhythm a rate of 72 beats for minute, left axis deviation, first- degree AV block, with otherwise normal intervals, left particular hypertrophy is present, there is T-wave inversion anteriorly and inferiorly/laterally, which appears new compared to the patient's prior EKG Radiology/Procedures Radiology/Procedures ER physician preliminary chest x-ray interpretation: No acute disease.[] Course & Med Decision Making Course & Med Decision Making Pertinent Labs and Imaging studies reviewed. (See chart for details) []7:20 AM:The patient's condition remains stable. I spoke with the hosp italist, who accepted the patient to the hospital for further evaluation and treatment. Patient's pacemaker was interrogated, report has not yet been received. Dragon Disclaimer Dragon Disclaimer This electronic medical record was generated, in whole or in part, using a voice recognition dictation system. Departure Departure Impression: Primary Impression: Chest pain Additional Impressions: Abnormal EKG Syncope Disposition: ADMITTED INPATIENT Admitting Physician: HIMS Condition: STABLE Referrals: BATOOL KIMBLE (PCP) Problem Qualifiers YANI COLINDRES MD Aug 08, 2019 06:21
[2019-08-08 06:26] LABS: BASO % 0 % (0-3); EOS # 0.1 x10^3/uL (0.0-0.7); EOS % 1 % (0-3); HEMOGLOBIN 16.1 g/dL (13.0-17.5); LYMPH # 1.6 x10^3/uL (1.0-4.8); LYMPH % 20 % (24-48); MEAN CORPUSCULAR HEMOGLOBIN 29 pg (25-35); MEAN CORPUSCULAR HGB CONC 34 g/dL (31-37); MEAN CORPUSCULAR VOLUME 86 fL (79-100); MONO # 0.5 x10^3/uL (0.0-1.1); MONO % 6 % (0-9); NEUT # 5.8 x10^3/uL (1.8-7.7); NEUT % 73 % (31-73); PLATELET COUNT 180 x10^3/uL (140-400); RED BLOOD COUNT 5.48 x10^6/uL (4.30-5.70); RED CELL DISTRIBUTION WIDTH 15.2 % (11.5-14.5); WHITE BLOOD COUNT 7.9 x10^3/uL (4.0-11.0)
[2019-08-08] MEDS ORDERED: IV NORMAL SALINE 1000ML BAG 1,000 ML IV SCH (06:30)
--- NOTE | 2019-08-08 06:31 | EKG ---
[facility] [address] [place] [address] Test Date: 2019-08-08 Test Time: 06:07:13 Pat Name: COREEN MALIN Department: Room: Gender: M Home Service Director: : 1940 Requested By: YANI COLINDRES Order Number: [id number] Reading MD: Measurements Intervals [place] Rate: 71 P: 0 GA: 272 QRS: -15 QRSD: 96 T: -74 QT: 392 QTc: 430 Interpretive Statements SINUS RHYTHM COMPLEX(ES) WITH ABERRANT INTRAVENTRICULAR CONDUCTION PROLONGED GA INTERVAL LEFTWARD AXIS LVH WITH REPOLARIZATION ABNORMALITY ABNORMAL ECG No previous ECG available for comparison
[2019-08-08 06:34] LABS: CALCIUM 10.4 mg/dL (8.5-10.1); CREATININE 1.2 mg/dL (0.7-1.3); GFR 58.4; POTASSIUM 3.8 mmol/L (3.5-5.1)
[2019-08-08 06:35] LABS: PROTHROMBIN TIME PATIENT 14.5 SEC (11.7-14.0)
[2019-08-08 06:40] LABS: ALBUMIN/GLOBULIN RATIO 1.3 (1.0-1.7); MAGNESIUM 1.6 mg/dL (1.8-2.4)
[2019-08-08] MEDS ORDERED: MAGNESIUM SULFATE 1GM 100 ML IV ONE (07:15)
--- NOTE | 2019-08-08 07:53 | RAD ---
Examination: PORTABLE CHEST 1V History: Chest pain Comparison/Correlation: 02/03/2019 Findings: Portable upright frontal view of the chest was obtained. Dual-lead left-sided pacemaker is present. Heart size and pulmonary vasculature are normal. No infiltrate or pleural effusion. No pneumothorax. Bony structures are unremarkable. Impression: No active disease. Electronically signed by: Austen Schwartz MD (08/08/2019 7:50 AM) [facility]
[2019-08-08] MEDS ORDERED: HEPARIN 25,000UTS/500ML PREMIX 500 ML IV PRN (08:15)
[2019-08-08] MEDS ORDERED: HEPARIN for IV BOLUS 10,000 UNIT/10 ML VIAL. IV PRN (08:15)
[2019-08-08] MEDS ORDERED: ANTI-COAG MONITOR BY PHARMACY. MC PRN (08:30)
--- NOTE | 2019-08-08 08:48 | PDOC1 ---
History and Physical Date of Admission Date of Admission DATE: 08/08/19 TIME: 08:47 Identification/Chief Complaint Chief Complaint passed out ems en route, low HR, low BP., hx syncope Source Source: Caregiver, Chart review, Patient History of Present Illness History of Present Illness 78 white male, lives with , has past admissions here for syncope, SSS vs vaso vagal, has indwelling pacer placed by our group here for that same reason, Admitted 02/04 for the same, tilt table test normal, NOW, syncope at home and maybe CP with SOA x 4 days now, thought was GERD (has hx GERD), takes some GERD meds, EKG Some dynamic changes, CXR normal, takes plavix, metoprolol BID and losartan 25 at home, EMS gave ntg SL en route and he went hypotensive and bradyd down, Dw cards, LHC later, heparin gtt bec of ekg changes and concerning clincal sxs - agreeable and consented, full code dw , PE WNL< paced, NO personal hx CAD yet Past Medical History Cardiovascular: HTN, Syncope, Hyperlipidemia Pulmonary: Bronchitis CENTRAL NERVOUS SYSTEM: TIA GI: GERD Heme/Onc: No pertinent hx Hepatobiliary: No pertinent hx Psych: Anxiety, Depression Musculoskeletal: Osteoarthritis Rheumatologic: No pertinent hx Infectious disease: No pertinent hx Renal/: Benign prostatic enlarg. Endocrine: No pertinent hx Past Surgical History Past Surgical History: Pacemaker, Cataract Removal, Other Family History Family History: Heart Disease, Hypertension Social History Smoke: No ALCOHOL: none Drugs: None Current Problem List Problem List Problems Medical Problems: (1) Abnormal EKG Status: Acute (2) Chest pain Status: Acute Current Medications Current Medications Current Medications Sodium Chloride 1,000 ml @ 1,000 mls/hr Q1H IV Last administered on 08/08/19at 06:29; Start 08/08/19 at 06:30; Stop 08/08/19 at 07:29; Status DC Magnesium Sulfate/ Dextrose 100 ml @ 100 mls/hr 1X ONCE IV ; Start 08/08/19 at 07:15; Stop 08/08/19 at 08:14; Status DC Heparin Sodium/ Dextrose 500 ml @ 20.688 mls/ hr CONT PRN IV SEE COMMENTS; Start 08/08/19 at 08:15 Heparin Sodium (Porcine) (Heparin Sodium) 2,150 unit PRN Q6HRS PRN IV FOR UFH LEVEL LESS THAN 0.2; Start 08/08/19 at 08:15 Info (Anti-Coagulation Monitoring By Pharmacy) 1 each PRN DAILY PRN MC SEE COMMENTS; Start 08/08/19 at 08:30 Allopurinol (Zyloprim) 300 mg DAILY PO ; Start 08/08/19 at 09:00; Status UNV Clopidogrel Bisulfate (Plavix) 75 mg DAILY PO ; Start 08/08/19 at 09:00; Status UNV Losartan Potassium (Cozaar) 25 mg DAILY PO ; Start 08/08/19 at 09:00; Status UNV Sucralfate (Carafate) 1 gm BID PO ; Start 08/08/19 at 09:00; Status UNV Tamsulosin HCl (Flomax) 0.4 mg DAILY PO ; Start 08/08/19 at 09:00; Status UNV Non-Formulary Medication (Clonazepam ) 1 mg DAILY PO ; Start 08/08/19 at 09:00; Status UNV Non-Formulary Medication (Fluoxetine Hcl ) 40 mg DAILY PO ; Start 08/08/19 at 09:00; Status UNV Non-Formulary Medication (Lansoprazole (Prevacid)) 1 cap DAILY PO ; Start 08/08/19 at 09:00; Status UNV Non-Formulary Medication (Simvastatin ) 80 mg DAILY PO ; Start 08/08/19 at 09:00; Status UNV Active Scripts Active Metoprolol Succinate ( Xl ) (Metoprolol Succinate) 25 Mg Tab.er.24h 0.5 Tab PO DAILY Losartan Potassium 50 Mg Tablet 25 Mg PO DAILY 30 Days Reported Prevacid (Lansoprazole) 15 Mg Capsule.dr 1 Cap PO DAILY Clonazepam 1 Mg Tablet 1 Mg PO DAILY Clopidogrel (Clopidogrel Bisulfate) 75 Mg Tablet 75 Mg PO DAILY Tamsulosin Hcl 0.4 Mg Cap.er.24h 0.4 Mg PO DAILY Simvastatin 80 Mg Tablet 80 Mg PO DAILY Fluoxetine Hcl 40 Mg Capsule 40 Mg PO DAILY Carafate (Sucralfate) 1 Gm Tablet 1 Gm PO BID Allopurinol 300 Mg Tablet 300 Mg PO DAILY Allergies Allergies: Coded Allergies: No Known Drug Allergies (Unverified , 08/20/16) ROS Review of System syncope, soa, chest discomfort earlier on, none now, the rest 14 pt neg Physical Exam General: Alert, Oriented X3, Cooperative, No acute distress HEENT: Atraumatic, PERRLA, EOMI Lungs: Clear to auscultation, Normal air movement Cardiovascular: S1, S2, Other (indwelling pacer) Abdomen: Normal bowel sounds, Soft, No tenderness, No hepatosplenomegaly, No masses Male Genitals Exam: normal genitalia, normal prostate Rectal Exam: not examined PELVIC: Nml ext genitalia Extremities: No clubbing, No cyanosis, No edema, Normal pulses, No tenderness/swelling Skin: No rashes, No breakdown, No significant lesion Neuro: Normal gait, Normal speech, Strength at 5/5 X4 ext, Normal tone, Sensation intact, Cranial nerves 3-12 NL, Reflexes 2+ Psych/Mental Status: Mental status NL, Mood NL Vitals Vitals Vital Signs Date Time Temp Pulse Resp B/P (MAP) Pulse Ox O2 Delivery O2 Flow Rate FiO2 08/08/19 07:43 68 108/70 (83) 97 Room Air 08/08/19 06:02 98.1 19 98.1 Labs Labs Laboratory Tests Test 08/08/19 06:10 White Blood Count 7.9 x10^3/uL (4.0-11.0) Red Blood Count 5.48 x10^6/uL (4.30-5.70) Hemoglobin 16.1 g/dL (13.0-17.5) Hematocrit 47.0 % (39.0-53.0) Mean Corpuscular Volume 86 fL (79-100) Mean Corpuscular Hemoglobin 29 pg (25-35) Mean Corpuscular Hemoglobin Concent 34 g/dL (31-37) Red Cell Distribution Width 15.2 % (11.5-14.5) Platelet Count 180 x10^3/uL (140-400) Neutrophils (%) (Auto) 73 % (31-73) Lymphocytes (%) (Auto) 20 % (24-48) Monocytes (%) (Auto) 6 % (0-9) Eosinophils (%) (Auto) 1 % (0-3) Basophils (%) (Auto) 0 % (0-3) Neutrophils # (Auto) 5.8 x10^3/uL (1.8-7.7) Lymphocytes # (Auto) 1.6 x10^3/uL (1.0-4.8) Monocytes # (Auto) 0.5 x10^3/uL (0.0-1.1) Eosinophils # (Auto) 0.1 x10^3/uL (0.0-0.7) Basophils # (Auto) 0.0 x10^3/uL (0.0-0.2) Prothrombin Time 14.5 SEC (11.7-14.0) Prothromb Time International Ratio 1.2 (0.8-1.1) Sodium Level 141 mmol/L (136-145) Potassium Level 3.8 mmol/L (3.5-5.1) Chloride Level 103 mmol/L (98-107) Carbon Dioxide Level 28 mmol/L (21-32) Anion Gap 10 (6-14) Blood Urea Nitrogen 14 mg/dL (8-26) Creatinine 1.2 mg/dL (0.7-1.3) Estimated GFR (Cockcroft-Gault) 58.4 BUN/Creatinine Ratio 12 (6-20) Glucose Level 121 mg/dL (70-99) Calcium Level 10.4 mg/dL (8.5-10.1) Magnesium Level 1.6 mg/dL (1.8-2.4) Total Bilirubin 1.0 mg/dL (0.2-1.0) Aspartate Amino Transf (AST/SGOT) 51 U/L (15-37) Alanine Aminotransferase (ALT/SGPT) 88 U/L (16-63) Alkaline Phosphatase 96 U/L (46-116) Creatine Kinase 113 U/L (39-308) Creatine Kinase MB (Mass) 2.0 ng/mL (0.0-3.6) Creatine Kinase MB Relative Index 1.8 % (0-4) Troponin I Quantitative < 0.017 ng/mL (0.000-0.055) GG-Uqa-X-Type Natriuretic Peptide 956 pg/mL (0-449) Total Protein 7.0 g/dL (6.4-8.2) Albumin 4.0 g/dL (3.4-5.0) Albumin/Globulin Ratio 1.3 (1.0-1.7) Lipase 164 U/L (73-393) Thyroid Stimulating Hormone (TSH) 2.056 uIU/mL (0.358-3.74) Laboratory Tests Test 08/08/19 06:10 White Blood Count 7.9 x10^3/uL (4.0-11.0) Red Blood Count 5.48 x10^6/uL (4.30-5.70) Hemoglobin 16.1 g/dL (13.0-17.5) Hematocrit 47.0 % (39.0-53.0) Mean Corpuscular Volume 86 fL (79-100) Mean Corpuscular Hemoglobin 29 pg (25-35) Mean Corpuscular Hemoglobin Concent 34 g/dL (31-37) Red Cell Distribution Width 15.2 % (11.5-14.5) Platelet Count 180 x10^3/uL (140-400) Neutrophils (%) (Auto) 73 % (31-73) Lymphocytes (%) (Auto) 20 % (24-48) Monocytes (%) (Auto) 6 % (0-9) Eosinophils (%) (Auto) 1 % (0-3) Basophils (%) (Auto) 0 % (0-3) Neutrophils # (Auto) 5.8 x10^3/uL (1.8-7.7) Lymphocytes # (Auto) 1.6 x10^3/uL (1.0-4.8) Monocytes # (Auto) 0.5 x10^3/uL (0.0-1.1) Eosinophils # (Auto) 0.1 x10^3/uL (0.0-0.7) Basophils # (Auto) 0.0 x10^3/uL (0.0-0.2) Prothrombin Time 14.5 SEC (11.7-14.0) Prothromb Time International Ratio 1.2 (0.8-1.1) Sodium Level 141 mmol/L (136-145) Potassium Level 3.8 mmol/L (3.5-5.1) Chloride Level 103 mmol/L (98-107) Carbon Dioxide Level 28 mmol/L (21-32) Anion Gap 10 (6-14) Blood Urea Nitrogen 14 mg/dL (8-26) Creatinine 1.2 mg/dL (0.7-1.3) Estimated GFR (Cockcroft-Gault) 58.4 BUN/Creatinine Ratio 12 (6-20) Glucose Level 121 mg/dL (70-99) Calcium Level 10.4 mg/dL (8.5-10.1) Magnesium Level 1.6 mg/dL (1.8-2.4) Total Bilirubin 1.0 mg/dL (0.2-1.0) Aspartate Amino Transf (AST/SGOT) 51 U/L (15-37) Alanine Aminotransferase (ALT/SGPT) 88 U/L (16-63) Alkaline Phosphatase 96 U/L (46-116) Creatine Kinase 113 U/L (39-308) Creatine Kinase MB (Mass) 2.0 ng/mL (0.0-3.6) Creatine Kinase MB Relative Index 1.8 % (0-4) Troponin I Quantitative < 0.017 ng/mL (0.000-0.055) WM-Wzv-L-Type Natriuretic Peptide 956 pg/mL (0-449) Total Protein 7.0 g/dL (6.4-8.2) Albumin 4.0 g/dL (3.4-5.0) Albumin/Globulin Ratio 1.3 (1.0-1.7) Lipase 164 U/L (73-393) Thyroid Stimulating Hormone (TSH) 2.056 uIU/mL (0.358-3.74) VTE Prophylaxis Ordered VTE Prophylaxis Devices: Yes VTE Pharmacological Prophylaxi: Yes Assessment/Plan Assessment/Plan 1. SYncope 2. CP 3. Bradycardia and hypotension post NTG SL en route via EMS 4. SSS indwelling pacer on plavix 5. REcent normal tilt table (02/04/19) 6. DYslipidmeia on statin 7., EKG changes PLAN: CVC bed, 2 MN NPO, heparin gtt, LHC later 11 AM Hold BB and losartan for now sec to memo and hypotension few hrs ago FULL CODE dw RN, cards, and I hev reconciled home meds Hold off any NTG SL anymore LANDEN RICHARDS MD Aug 08, 2019 08:48
[2019-08-08] MEDS ORDERED: ONDANSETRON PF 4 MG/2 ML VIAL. IV PRN (09:00)
[2019-08-08] MEDS ORDERED: IV NORMAL SALINE 1000ML BAG 1,000 ML IV ONE (09:00)
[2019-08-08] MEDS ORDERED: ACETAMINOPHEN 500 MG TABLET PO PRN (09:00)
[2019-08-08] MEDS ORDERED: ACETAMINOPHEN/CODEINE 300/30MG TABLET. PO PRN (09:00)
[2019-08-08 09:12] LABS: CHOLESTEROL/HDL RATIO 2.1
[2019-08-08] MEDS ORDERED: LIDOCAINE 1% PF 2 ML VIAL. ONE (09:13)
[2019-08-08] MEDS ORDERED: IODIXANOL 320 MG/ML 100 ML VIAL. ONE ×2 (09:13→12:06)
--- NOTE | 2019-08-08 09:16 | PDOC2 ---
LUCY LOZA DE IONIZER OPERATOR 08/08/19 0916: CARDIAC CONSULT DATE OF CONSULT Date of Consult DATE: 08/08/19 TIME: 09:01 REASON FOR CONSULT Reason for Consult: Chest pain REFERRING PHYSICIAN Referring Physician: Beto SOURCE Source: Chart review, Patient HISTORY OF PRESENT ILLNESS HISTORY OF PRESENT ILLNESS This is a pleasant 78 yo male admitted for complains of chest pain. Reports that he has been having symptoms since Monday. Reports that it started off Monday noon after eating. [place] indigestion and nausea. For about 2 days and then started having shoulder discomfort and achiness to his back. He was having intermittent sharp chest pain and felt that his heart was beating hard. Has been having exertional CP. Last night he had all these symptoms including diarrhea and nausea and it was unrelieved by any medications until given ASA and NTG by EMS. Also reports for chronic diarrhea but this is more related to his diet having no fiber and drinks a lot of carbonated drinks with high carb diet. No fever or chills. His stool is normal but loose by his description and no recent camping or family member having GI symptoms. He also has been having almost daily heartburn. PAST MEDICAL HISTORY Cardiovascular: HTN, Syncope, Hyperlipidemia, Other (SSS; moderate carotid artery disease) Pulmonary: No pertinent hx CENTRAL NERVOUS SYSTEM: CVA GI: GERD Heme/Onc: No pertinent hx Hepatobiliary: No pertinent hx Psych: Anxiety Musculoskeletal: Osteoarthritis Rheumatologic: No pertinent hx Infectious disease: No pertinent hx ENT: No pertinent hx Renal/: Benign prostatic enlarg. Endocrine: No pertinent hx Dermatology: No pertinent hx PAST SURGICAL HISTORY Past Surgical History: Pacemaker, Cataract Removal FAMILY HISTORY Family History: Coronary Artery Disease SOCIAL HISTORY Smoke: Quit (remotely) ALCOHOL: none Drugs: None Lives: with Family CURRENT MEDICATIONS CURRENT MEDICATIONS Current Medications Medications (Trade) Dose Ordered Sig/[place] Route PRN Reason Start Time Stop Time Status Last Admin Dose Admin Sodium Chloride 1,000 ml @ 1,000 mls/hr Q1H IV 08/08/19 06:30 08/08/19 07:29 DC 08/08/19 06:29 ALLERGIES ALLERGIES: Coded Allergies: No Known Drug Allergies (Unverified , 08/20/16) ROS Review of System 14 point ROS evaluated with pertinent positives noted per HPI PHYSICAL EXAM General: Alert, Oriented X3, Cooperative, No acute distress HEENT: Atraumatic, Mucous membr. moist/pink Lungs: Clear to auscultation, Normal air movement Heart: Regular rate (SR), Normal S1, Normal S2, Other (EMILEE border 2/6 diastolic murmur) Abdomen: Soft, No tenderness Extremities: No cyanosis, No edema Skin: No breakdown, No significant lesion Neuro: Normal speech, Sensation intact Psych/Mental Status: Mental status NL, Mood NL MUSCULOSKELETAL: Osteoarthritic changes both hands VITALS/I&O VITALS/I&O: Vital Signs Date Time Temp Pulse Resp B/P (MAP) Pulse Ox O2 Delivery O2 Flow Rate FiO2 08/08/19 07:43 68 108/70 (83) 97 Room Air 08/08/19 06:02 98.1 19 98.1 I & O 08/07/19 08/07/19 08/08/19 15:00 23:00 07:00 Intake Total 1000 ml Balance 1000 ml LABS Lab: Laboratory Tests Test 08/08/19 06:10 White Blood Count 7.9 x10^3/uL (4.0-11.0) Red Blood Count 5.48 x10^6/uL (4.30-5.70) Hemoglobin 16.1 g/dL (13.0-17.5) Hematocrit 47.0 % (39.0-53.0) Mean Corpuscular Volume 86 fL (79-100) Mean Corpuscular Hemoglobin 29 pg (25-35) Mean Corpuscular Hemoglobin Concent 34 g/dL (31-37) Red Cell Distribution Width 15.2 % (11.5-14.5) H Platelet Count 180 x10^3/uL (140-400) Neutrophils (%) (Auto) 73 % (31-73) Lymphocytes (%) (Auto) 20 % (24-48) L Monocytes (%) (Auto) 6 % (0-9) Eosinophils (%) (Auto) 1 % (0-3) Basophils (%) (Auto) 0 % (0-3) Neutrophils # (Auto) 5.8 x10^3/uL (1.8-7.7) Lymphocytes # (Auto) 1.6 x10^3/uL (1.0-4.8) Monocytes # (Auto) 0.5 x10^3/uL (0.0-1.1) Eosinophils # (Auto) 0.1 x10^3/uL (0.0-0.7) Basophils # (Auto) 0.0 x10^3/uL (0.0-0.2) Prothrombin Time 14.5 SEC (11.7-14.0) H Prothrombin Time INR 1.2 (0.8-1.1) H Sodium Level 141 mmol/L (136-145) Potassium Level 3.8 mmol/L (3.5-5.1) Chloride Level 103 mmol/L (98-107) Carbon Dioxide Level 28 mmol/L (21-32) Anion Gap 10 (6-14) Blood Urea Nitrogen 14 mg/dL (8-26) Creatinine 1.2 mg/dL (0.7-1.3) Estimated GFR (Cockcroft-Gault) 58.4 BUN/Creatinine Ratio 12 (6-20) Glucose Level 121 mg/dL (70-99) H Calcium Level 10.4 mg/dL (8.5-10.1) H Magnesium Level 1.6 mg/dL (1.8-2.4) L Total Bilirubin 1.0 mg/dL (0.2-1.0) Aspartate Amino Transferase (AST) 51 U/L (15-37) H Alanine Aminotransferase (ALT) 88 U/L (16-63) H Alkaline Phosphatase 96 U/L (46-116) Creatine Kinase 113 U/L (39-308) Creatine Kinase MB (Mass) 2.0 ng/mL (0.0-3.6) Creatine Kinase MB Relative Index 1.8 % (0-4) Troponin I Quantitative < 0.017 ng/mL (0.000-0.055) RK-Jjb-F-Type Natriuretic Peptide 956 pg/mL (0-449) H Total Protein 7.0 g/dL (6.4-8.2) Albumin 4.0 g/dL (3.4-5.0) Albumin/Globulin Ratio 1.3 (1.0-1.7) Lipase 164 U/L (73-393) Thyroid Stimulating Hormone (TSH) 2.056 uIU/mL (0.358-3.74) Laboratory Tests 08/08/19 06:10 Laboratory Tests 08/08/19 06:10 ECHOCARDIOGRAM ECHOCARDIOGRAM <Conclusion> Basal inferior wall hypokinesis. The Ejection Fraction is 40-45%. Transmitral Doppler flow pattern is Grade I-abnormal relaxation pattern. Pacer lead noted in RV/RA. Trace aortic regurgitation. Mild mitral regurgitation. Trace tricuspid regurgitation. There is no evidence of significant pericardial effusion. DATE: 12/03/18 1417 ASSESSMENT/PLAN ASSESSMENT/PLAN 1. Chest pain: compatible with unstable angina/ACS with dynamic EKG changes 2. HTN: controlled 3. HLP 4. Hx of cardiomyopathy: last noted EF was 40-45%, compensated 5. PPM in situ: due to SSS. Biotronik. Normal functioning device per check and no associated arrhythmias. 44% V paced 6. GERD exacerbation 7. Chronic diarrhea: diet related 8. Hx of CVA Recommendations 1. Replace Mg and start on heparin 2. ASA given by EMS 3. LHC today, risks and benefits discussed with and pt and agreeable to proceed 4. Discussed diet modification in regards to his diarrhea and GERD. 5. Start on pepcid. 6. Will reeval cardiac meds post LHC 7. TTE, TSH, lipids HARDIK BRAGG MD 08/08/19 1708: CARDIAC CONSULT ASSESSMENT/PLAN ASSESSMENT/PLAN Patient seen and examined. Agree with INDUSTRIAL ILLUMINATING ENGINEER's assessment and plan. Clinical picture consistent with unstable angina. Myocardial infarction has been ruled out. Device check showed normal pacemaker function. Chronic systolic heart failure clinically well compensated. Agree with cardiac catheterization for definitive evaluation. Thank you for your consultation. LUCY LOZA APRN Aug 08, 2019 09:16 HARDIK BRAGG MD Aug 08, 2019 17:08
[2019-08-08] MEDS: CLOPIDOGREL BISULFATE 75 MG TABLET PO SCH (09:30)
[2019-08-08] MEDS: SUCRALFATE 1 GM TABLET. PO SCH ×2 (09:30→20:18)
[2019-08-08] MEDS: LOSARTAN POTASSIUM 25 MG TABLET. PO SCH (09:59)
[2019-08-08] MEDS ORDERED: MIDAZOLAM HCL/PF 2 MG/2 ML VIAL. ONE ×2 (10:38→11:22)
[2019-08-08] MEDS ORDERED: HEPARIN for IV BOLUS 10,000 UNIT/10 ML VIAL. ONE (10:38)
[2019-08-08] MEDS ORDERED: fentaNYL PF VIAL 100 MCG/2 ML VIAL ONE (10:38)
[2019-08-08] MEDS ORDERED: VERAPAMIL 5 MG/2 ML VIAL. ONE (10:38)
[2019-08-08] MEDS ORDERED: NITROGLYCERIN 200 MCG/2 ML SYRINGE FOR CATH/VASC LAB. ONE (10:39)
[2019-08-08] MEDS ORDERED: MIDAZOLAM HCL/PF 2 MG/2 ML VIAL. IV ONE (10:45)
[2019-08-08] MEDS ORDERED: HEPARIN for IV BOLUS 10,000 UNIT/10 ML VIAL. IART ONE (10:45)
[2019-08-08] MEDS ORDERED: VERAPAMIL 5 MG/2 ML VIAL. IART ONE (10:45)
[2019-08-08] MEDS ORDERED: fentaNYL PF VIAL 100 MCG/2 ML VIAL IV ONE (10:45)
[2019-08-08] MEDS ORDERED: IODIXANOL 320 MG/ML 100 ML VIAL. IART ONE (10:45)
[2019-08-08] MEDS ORDERED: LIDOCAINE 1% PF 2 ML VIAL. INJ ONE (10:45)
[2019-08-08] MEDS ORDERED: NITROGLYCERIN 200 MCG/2 ML SYRINGE FOR CATH/VASC LAB. IART ONE (10:45)
[2019-08-08] MEDS ORDERED: CONTRAST GIVEN. MC PRN (11:00)
[2019-08-08] MEDS ORDERED: ADENOSINE 90 MG/30 ML VIAL. IV ONE (11:55)
[2019-08-08] MEDS ORDERED: LIDOCAINE 1% Multi-Dose 20 ML VIAL. ONE (12:09)
[2019-08-08] MEDS ORDERED: LIDOCAINE 1% Multi-Dose 20 ML VIAL. INJ ONE (12:15)
[2019-08-08] MEDS ORDERED: ADENOSINE 100MCG/ML SYRINGE. INT CORON ONE (12:15)
[2019-08-08] MEDS ORDERED: HEPARIN for IV BOLUS 10,000 UNIT/10 ML VIAL. IV ONE (12:15)
--- NOTE | 2019-08-08 12:59 | PDOC ---
MODERATE SEDATION ASSESSMENT RISKS/ALTERNATIVES Risks/Alternatives Risks and alternatives of this type of sedation and procedure discussed with: RISK/ALTERNATIVES: Patient H & P ON CHART H & P H & P on chart and reviewed for co-morbid conditions and appropriate labs. H&P ON CHART: Yes STATUS PREG STATUS ASSESSED: N/A MEDS/ALLERGIES REVIEWED Meds/Allergies Reviewed Medications and Allergies including time and route of recently administered narcotics and sedatives. MEDS/ALLERGIES REVIEWED: Yes ASA RATING ASA RATING: II AIRWAY ASSESSMENT Airway Assessment Airway patency, oral function limitations, presence of caps, crowns, dentures, partials, and ability to extend neck assessed. AIRWAY ASSESSMENT: Yes MALLAMPATI SCORE MALLAMPATI SCORE: II PRE-SEDATION ASSESSMENT PRE-SEDATION ASSESSMENT: Yes HARDIK BRAGG MD Aug 08, 2019 12:59
[2019-08-08] MEDS ORDERED: ADENOSINE 90 MG in IV NORMAL SALINE 50ML 90 ML IV ONE (13:00)
[2019-08-08] MEDS ORDERED: NITROGLYCERIN SUBLINGUAL 0.4 MG BOTTLE OF 25. SL PRN (13:00)
--- NOTE | 2019-08-08 13:24 | NUR ---
SS following for discharge planning. SS reviewed pt chart. Pt is from home with spouse and is currently on room air. No discharge needs noted at this time. SS will continue to follow for discharge planning.
[2019-08-08] MEDS: IV 1/2 NORMAL SALINE 1,000 ML IV SCH (14:06)
[2019-08-08] MEDS: TAMSULOSIN 0.4 MG CAP.ER.24H. PO SCH (15:36)
[2019-08-08] MEDS: ALLOPURINOL 300 MG TABLET. PO SCH (15:36)
[2019-08-08] MEDS: FLUoxetine HCL 20 MG CAPSULE PO SCH (15:36)
[2019-08-08] MEDS: clonazePAM 0.5 MG TABLET PO SCH (15:37)
[2019-08-08] MEDS: PANTOPRAZOLE 40 MG TABLET.DR. PO SCH (15:41)
--- NOTE | 2019-08-08 17:11 | CARD ---
MR#: [id number] Date of Study: 08/08/2019 Ordering Physician: LUCY LOZA, Referring Physician: LUCY LOZA Tech: Katharine Dietz YUE APPROVED REPORT EXAM: Two-dimensional and M-mode echocardiogram with Doppler and color Doppler. Other Information Quality : AverageHR: 70bpm Rhythm : NSR INDICATION Chest Pain 2D DIMENSIONS RVDd3.0 (2.9-3.5cm)Left Atrium(2D)4.6 (1.6-4.0cm) IVSd1.2 (0.7-1.1cm)Aortic Root(2D)2.9 (2.0-3.7cm) LVDd5.5 (3.9-5.9cm)LVOT Diameter2.0 (1.8-2.4cm) PWd1.1 (0.7-1.1cm)LVDs4.2 (2.5-4.0cm) FS (%) 23.6 %SV69.0 ml LVEF(%)45.0 (>50%) M-Mode DIMENSIONS Left Atrium(MM)4.86 (2.5-4.0cm)Aortic Root3.05 (2.2-3.7cm) Aortic Valve AoV Peak Km.106.7cm/sAoV VTI21.9cm AO Peak GR.4.5mmHgLVOT VTI 15.15cm AO Mean GR.3mmHgAVA (VTI)2.20cm2 AI P 1/2 [id number] Mitral Valve MV E Uhkckefp64.6cm/sMV E Peak Gr.111mmHg MV DECEL [id number] A Xtoilrga77.1cm/s E/A Ratio0.7MV A Lvmqqzgg90ke Tricuspid Valve TR P. Yiaehahc163jr/sRAP WVRVHHJI7pfOo TR Peak Gr.67qyMlTAEY62fiGk LEFT VENTRICLE The left ventricle is normal size. There is mild concentric left ventricular hypertrophy. The left ve ntricular systolic function is mildly impaired. The Ejection Fraction is 40-45%. Abnormal septal xu on probably from pacemaker activation. Transmitral Doppler flow pattern is Grade I-abnormal relaxatio n pattern. RIGHT VENTRICLE The right ventricle is normal size. There is normal right ventricular wall thickness. The right ventr icular systolic function is normal. Pacer lead noted in RV/RA. ATRIA The left atrium is mildly dilated. The right atrium size is normal. The interatrial septum is intact with no evidence for an atrial septal defect or patent foramen ovale as noted on 2-D or Doppler imagi ng. AORTIC VALVE The aortic valve is trileaflet. The aortic valve is mildly calcified. Doppler and Color Flow revealed mild aortic regurgitation. There is no significant aortic valvular stenosis. There is no aortic valv ular vegetation. MITRAL VALVE The mitral valve is thickened but opens well. There is no evidence of mitral valve prolapse. There is no mitral valve stenosis. Doppler and Color-flow revealed mild mitral regurgitation. TRICUSPID VALVE The tricuspid valve is normal in structure and function. Doppler and Color Flow revealed mild tricusp id regurgitation. The PA pressure was estimated at 25 mmHg. There is no tricuspid valve prolapse or v egetation. There is no tricuspid valve stenosis. PULMONIC VALVE The pulmonic valve is not well visualized. GREAT VESSELS The aortic root is normal in size. The ascending aorta is normal in size. The IVC is normal in size a nd collapses >50% with inspiration. PERICARDIAL EFFUSION There is no evidence of significant pericardial effusion. Critical Notification Critical Value: No <Conclusion> The left ventricular systolic function is mildly impaired. The Ejection Fraction is 40-45%. Abnormal septal motion probably from pacemaker activation. Transmitral Doppler flow pattern is Grade I-abnormal relaxation pattern. Pacer lead noted in RV/RA. Mild aortic regurgitation. Mild mitral regurgitation. Mild tricuspid regurgitation. The PA pressure was estimated at 25 mmHg. There is no evidence of significant pericardial effusion. Signed by : Buzz Ordaz, Electronically Approved : 08/08/2019 17:10:48
--- NOTE | 2019-08-08 17:35 | CARD ---
MR#: [id number] Date of Study: 08/08/2019 Ordering Physician: LUCY LOZA, Referring Physician: LUCY LOZA, Tech: RT Richard (R) ANDREEA APPROVED REPORT Technologist: RT Richard (R) ANDREEA Nurse: Genie Guardado R.N. Procedure(s) performed: 1. Left heart catheterization and selective coronary angiography 2. Fractional flow reserve measurement to left anterior descending and left circumflex artery stenos es. FLUORO TIME: 24.8 MIN DOSE:118 Gycm2 Moderate Sedation: 97 min Contrast:180ml INDICATION The indication(s) include : unstable angina . PROCEDURE NARRATIVE After explaining the risks, benefits and alternative options, informed consent was obtained from mario ent. Patient was brought to the cardiac Workforce Specialist and right wrist was prepped and draped in the usual fashion after confirming a positive modified Dedrick's test. Arterial access was obtained in the [facility] radial artery and a 6 Fijian sheath was inserted. After initial attempts at engaging the coronary arteries with 6 Fijian Ronaldo catheter were unsuccessful, 6 [place]ijian JL 3.5 and 6 Fijian JR4 catheters were used to perform selective angiography of the left and right coronary arteries. LVEDP and transao rtic gradients were measured. Patient was found to have angiographically borderline significant steno ses involving the left anterior descending artery and obtuse marginal branch of left circumflex arter y. Hence we decided to perform physiologic assessment using fractional flow reserve (FFR measurement) . Attempts to engage the left main coronary artery using 6 Fijian XB 3.5 guide catheter followed by 6 F rench JL4 guide catheter were unsuccessful due to significant tortuosity in the subclavian artery imp eding torquability of catheters. Hence we decided to access patient's common femoral artery for comp leting the procedure. 10 mL of 2% lidocaine was infiltrated into the skin and subcutaneous tissues of the right groin for local anesthesia. Arterial access was obtained in the right common femoral arter y and a 6 Fijian sheath was inserted. 6 Fijian JL4 guide catheter was then used to engage the left ma in coronary artery. The stenosis in the left anterior descending artery was crossed with a [place] Ve rrata PressureWire and FFR measurement was made after administering intravenous adenosine per protoco l. This was physiologically insignificant at 0.91. Subsequently, the wire was used to cross the lesio n in the obtuse marginal branch of left circumflex artery and FFR measurement was made that was also insignificant a 0.94. Hence no interventions were performed. Patient tolerated the procedure well. He mostasis in the right wrist was achieved using TR band and groin using Angio-Seal. There were no imme diate complications. FINDINGS 1. Hemodynamics: Left ventricular end-diastolic pressure of 25 mmHg. No pullback gradient across th e aortic valve. 2. Coronary angiography: a. The left main coronary artery arose from the left sinus of Valsalva, gave rise to the left anteri or descending and left circumflex arteries and did not show any significant stenosis. b. The left anterior descending artery showed 50-60% stenosis in the midsegment there was physiologi nubia insignificant based on FFR measurement of 0.91. c. The left circumflex artery showed 50% stenosis in the first obtuse marginal branch that was physi ologically insignificant based on FFR measurement of 0.94. d. The right coronary artery was a large and dominant vessel arising from the right sinus of Valsalv a that did not show any significant stenosis. Conclusion Nonobstructive coronary artery disease. Patient had 50-60% stenosis of left anterior descending arter y and 50% stenosis of obtuse marginal branch of left circumflex artery both of which were physiologic ally insignificant based on FFR measurement. Recommendations Medical Therapy Signed by : Buzz Ordaz, Electronically Approved : 08/08/2019 17:35:05
[2019-08-08] MEDS ORDERED: ATORVASTATIN CALCIUM 40 MG TABLET. PO SCH (21:00)
[2019-08-08] MEDS ORDERED: FAMOTIDINE 20 MG TABLET. PO SCH (21:00)
[2019-08-08] MEDS ORDERED: SIMVASTATIN 40 MG TABLET. PO SCH (21:00)
[2019-08-09 02:57] VITALS: BP 134/83
[2019-08-09] MEDS: IV 1/2 NORMAL SALINE 1,000 ML IV SCH (05:39)
[2019-08-09 07:00] VITALS: BP 145/77
[2019-08-09] MEDS: PANTOPRAZOLE 40 MG TABLET.DR. PO SCH (08:13)
[2019-08-09] MEDS ORDERED: amLODIPine BESYLATE 5 MG TABLET PO SCH (09:00)
[2019-08-09] MEDS: CLOPIDOGREL BISULFATE 75 MG TABLET PO SCH (09:34)
[2019-08-09] MEDS: FLUoxetine HCL 20 MG CAPSULE PO SCH (09:34)
[2019-08-09] MEDS: clonazePAM 0.5 MG TABLET PO SCH (09:34)
[2019-08-09] MEDS: ALLOPURINOL 300 MG TABLET. PO SCH (09:34)
[2019-08-09] MEDS: TAMSULOSIN 0.4 MG CAP.ER.24H. PO SCH (09:34)
[2019-08-09] MEDS: SUCRALFATE 1 GM TABLET. PO SCH (09:34)
[2019-08-09] MEDS: LOSARTAN POTASSIUM 25 MG TABLET. PO SCH (09:35)
[2019-08-09 11:00] VITALS: BP 105/70
--- NOTE | 2019-08-09 12:39 | PDOC ---
PROGRESS NOTES Subjective Subjective Feeling better today. Denied any chest pain. Objective Objective Vital Signs Date Time Temp Pulse Resp B/P (MAP) Pulse Ox O2 Delivery O2 Flow Rate FiO2 08/09/19 11:00 97.6 81 16 105/70 (82) 94 Room Air 97.6 08/08/19 12:56 2.0 Intake and Output 08/09/19 06:59 Intake Total 1428 ml Output Total 570 ml Balance 858 ml Intake Oral 600 ml Other 828 ml Output Urine Total 570 ml Physical Exam Abdomen: Normal bowel sounds, Soft, No tenderness, No hepatosplenomegaly, No masses Heart: Regular rate (SR), Normal S1, Normal S2, Other (EMILEE border 2/6 diastolic murmur) Extremities: No clubbing, No cyanosis, No edema, Normal pulses, No tenderness/swelling General: Alert, Oriented X3, Cooperative, No acute distress HEENT: Atraumatic, PERRLA, EOMI Lungs: Clear to auscultation, Normal air movement Neuro: Normal gait, Normal speech, Normal tone, Reflexes 2+ Psych/Mental Status: Mental status NL, Mood NL Skin: No rashes, No breakdown, No significant lesion Assessment Assessment 1. Chest pain: Cardiac catheterization showed nonobstructive coronary artery disease involving LAD/LCx confirmed insignificant by FFR measurement. Chest pain most probably GI etiology. Continue medical management. 2. HTN: controlled 3. HLP: Statin therapy 4. Hx of cardiomyopathy: LVEF 40-45%, clinically well compensated 5. PPM in situ: due to SSS. Biotronik. Normal functioning device per check and no associated arrhythmias. 44% V paced Follow-up with our office in 1 month. Plan Plan of Care Problems Medical Problems: (1) Abnormal EKG Status: Acute (2) Chest pain Status: Acute (3) Chronic diarrhea Status: Chronic (4) GERD (gastroesophageal reflux disease) Status: Acute (5) HTN (hypertension) Status: Chronic Comment Review of Relevant I have reviewed the following items [place] (where applicable) has been applied. Labs Laboratory Tests Test 08/08/19 14:25 Heparin Anti-Xa Act, Unfractionated 0.77 IU/mL (0.30-0.70) Troponin I Quantitative 0.022 ng/mL (0.000-0.055) Medications Current Medications Adenosine 90 mg/ Sodium Chloride 120 ml @ 200 mls/hr 1X ONCE IV Last administered on 08/08/19at 13:01; Start 08/08/19 at 13:00; Stop 08/08/19 at 13:35; Status DC Amlodipine Besylate (Norvasc) 2.5 mg DAILY PO Last administered on 08/09/19at 09:37; Start 08/09/19 at 09:00 Atorvastatin Calcium (Lipitor) 40 mg QHS PO Last administered on 08/08/19at 20:19; Start 08/08/19 at 21:00 Famotidine (Pepcid) 20 mg QHS PO Last administered on 08/08/19at 20:19; Start 08/08/19 at 21:00 Nitroglycerin (Nitrostat) 0.4 mg PRN Q5MIN PRN SL CHEST PAIN; Start 08/08/19 at 13:00 Simvastatin (Zocor) 80 mg QHS PO ; Start 08/08/19 at 21:00; Stop 08/08/19 at 15:43; Status DC Sodium Chloride 1,000 ml @ 60 mls/hr [id number] IV Last administered on 08/08/19at 14:07; Start 08/08/19 at 12:59 Vitals/I & O Vital Sign - Last 24 Hours 08/08/19 08/08/19 08/08/19 08/08/19 12:50 12:56 13:00 13:15 Pulse 77 78 78 Resp 18 17 B/P (MAP) 134/75 (94) 119/68 (85) Pulse Ox 97 97 O2 Delivery Nasal Cannula Nasal Cannula O2 Flow Rate 2.0 2.0 08/08/19 08/08/19 08/08/19 08/08/19 13:30 13:45 14:00 14:30 Pulse 70 68 70 70 B/P (MAP) 131/77 (95) 133/84 (100) 137/81 (99) 145/81 (102) 08/08/19 08/08/19 08/08/19 08/08/19 15:00 15:30 15:42 19:49 Temp 97.8 97.6 97.8 97.6 Pulse 81 68 82 Resp 18 13 16 B/P (MAP) 137/81 (99) 158/81 (106) 126/78 (94) Pulse Ox 95 95 O2 Delivery Room Air Room Air Room Air 08/08/19 08/08/19 08/09/19 08/09/19 20:00 22:58 02:57 07:00 Temp 97.5 97.8 97.6 97.5 97.8 97.6 Pulse 73 62 75 Resp 16 18 18 B/P (MAP) 122/77 (92) 134/83 (100) 145/77 (99) Pulse Ox 94 69 98 O2 Delivery Room Air Room Air Room Air Room Air 08/09/19 08/09/19 08/09/19 09:37 09:37 11:00 Temp 97.6 97.6 Pulse 75 79 81 Resp 16 B/P (MAP) 145/77 145/77 105/70 (82) Pulse Ox 94 O2 Delivery Room Air Intake and Output 08/08/19 08/08/19 08/09/19 14:59 22:59 06:59 Intake Total 0 ml 1028 ml 400 ml Output Total 150 ml 420 ml Balance 0 ml 878 ml -20 ml HARDIK BRAGG MD Aug 09, 2019 12:39
--- NOTE | 2019-08-09 14:27 | NUR ---
PT LEFT WITH THIS SHIFT AND BOTH WERE GIVEN DISCHARGE INSTRUCTIONS, FOLLOWUP APPTS AND EDUCATION MATERIALS. PT STATES UNDERSTANDING. FOLLOW UP CARD GIVEN FOR 09/20/[address] ABREU. SCRIPT FOR PROTONIX CALLED TO THE MEDICINE STORE IN [place] [phone]. VERBAL ORDER PER DR BRAGG.
--- NOTE | 2019-08-09 21:54 | DS ---
DATE OF DISCHARGE: 08/09/2019 ADMISSION DIAGNOSIS: Chest pain. DISCHARGE DIAGNOSIS: Atypical chest pain. CONSULTS: Cardiology. PROCEDURES: Cardiac catheterization. HOSPITAL COURSE: The patient is a pleasant middle-aged male, who presented with chest pain. He was admitted. We consulted Cardiology, did cardiac monitoring, serial enzymes, serial EKGs. He did go for cardiac catheterization. Apparently, the catheterization has been clean. We plan to discharge if okay with Cardiology. The patient was seen and examined this morning. Heart tones were normal. Lungs were clear. Abdomen was soft. Extremities no edema. We plan to discharge. DISPOSITION: Home. ACTIVITY: As tolerated. DIET: Low sodium. MEDICATIONS: Please see the MRAD. TOTAL TIME: 32 minutes. CHAU CARTER DO DR: SHANTA/cynthia JOB#: [id number] / [id number]
== END 2019-08-09 14:00 | disposition home or self-care (01) | DRG 287 ==
LOC: ER 06:02 → 2 SOUTH 07:20
PROVIDERS: ADMIT Internal Medicine; ATTEND Internal Medicine
PROC: 4A023N7 Measurement of Cardiac Sampling and Pressure, Left Heart, Percutaneous Approach (ICD-10-PCS; principal; 2019-08-08)
PROC: B2111ZZ Fluoroscopy of Multiple Coronary Arteries using Low Osmolar Contrast (ICD-10-PCS; 2019-08-08)
PROC: 4A033BC Measurement of Arterial Pressure, Coronary, Percutaneous Approach (ICD-10-PCS; 2019-08-08)
DX: R07.89 Other chest pain (principal); I50.22 Chronic systolic (congestive) heart failure; I42.9 Cardiomyopathy, unspecified; F32.9 Major depressive disorder, single episode, unspecified; F41.9 Anxiety disorder, unspecified; K21.9 Gastro-esophageal reflux disease without esophagitis; I11.0 Hypertensive heart disease with heart failure; M19.90 Unspecified osteoarthritis, unspecified site; M10.9 Gout, unspecified; N40.0 Benign prostatic hyperplasia without lower urinary tract symptoms; I95.9 Hypotension, unspecified; I49.5 Sick sinus syndrome; E78.5 Hyperlipidemia, unspecified; K52.9 Noninfective gastroenteritis and colitis, unspecified; Z86.73 Personal history of transient ischemic attack (TIA), and cerebral infarction without residual deficits; Z95.0 Presence of cardiac pacemaker; Z87.891 Personal history of nicotine dependence; Z82.49 Family history of ischemic heart disease and other diseases of the circulatory system
CPT/HCPCS: 93458; 93571; 93572; G0269; 36415; 71045; 80053; 80061; 82553; 83690; 83735; 83880; 84443; 84484; 85025; 85520; 85610; 93005; 93306; 99152; 99153; C1760; C1769; C1887; C1892; J0153; J1644; J2250; J3010; J3475; J3490; J7030; Q9967; C1771; G0378

== ENCOUNTER → 2021-05-12 | Outpatient (CLI) | payer MEDICARE ==
--- NOTE | 2021-05-12 15:43 | CARD ---
MR#: [id number] Date of Study: 05/12/2021 Ordering Physician: CORAZON ABREU, Referring Physician: CORAZON ABREU, Tech: Joyce Saldaña [facility] APPROVED REPORT EXAM: Two-dimensional and M-mode echocardiogram with Doppler and color Doppler. Other Information Quality : FairHR: 76bpm Rhythm : NSR INDICATION Cardiac Disease: RISK FACTORS Hypertension 2D DIMENSIONS RVDd3.3 (2.9-3.5cm)Left Atrium(2D)3.7 (1.6-4.0cm) IVSd1.2 (0.7-1.1cm)Aortic Root(2D)3.6 (2.0-3.7cm) LVDd4.6 (3.9-5.9cm)LVOT Diameter2.1 (1.8-2.4cm) PWd1.2 (0.7-1.1cm)LVDs3.2 (2.5-4.0cm) FS (%) 31.7 %SV58.7 ml Aortic Valve AoV Peak Km.107.6cm/sAoV VTI18.7cm AO Peak GR.4.6mmHgLVOT Peak Km.94.6cm/s AO Mean GR.3mmHgAVA (VMAX)3.05cm2 Tricuspid Valve TR P. Puqyyknr896mi/sTR Peak Gr.19mmHg LEFT VENTRICLE The left ventricle is normal size. There is borderline to mild concentric left ventricular hypertroph y. The systolic function is minimally impaired. Ejection fraction is estimated at 45%. There is mini mal global hypokinesis of the left ventricle. RIGHT VENTRICLE The right ventricle is normal size. There is normal right ventricular wall thickness. The right ventr icular systolic function is normal. ATRIA The left atrium size is normal. The right atrium size is normal. The interatrial septum is intact wit h no evidence for an atrial septal defect or patent foramen ovale as noted on 2-D or Doppler imaging. AORTIC VALVE The aortic valve is normal in structure and function. Doppler and Color Flow revealed mild aortic reg urgitation. There is no significant aortic valvular stenosis. MITRAL VALVE The mitral valve is normal in structure and function. There is no evidence of mitral valve prolapse. There is no mitral valve stenosis. Doppler and Color-flow revealed mild mitral regurgitation. TRICUSPID VALVE The tricuspid valve is normal in structure and function. Doppler and Color Flow revealed mild tricusp id regurgitation. Estimated PAP 25-30 mmHg. There is no tricuspid valve stenosis. PULMONIC VALVE The pulmonary valve is normal in structure and function. Doppler and Color Flow revealed trace pulmon ic valvular regurgitation. GREAT VESSELS The aortic root is mildly enlarged. The IVC was not visualized. PERICARDIAL EFFUSION There is no evidence of significant pericardial effusion. Critical Notification Critical Value: No <Conclusion> The left ventricle is normal size. The systolic function is minimally impaired. Ejection fraction is estimated at 45%. There is minimal global hypokinesis of the left ventricle. There is borderline to mild concentric left ventricular hypertrophy. Doppler and Color Flow revealed mild aortic regurgitation. There is no significant aortic valvular stenosis. Doppler and Color-flow revealed mild mitral regurgitation. Doppler and Color Flow revealed mild tricuspid regurgitation. Estimated PAP 25-30 mmHg. Signed by : Aaron Reinoso MD Electronically Approved : 05/12/2021 15:43:20
--- NOTE | 2021-05-13 10:38 | RAD ---
MR#: [id number] Date of Study: 05/12/2021 Ordering Physician: CORAZON ABREU, Referring Physician: CORAZON ABREU, Tech: Marc De Leon MBA, RDMS, RVT, RDCS, RTR APPROVED REPORT Indications CVA Doppler Spectral Velocity Analysis Right Left pCCA 66/13 cm/spCCA 69/13 cm/s mCCA 53/17 cm/smCCA 73/20 cm/s dCCA 65/15 cm/sdCCA 63/17 cm/s Bulb 63/19 cm/sBulb 207/41 cm/s ECA 93/ cm/sECA 205/ cm/s pICA 91/34 cm/spICA 133/33 cm/s Nancy 143/44 cm/smICA 113/31 cm/s dICA 127/35 cm/sdICA 72/23 cm/s Vert. 29/ cm/sVert. 51/ cm/s Subcl. 70/ cm/sSubcl. 87/ cm/s ICA/CCA 2.17ICA/CCA 1.93 Findings Grayscale images the bilateral carotid vessels demonstrates moderate to heavy calcific plaque located at the bilateral carotid bulbs. On the right side there is moderate 50 to 69% stenosis based on velocity criteria in the mid internal carotid artery. ICA to CCA ratios are elevated at 2.7. Normal antegrade vertebral velocities are n oted. No significant subclavian stenosis is noted. On the left side there is likely a 70% stenosis involving the distal common carotid artery at the lev el of the carotid bulb. Plaque extends into the internal and external carotid vessels with likely mo derate stenosis involving the proximal internal carotid artery based on velocity criteria. ICA to CC A ratios are within normal limits although this may be artificial related to the common carotid arter y stenosis. Antegrade vertebral velocities are noted with normal subclavian velocities. Critical Notification Critical Value: No <Conclusion> 1. Moderate right internal carotid arterial disease 2. Moderate to severe left distal common carotid arterial disease. 3. Consider CT angiography for further delineation. Signed by : Corazon Abreu, Electronically Approved : 05/13/2021 10:37:20
== END ==
LOC: ECHO 14:33
PROVIDERS: ATTEND Internal Medicine Cardiovascular Disease
DX: I08.3 Combined rheumatic disorders of mitral, aortic and tricuspid valves (principal); I65.23 Occlusion and stenosis of bilateral carotid arteries
CPT/HCPCS: 93306; 93880

== ENCOUNTER → 2021-08-09 | Outpatient (CLI) | payer MEDICARE ==
[~2021-08-09] MED LIST changes: +IOHEXOL 300 MG/ML 100ML VIAL. IV ONE; +LANS15CA73 PO; -LANS15CA78 PO; +REGADENOSON 0.4 MG/5 ML DISP.SYRIN. IV ONE
[2021-08-09 08:22] LABS: CALCIUM 9.9 mg/dL (8.5-10.1); GFR 71.7; POTASSIUM 4.9 mmol/L (3.5-5.1)
--- NOTE | 2021-08-09 09:31 | RAD ---
EXAM: 1. CTA HEAD WITH AND WITHOUT CONTRAST. 2. CTA NECK WITH AND WITHOUT CONTRAST. HISTORY: Cerebrovascular accident, carotid atherosclerosis. TECHNIQUE: Computed tomographic angiography of the head and neck was performed before and after the i ntravenous administration of iodinated contrast. Three-dimensional reconstructions were also performe d. One or more of the following individualized dose reduction techniques were utilized for this exami nation: 1. Automated exposure control. 2. Adjustment of the mA and/or kV according to patient size. 3. Use of iterative reconstruction technique. COMPARISON: 02/04/2019. FINDINGS: Angiographic findings: There is a common origin of the left common carotid and brachiocephalic arteri es, a variant of normal. There are diffuse atherosclerotic calcifications of the aortic arch without aneurysm. There is no arch vessel stenosis. There are bulky atherosclerotic calcifications of the left greater than right carotid bulbs. There is 50% stenosis secondary to noncalcified plaquing within the proximal right cervical internal carotid artery. There also appears to be approximately 50% stenosis at the left carotid bulb extending to the origin of the left internal carotid artery. The external carotid systems are patent. The left vertebral artery is patent and the right relatively small. Both are patent. The basilar artery is patent. There is a persistent origin of the left posterior cerebral arter y. Both posterior cerebral arteries are patent. There are moderate atherosclerotic calcifications along both cavernous internal carotid arteries with out clear stenosis. The middle cerebral arteries are patent. The anterior cerebral arteries are paten t. The anterior communicating artery is visualized. Nonangiographic findings: There is no intracranial hemorrhage. Hypoattenuation within the periventric ular white matter indicates moderate to severe chronic small vessel ischemic white matter change. Pro minence of the lateral ventricles and hemispheric sulci indicate moderate atrophy. The paranasal sinuses appear clear. The orbits are unremarkable. The temporal bones are unremarkable. Bone windows reveal a sclerotic region within the T2 vertebral body, new since the prior study. The lung apices demonstrate no acute abnormality. The parotid glands and submandibular glands are unremarkable. An 19 mm nodule containing a coarse abdoulaye cification at the right thyroid lower pole appears stable chronically. There are no suspicious laryngeal or pharyngeal masses. Small bilateral pneumatosis laryngoceles trupti ure up to 8 x 4 mm on the right. There are no pathologically enlarged lymph nodes. IMPRESSION: 1. 50% stenosis at the left carotid bulb and within the proximal right cervical internal carotid nena ry. 2. Moderate atrophy and moderate to severe chronic microangiopathic white matter change. 3. New sclerotic lesion within the T2 vertebral body. Correlate for prostate cancer or other potentia l causes. PQRS Compliance Statement - Stenosis calculations for CT, MR and conventional angiography are based u mer measurement of the distal ICA diameter in accordance with the NASCET methodology. Stenosis calcu lations for carotid ultrasound studies are derived from validated velocity criteria which are known t o correlate with the NASCET methodology. Electronically signed by: John Morrison MD (08/09/2021 9:28 AM) [facility]
--- NOTE | 2021-08-10 11:11 | RAD ---
MR#: [id number] Date of Study: 08/09/2021 Ordering Physician: CORAZON GUERRERO, Referring Physician: SANDRA ARRIAZA Tech: COLBY Nunez APPROVED REPORT Test Type: Pharmacological Stress Nurse/Tech: Penny Castellanos RN Test Indications: CAD Cardiac History: Hypertension,pacemaker,CVA Medications: See Electronic Medical Record Medical History: See Electronic Medical Record Resting ECG: Paced rhythm Resting Heart Rate: 80 bpm Resting Blood Pressure: 154/84mmHg Pretest Chest Pain: No chest pain Nurse/Tech Notes S1,S2 and lungs clear to auscultation. Consent: The procedure was explained to the patient in lay terms. Informed consent was witnessed. Robert eout was entered into [employer]. History and Stress Test performed by COLBY Nunez Pharm. Details Pharmacologic stress testing was performed using 0.4mg per 5ml of regadenoson given intravenously ove r 7-10 seconds. Stress Symptoms No chest pain or symptoms. POST EXERCISE Reason for Termination: Reached target heart rate, Infusion complete Target HR: Yes Max HR: 160 bpm 135% of Maximum Predicted HR: 118 bpm Max Blood Pressure: 147/79mmHg Blood Pressure response to exercise: Normal blood pressure response during stress. Heart Rate response to exercise: WNL Chest Pain: No. Arrhythmia: No. ST Change: No. INTERPRETATION Stress EKG Conclusion: Non-diagnostic EKG due to pacing artifact. Imaging Protocol IMAGE PROTOCOL: Rest Tc-99m/stress Tc-99m 1 day Rest: Stress: Viability: Radiopharm.Tc99m UxwmbplrdZr83a Sestamibi Thjb09wVw 33mCi Duration 15min. 13min. Img Date 08/09/2021 08/09/2021 Inj-Img [id number]. 60min. Rest Admin Site:IV - Left AntecubitalAdministrator:RT Obey (R)(N) Stress Admin Site: IV - Left AntecubitalAdministrator: RT Obey (R)(N) STRESS DATA End Diast. Vol.128.0mlLVEDV index BSA65.0ml End Syst. Vol.71.0mlLVESV index BSA36.0ml Myocardial Ibox179.0gEject. Rdsolgma55.0% Stress Scores Regional WT1.00Summed WT22.00 Regional WM1.00Summed WM17.00 LV Perfusion There is a moderate to large size basal to distal inferior and basal inferoseptal and inferolateral m ostly fixed defect with mild amparo-infarct reversibility in the basal lateral segment. Wall Motion Moderate LV dysfunction, EF 45%. LV Perf. Quant 17 Seg. SSS12.00 17 Seg. SRS13.00 17 Seg. SDS0.00 Stress Defect Extent (% LAD)16.90Rest Defect Extent (% LAD)8.10Rev. Defect Extent (% LAD)11.30 Stress Defect Extent (% LCX) 25.00Rest Defect Extent (% LCX)28.80Rev. Defect Extent (% LCX)1.30 Stress Defect Extent (% RCA)26.70Rest Defect Extent (% RCA)27.80Rev. Defect Extent (% RCA)2.20 Stress Defect Extent (% DAMON)22.40Rest Defect Extent (% DAMON)21.10Rev. Defect Extent (% DAMON)4.60 Other Information Quality:Fair Risk Assessment: Moderate-High Risk Conclusion 1. Nondiagnostic stress EKG due to pacing artifact 2. Large predominantly fixed inferior defect with mild amparo-infarct reversibility. 3. Mild LV dysfunction, EF 45%. 4. Moderate to high risk for future cardiovascular events Signed by : Corazon Guerrero, Electronically Approved : 08/10/2021 11:10:28
== END ==
LOC: NM 09:37
PROVIDERS: ATTEND Internal Medicine Cardiovascular Disease
DX: I63.9 Cerebral infarction, unspecified (principal); I67.82 Cerebral ischemia; I65.23 Occlusion and stenosis of bilateral carotid arteries; G31.9 Degenerative disease of nervous system, unspecified; E04.1 Nontoxic single thyroid nodule; I21.9 Acute myocardial infarction, unspecified; I51.9 Heart disease, unspecified
CPT/HCPCS: 36415; 70496; 70498; 78452; 80048; 93017; A9500; J2785; Q9967